=== PATIENT | male | born 1935 | race African-American/Black ===

== ENCOUNTER → 2017-02-08 | Outpatient (CLI) | payer MEDICARE, OTHER ==
[2017-02-08 16:21] LABS: HEMATOCRIT 43.5 % (37.9-51.0); HEMOGLOBIN 14.2 g/dL (13.5-17.0); HGB HCT DIFFERENCE -0.9; MEAN CORPUSCULAR HEMOGLOBIN 30.1 pg (27.0-33.4); MEAN CORPUSCULAR HGB CONC 32.6 g/dL (32.0-36.0); MEAN CORPUSCULAR VOLUME 92 fl (80-97); RED BLOOD COUNT 4.71 10^6/uL (4.35-5.55); RED CELL DISTRIBUTION WIDTH 15.7 % (11.5-14.0)
[2017-02-08 16:43] LABS: ANION GAP 8 (5-19); BLOOD UREA NITROGEN 24 mg/dL (7-20); CALCIUM 9.8 mg/dL (8.4-10.2); CARBON DIOXIDE 31 mmol/L (22-30); CHLORIDE 105 mmol/L (98-107); CREATININE RESULT 1.41 mg/dL (0.52-1.25); GLUCOSE 123 mg/dL (75-110); MAGNESIUM 1.6 mg/dL (1.6-2.3); POTASSIUM 4.4 mmol/L (3.6-5.0); SODIUM 143.8 mmol/L (137-145)
[2017-02-09 08:21] LABS: BASOPHILS % (MANUAL) 0 % (0-2); EOSINOPHILS % (MANUAL) 3 % (0-6); LYMPHOCYTES % (MANUAL) 41 % (13-45); TOTAL CELLS COUNTED 100
[2017-02-09 08:32] LABS: ANISOCYTOSIS SLIGHT; OVALOCYTES SLIGHT; POIKILOCYTOSIS 1+; TARGET CELLS SLIGHT
[2017-02-09 08:33] LABS: PLATELET CLUMPS PRESENT
== END ==
LOC: OD 15:53
PROVIDERS: ATTEND Internal Medicine Cardiovascular Disease
DX: I25.10 Atherosclerotic heart disease of native coronary artery without angina pectoris (principal); I50.22 Chronic systolic (congestive) heart failure
CPT/HCPCS: 36415; 80048; 83735; 85025; 85027; 85610

== ENCOUNTER → 2017-09-22 | Outpatient (CLI) | payer MEDICARE, OTHER ==
--- NOTE | 2017-09-22 17:25 | ST Modified Barium Swallow ---
Recommendation - Recommendations Recommendations: Recommend alternating solids and liquids, and hard swallows to reduce residue. Medical Diagnoses - Medical Diagnoses Medical Diagnosis Description & ICD-10 Code(s): dysphagia R13.10 Other Medical Diagnoses/Co-Morbidities: Patient reports reflux, COPD, heart problems. ST Modified Barium Swallow - General Date: 09/22/17 Referring Physician: Dr. Shady Reece Reason for Referral: globus sensation, coughing with PO intake - History History obtained from: Patient -: Medical - Patient reports difficulty with swallowing, predominately solids, for approximately 2 months. Medications: Patient unable to list medications, does state that he is on a reflux medication. Allergies: none reported. - Functional Status Prior Functional Status: INDEPENDENT: feeding - independent - Subjective Patient/caregiver goal(s): safe swallow Cognitive-Linguistic Function: WNL Speech Intelligibility: WNL Current Nutritional Means: PO Current PO diet: Regular Current symptoms: Coughing, c/o Globus sensation Pain: Patient reports, 0/5 - Objective Assessment: Upright, Left Lateral - Food Trials Used Food trials used: Thin liquids, Pureed, Regular The patient: Was Able to Self Feed - Oral-Motor Skills Dentition: Dentures-Upper, Dentures-Lower Laryngeal Function: Volitional Cough - WFL, Volitional Swallow - WFL - Assessment Oral prep: Normal Labial closure: Adequate Leakage: None Mastication: Adequate Lingual Movement: Normal Oral stage: Normal for this Procedure - Pharyngeal Stage Initiation of Pharyngeal Stage Reflex: Normal Decreased laryngeal elevation: No Reduced Velopharyngeal Closure: no Reduced pressure generation: No reduced tongue-based retraction: No Pre-swallow pooling in valleculae: None Pre-Swallow pooling in pyriforms: None Reduced Thyro-Hyoid approximation: No Reduced epiglottic excursion: No Multiple Swallows with: Cleared w/ Liquid Assist Post-swallow residulas vallecular: Moderate Post-Swallow residuals in pyriforms: Mild Post-Swallow Residuals: throughout pharynx - mild Pharyngeal Stage Comments: Increased calcification of structures in pharyngeal and tracheal area. Functional swallow seen, some residue present after the swallow, mostly clears with liquid wash. - Esophageal Stage Esophageal Stage: Some signs of esophageal issues, may benefit from further gastrointestinal consult for reflux. - Fall Risk Assessment Medications/Conditions that increase fall risks include: Antidepressants, sedatives, anti-arrhythmic, diuretic, benzodiazipenes, neuroleptics. BP regulation problems, cardiac problems, balance or gait deficits, neurological problems. Is patient considered at risk for falls: no Fall Risk Actions Taken: No action needed - Behavioral Observations During evaluation process patient: was pleasant, was cooperative, able to answer questions - Treatment / Educational Needs: Treatment/Education Needs: Treatment consisted of patient education on the role of the Speech Pathologist. Patient's plan of care and golas were communicated as well as scheduling and attendance policies. Recommendations for initial home program were shared. Patient demonstrated understanding and verbalized agreement. - Impression/Summary Laryngeal Penetration: No Tracheal Aspiration: no Effective compensatory strategies: hard swallow Compesatory strategies: liquid wash Risk of Aspiration: Mild Risk of nutritional compromise: None Evaluation and Findings: Functional pharyngeal phase swallow, some residue present post swallow, liquid wash facilitated clearance. - Recommendations Solid diet recommendations: Regular - avoiding specific foods (nuts, seeds, etc. ) Pt/Family education and followup with MD: Yes Dysphagia therapy with STAFF CONSULTANT: no Reflux Precautions: Taught to Patient Recommended techniques: Fully Upright During Meal, Small Bites and Sips, Alternate Bites/Sips Information, Precautions and Recommendations: Patient (Written), Patient (Verbal ) - Time Total Time: 20 - Plan of Care Patient to follow-up with referring physician: Yes Strategies to optimize patient understanding include:: ongoing assessment of educational needs, implementation of educational strategies, and re-education. - - -: Thank you for the opportunity to work with this patient and his/her family. Should you have any questions about this patient's plan or progress, I can be reached at [phone]. Charge G Code? - - -: Yes ST F.L. Impairment Category - Rationale Based On Rationale Based On: Func. Asses. Tool Results - Swallowing Current G8996: CI 1-19% Impaired Goal G8997: CI 1-19% Impaired Discharge G8998: CI 1-19% Impaired
--- NOTE | 2017-09-22 18:02 | RADIOLOGY REPORT (SQ) ---
EXAM DESCRIPTION: YASMINE SWALLOW COMPLETED DATE/TIME: 09/22/2017 9:00 am REASON FOR STUDY: DYSPHAGIA R13.10 DYSPHAGIA, UNSPECIFIED COMPARISON: None. TECHNIQUE: Videofluoroscopic swallowing examination was performed in conjunction with speech patholo gy. Videofluoroscopic imaging was obtained and reviewed and these are the findings: RADIATION DOSE: Fluoro time 2.3 minutes 1 images saved to PACS. LIMITATIONS: None FINDINGS: The patient was brought into the fluoro room and placed upright on a modified barium swall ow chair. The patient was then given multiple consistencies mixed with barium to swallow under live fluoroscopic video guidance. According to the Speech Pathologist there was no penetration or aspirat ion. 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 IMPRESSION: NO EVIDENCE OF PENETRATION OR ASPIRATION.PLEASE SEE SPEECH PATHOLOGIST REPORT FOR OTHER FINDINGS AND RECOMMENDATIONS. COMMENT: None Quality ID [id number]: Final reports for procedures using fluoroscopy that document radiation exposure nathan zenon, or exposure time and number of fluorographic images (if radiation exposure indices are not avail able) TECHNICAL DOCUMENTATION: JOB ID: [id number] [employer]- All Rights Reserved
== END ==
LOC: RAD 08:21
PROVIDERS: ATTEND Otolaryngology
DX: R13.10 Dysphagia, unspecified (principal)
CPT/HCPCS: 74230; 92611; G8996; G8997; G8998

== ENCOUNTER 2017-10-01 16:38 | Inpatient (IN) | payer MEDICARE, OTHER ==
[2017-10-01 17:17] LABS: ABSOLUTE EOSINOPHILS # (AUTO) 0.1 10^3/uL (0.0-0.6); ABSOLUTE MONOCYTES (AUTO) 0.7 10^3/uL (0.1-1.4); BASOPHILS % (AUTO) 0.6 % (0-2); EOSINOPHILS % (AUTO) 1.7 % (0-6); HEMATOCRIT 43.8 % (37.9-51.0); HEMOGLOBIN 14.3 g/dL (13.5-17.0); LYMPHOCYTES % (AUTO) 38.3 % (13-45); MEAN CORPUSCULAR HEMOGLOBIN 30.2 pg (27.0-33.4); MEAN CORPUSCULAR HGB CONC 32.7 g/dL (32.0-36.0); MEAN CORPUSCULAR VOLUME 92 fl (80-97); MONOCYTES % (AUTO) 9.3 % (3-13); PLATELET COUNT 173 10^3/uL (150-450); RED BLOOD COUNT 4.74 10^6/uL (4.35-5.55); RED CELL DISTRIBUTION WIDTH 16.7 % (11.5-14.0); SEGMENTED NEUTROPHILS % (AUTO) 50.1 % (42-78); TOTAL CELLS COUNTED % (AUTO) 100 %; WHITE BLOOD COUNT 7.9 10^3/uL (4.0-10.5)
--- NOTE | 2017-10-01 17:58 | RADIOLOGY REPORT (SQ) ---
EXAM DESCRIPTION: CHEST SINGLE VIEW COMPLETED DATE/TIME: 10/01/2017 5:28 pm REASON FOR STUDY: sob COMPARISON: 02/08/2015 EXAM PARAMETERS: NUMBER OF VIEWS: One view. TECHNIQUE: Single frontal radiographic view of the chest acquired. RADIATION DOSE: NA LIMITATIONS: None. FINDINGS: LUNGS AND PLEURA: Bibasilar patchy mixed interstitial and airspace opacities. Small bilat eral pleural effusions. No focal consolidation. MEDIASTINUM AND HILAR STRUCTURES: No masses. Contour normal. HEART AND VASCULAR STRUCTURES: Cardiomegaly. Mild central vascular congestion. BONES: No acute findings. HARDWARE: None in the chest. OTHER: No other significant finding. IMPRESSION: Constellation of findings consistent with CHF exacerbation. Superimposed infectious pro cess is not excluded. TECHNICAL DOCUMENTATION: JOB ID: [id number] [employer]- All Rights Reserved
--- NOTE | 2017-10-01 18:10 | ER Document Report ---
ED General - General Stated Complaint: SHORTNESS OF BREATH Time Seen by Provider: 10/01/17 17:52 Notes: 81-year-old male to the emergency department for evaluation of shortness of breath. Cannot lay flat. Dyspnea on exertion. Worsening swelling to lower extremities. History of CHF. History of COPD. No have history of blood clots[facility] No open heart surgery. No stents. By Dr. Rouse with cardiology TRAVEL OUTSIDE OF THE [place] IN LAST 30 DAYS: No - HPI Onset: Last week Onset/Duration: Gradual, Worse Severity: Moderate - Related Data Allergies/Adverse Reactions: No Known Allergies Allergy (Verified 12/22/13 22:49) Past Medical History - General Information source: Patient - Social History Smoking Status: Never Smoker Cigarette use (# per day): No Frequency of alcohol use: None Drug Abuse: None Lives with: Spouse/Significant other Family History: Reviewed & Not Pertinent - Past Medical History Cardiac Medical History: Reports: Hx Hypercholesterolemia, Hx Hypertension Denies: Hx Heart Attack Pulmonary Medical History: Reports: Hx COPD Endocrine Medical History: Reports: Hx Diabetes Mellitus Type 2, Hx Hyperthyroidism Past Surgical History: Reports: Hx Appendectomy, Hx Genitourinary Surgery - prostate ca surgery - Immunizations Hx Diphtheria, Pertussis, Tetanus Vaccination: Yes Review of Systems - Review of Systems Constitutional: No symptoms reported EENT: No symptoms reported Cardiovascular: Orthopnea, Dyspnea, Edema, Paroxysmal Nocturnal Dysp. denies: Syncope, Dizziness, Lightheaded Respiratory: Short of breath Gastrointestinal: No symptoms reported Genitourinary: No symptoms reported Male Genitourinary: No symptoms reported Musculoskeletal: No symptoms reported Skin: No symptoms reported Hematologic/Lymphatic: No symptoms reported Neurological/Psychological: No symptoms reported Physical Exam - Vital signs Vitals: Temp Pulse Resp BP Pulse Ox 98.2 F 44 L 13 146/70 H 98 10/01/17 16:40 10/01/17 16:40 10/01/17 16:40 10/01/17 16:40 10/01/17 16:40 Interpretation: Normal - General General appearance: Appears well, Alert - HEENT Head: Normocephalic, Atraumatic Eyes: Normal Pupils: PERRL - Respiratory Respiratory status: No respiratory distress Chest status: Nontender Breath sounds: Wheezing - Faint expiratory wheeze Chest palpation: Normal - Cardiovascular Rhythm: Regular Murmur: No Gallop: S3 gallop - Abdominal Inspection: Normal Distension: No distension Bowel sounds: Normal Tenderness: Nontender Organomegaly: No organomegaly - Back Back: Normal, Nontender - Extremities General upper extremity: Normal inspection, Nontender, Normal color, Normal ROM , Normal temperature General lower extremity: Normal inspection, Nontender, Edema, Normal color, Normal ROM, Normal temperature, Normal weight bearing, Other - 3+ pitting edema bilateral lower extremities.. No: Ralph's sign - Neurological Neuro grossly intact: Yes Cognition: Normal Orientation: AAOx4 [place] Coma Scale Eye Opening: Spontaneous [place] Coma Scale Verbal: Oriented [place] Coma Scale Motor: Obeys Commands [place] Coma Scale Total: 15 Speech: Normal Motor strength normal: LUE, RUE, LLE, RLE Sensory: Normal - Psychological Associated symptoms: Normal affect, Normal mood - Skin Skin Temperature: Warm Skin Moisture: Dry Skin Color: Normal Course - Re-evaluation Re-evalutation: 10/01/17 19:48 This is a very pleasant 81-year-old -[place] male in no acute distress with complaint of shortness of breath. Patient showing manifestations of congestive heart failure. Large amount of lower extremity edema with chest x- ray consistent with CHF exacerbation. Will start on aspirin and Lasix. Consult with hospitalist for admission at this time. - Vital Signs Vital signs: Temp Pulse Resp BP Pulse Ox 98.2 F 44 L 22 H 131/70 H 99 10/01/17 16:40 10/01/17 16:40 10/01/17 19:01 10/01/17 19:01 10/01/17 19:00 - Laboratory Result Diagrams: 10/01/17 17:00 10/01/17 18:19 Laboratory results interpreted by me: 10/01/17 10/01/17 10/01/17 17:00 18:19 18:19 RDW 16.7 H BUN 28 H Creatinine 1.62 H Est GFR ( Amer) 49 L Est GFR (Non-Af Amer) 41 L NT-Pro-B Natriuret Pep 8870 H Total Protein 6.1 L Urine Glucose (UA) Ur Leukocyte Esterase 10/01/17 18:23 RDW BUN Creatinine Est GFR ( Amer) Est GFR (Non-Af Amer) NT-Pro-B Natriuret Pep Total Protein Urine Glucose (UA) 50 H Ur Leukocyte Esterase TRACE H - EKG Interpretation by Me EKG shows normal: Sinus rhythm, [place], Intervals, QRS Complexes, ST-T Waves Rhythm: PVC's [place]/QRS: RBBB Discharge - Discharge Clinical Impression: Congestive heart failure (CHF) Qualifiers: Congestive heart failure type: unspecified Congestive heart failure chronicity : acute on chronic Qualified Code(s): I50.9 - Heart failure, unspecified Admitting Provider: Hospitalist Unit Admitted: Telemetry - Francois Referrals: SHARATH ALVAREZ MD [Primary Care Provider] - Follow up as needed
[2017-10-01 18:46] LABS: ALANINE AMINOTRANSFERASE 69 U/L (21-72); ALBUMIN 3.5 g/dL (3.5-5.0); ALKALINE PHOSPHATASE 81 U/L (38-126); ANION GAP 8 (5-19); ASPARTATE AMINO TRANSFERASE 41 U/L (17-59); BILIRUBIN,DIRECT 0.3 mg/dL (0.0-0.4); BILIRUBIN,TOTAL 0.5 mg/dL (0.2-1.3); BLOOD UREA NITROGEN 28 mg/dL (7-20); CALCIUM 9.9 mg/dL (8.4-10.2); CARBON DIOXIDE 28 mmol/L (22-30); CHLORIDE 106 mmol/L (98-107); CREATINE KINASE 105 U/L (55-170); GLUCOSE 105 mg/dL (75-110); POTASSIUM 4.4 mmol/L (3.6-5.0); SODIUM 142.4 mmol/L (137-145); TOTAL PROTEIN 6.1 g/dL (6.3-8.2)
[2017-10-01 18:48] LABS: APPEARANCE,URINE CLEAR; BILIRUBIN,URINE NEGATIVE (NEGATIVE); COLOR,URINE YELLOW; GLUCOSE, URINE 50 mg/dL (NEGATIVE); KETONES,URINE NEGATIVE (NEGATIVE); LEUKOCYTE ESTERASE,URINE TRACE (NEGATIVE); NITRITE,URINE NEGATIVE (NEGATIVE); PROTEIN,URINE NEGATIVE (NEGATIVE); URINE SPECIFIC GRAVITY 1.013; UROBILINOGEN,URINE NEGATIVE mg/dL (<2.0)
[2017-10-01 19:14] LABS: CREATINE KINASE MB 2.68 ng/mL (<4.55)
[2017-10-01 19:19] LABS: TROPONIN I 0.06 ng/mL
[2017-10-01] MEDS ORDERED: ASPIRIN 81 MG TABLET, CHEWABLE PO ONE (19:40)
[2017-10-01] MEDS ORDERED: FUROSEMIDE INJ/PF 40 MG/4 ML SDV IV ONE (19:40)
[2017-10-01] MEDS ORDERED: CHLORPHENIRAMINE MALEATE 4 MG TABLET PO ONE (19:47)
[2017-10-01] MEDS ORDERED: ENALAPRILAT DIHYDRATE INJ/PF 1.25 MG/1 ML SDV IV PRN (19:47)
[2017-10-01] MEDS ORDERED: HYDRALAZINE HCL INJ/PF 20 MG/1 ML SDV IV PRN (19:47)
[2017-10-01] MEDS ORDERED: MAG HYDROX/AL HYDROX/SIMETH SUSP 30 ML UDCUP PO PRN (19:47)
[2017-10-01] MEDS ORDERED: ACETAMINOPHEN 325 MG TABLET PO PRN (19:47)
[2017-10-01] MEDS ORDERED: LEVALBUTEROL HCL NEB 1.25 MG/3 ML AMPUL NEB ONE (19:47)
[2017-10-01] MEDS ORDERED: IPRATROPIUM BROMIDE 0.02% NEB 0.5 MG/2.5 ML AMPUL NEB ONE (19:47)
[2017-10-01] MEDS ORDERED: FLUTICASONE NASAL SPRAY 50 MCG/SPRY 120 SPRAY/16 GM NASL ONE (20:30)
[2017-10-01] MEDS ORDERED: NITROGLYCERIN 5 MG (0.2 MG/HR) PATCH.TD24 TD ONE (20:30)
[2017-10-01] MEDS ORDERED: RAMIPRIL 5 MG CAPSULE PO ONE (21:00)
[2017-10-01] MEDS ORDERED: CHLORPHENIRAMINE MALEATE 4 MG TABLET ONE (21:22)
[2017-10-01] MEDS ORDERED: FLUTICASONE NASAL SPRAY 50 MCG/SPRY 120 SPRAY/16 GM ONE (21:23)
[2017-10-01] MEDS ORDERED: RAMIPRIL 5 MG CAPSULE ONE (21:23)
[2017-10-01] MEDS: HEPARIN SOD (PORCINE) 5,000 UNIT/ML 1 ML SYRINGE SUBCUT SCH (21:42)
[2017-10-01] MEDS: CARVEDILOL 3.125 MG TABLET PO SCH (21:42)
[2017-10-01] MEDS ORDERED: GLUCAGON,HUMAN RECOMB 1 MG INJ IM PRN (21:59)
[2017-10-01] MEDS ORDERED: DEXTROSE 40% GEL 15 GM TUBE PO PRN ×2 (21:59)
[2017-10-01] MEDS ORDERED: INSULIN LISPRO 100 UNIT/ML 3 ML VIAL SUBCUT PRN (21:59)
[2017-10-01] MEDS ORDERED: DEXTROSE 50%-WATER 25 GM/50 ML DISP.SYRIN IV PRN ×2 (21:59)
--- NOTE | 2017-10-01 22:19 | EKG REPORT ---
SEVERITY:- ABNORMAL ECG - SINUS RHYTHM RBBB AND LPFB : Confirmed by: Maria L Esqueda 01-Oct-2017 22:17:36
[2017-10-01] MEDS ORDERED: HUM INSULIN NPH/REG INSULIN HM 100 UNIT/1 ML 3 ML SUBCUT ONE (22:46)
[2017-10-02 01:22] LABS: CREATINE KINASE MB 2.39 ng/mL (<4.55); TROPONIN I 0.056 ng/mL
[2017-10-02] MEDS: HEPARIN SOD (PORCINE) 5,000 UNIT/ML 1 ML SYRINGE SUBCUT SCH ×2 (05:35→13:33)
--- NOTE | 2017-10-02 05:46 | PDOC H&P ---
History of Present Illness Admission Date/PCP: 10/01/17 20:04 SHARATH ALVAREZ MD Patient complains of: Shortness of breath and leg swelling History of Present Illness: ABIGAIL BOUDREAUX is a 81 year old male with a past medical history of congestive heart failure, COPD, Coronary artery disease, diabetes and hypothyroidism. Patient presents with 3 days of exertional shortness of breath, orthopnea and leg swelling. In the emergency room he is found to have a tachypnea, BNP of 9000, and 2+ leg edema bilaterally, TSH in normal range. He admits dietary indiscretion, he denies changes in medication, heat intolerance, chest pain nausea vomiting diaphoresis or palpitations. He receives IV Lasix and referred to the hospitalist for admission. Past Medical History Cardiac Medical History: Reports: Congestive Heart Failure, Hyperlipidema, Hypertension Denies: Myocardial Infarction Pulmonary Medical History: Reports: Chronic Obstructive Pulmonary Disease (COPD) Endocrine Medical History: Reports: Diabetes Mellitus Type 2, Hyperthyroidism Renal/ Medical History: Reports: Chronic Kidney Disease Psychiatric Medical History: Denies: Alcohol Dependency, Attention Deficit Hyperactivity Disorder, Bipolar Disorder, Dementia, Depression, General Anxiety Disorder, Substance Abuse, Tobacco Dependency Hematology: Denies: Anemia, Sickle Cell Disease Past Surgical History Past Surgical History: Reports: Appendectomy Social History Information Source: Patient Lives with: Spouse/Significant other Smoking Status: Never Smoker Hx Recreational Drug Use: No Drugs: None - Advance Directive Resuscitation Status: Full Code Family History Family History: Hypertension Parental Family History Reviewed: Yes Children Family History Reviewed: Yes Sibling(s) Family History Reviewed.: Yes Medication/Allergy Home Medications: Insulin Lispro Protamin/Lispro [Humalog Mix 75-25 100 unit/mL] 0 unit SUBCUT ASDIR PRN 10/25/12 Metformin HCl [Glucophage XR 500 mg Tablet] 500 mg PO BID 10/25/12 Methimazole [Northyx] 5 mg PO DAILY 10/25/12 Multivitamin [Multiple Vitamins] 1 each PO DAILY 10/25/12 Ramipril [Altace 5 Mg Capsule] 5 mg PO DAILY 10/25/12 Amox Tr/Potassium Clavulanate [Augmentin 875-125 mg Tablet] 1 tab PO BID #20 tablet 02/08/15 Allergies/Adverse Reactions: No Known Allergies Allergy (Verified 12/22/13 22:49) Review of Systems Constitutional: ABSENT: chills, fever(s), headache(s), weight gain, weight loss Eyes: ABSENT: visual disturbances Ears: ABSENT: hearing changes Cardiovascular: PRESENT: dyspnea on exertion, edema, orthropnea. ABSENT: chest pain, palpitations Respiratory: PRESENT: cough, sputum. ABSENT: hemoptysis Gastrointestinal: ABSENT: abdominal pain, constipation, diarrhea, hematemesis, hematochezia, nausea, vomiting Genitourinary: ABSENT: dysuria, hematuria Musculoskeletal: PRESENT: muscle weakness. ABSENT: joint swelling Integumentary: ABSENT: rash, wounds Neurological: ABSENT: abnormal gait, abnormal speech, confusion, dizziness, focal weakness, syncope Psychiatric: ABSENT: anxiety, depression, homidical ideation, suicidal ideation Endocrine: ABSENT: cold intolerance, heat intolerance, polydipsia, polyuria Hematologic/Lymphatic: ABSENT: easy bleeding, easy bruising Physical Exam Vital Signs: Temp Pulse Resp BP Pulse Ox 98.0 F 44 L 18 119/84 98 10/02/17 03:00 10/01/17 16:40 10/02/17 05:01 10/02/17 05:01 10/02/17 05:00 Intake & Output 09/30/17 10/01/17 10/02/17 11:59 11:59 11:59 Output Total 1300 Balance -1300 General appearance: PRESENT: cooperative, mild distress Head exam: PRESENT: atraumatic, normocephalic Eye exam: PRESENT: conjunctiva pink, EOMI, PERRLA. ABSENT: scleral icterus Ear exam: PRESENT: normal external ear exam Mouth exam: PRESENT: moist, tongue midline Neck exam: ABSENT: carotid bruit, JVD, lymphadenopathy, thyromegaly Respiratory exam: PRESENT: accessory muscle use, crackles, prolonged expiratory phas, tachypnea. ABSENT: chest wall tenderness Cardiovascular exam: PRESENT: RRR, rubs, +S2 Pulses: PRESENT: normal dorsalis pedis pul Vascular exam: PRESENT: normal capillary refill GI/Abdominal exam: PRESENT: normal bowel sounds, soft. ABSENT: distended, guarding, mass, organolmegaly, rebound, tenderness Rectal exam: PRESENT: deferred Extremities exam: PRESENT: full ROM, +2 edema. ABSENT: calf tenderness, clubbing, pedal edema Neurological exam: PRESENT: alert, awake, oriented to person, oriented to place , oriented to time, oriented to situation, CN II-XII grossly intact. ABSENT: motor sensory deficit Psychiatric exam: PRESENT: appropriate affect, normal mood. ABSENT: homicidal ideation, suicidal ideation Skin exam: PRESENT: dry, intact, warm. ABSENT: cyanosis, rash Results Laboratory Results: 10/02/17 10/02/17 00:38 00:38 Creatine Kinase 96 CK-MB (CK-2) 2.39 Troponin I 0.056 Impressions: Chest X-Ray 10/01/17 16:50 IMPRESSION: Constellation of findings consistent with CHF exacerbation. Superimposed infectious process is not excluded. Assessment & Plan - Diagnosis (1) Congestive heart failure (CHF) Qualifiers: Congestive heart failure type: unspecified Congestive heart failure chronicity: acute on chronic Qualified Code(s): I50.9 - Heart failure, unspecified Is this a current diagnosis for this admission?: Yes Plan: Blood pressure and rate control, likely secondary to dietary indiscretion, gentle diuresis and education ordered follow-up TSH and cardiac enzymes. (2) COPD exacerbation Is this a current diagnosis for this admission?: Yes Plan: Secondary to #1, avoid beta-2 agonist, Xopenex and Atrovent with flutter valve. (3) Diabetes Is this a current diagnosis for this admission?: Yes Plan: Home regiment with sliding scale and diabetic education (4) Chronic kidney disease (CKD) Is this a current diagnosis for this admission?: Yes Plan: Limit loop diuretic, nephrotoxic meds and doses follow-up chemistry. - Time Time Spent: 50 to 70 Minutes
[2017-10-02 06:50] LABS: ABSOLUTE BASOPHILS # (AUTO) 0.1 10^3/uL (0.0-0.2); ABSOLUTE EOSINOPHILS # (AUTO) 0.1 10^3/uL (0.0-0.6); ABSOLUTE LYMPHOCYTES (AUTO) 2.3 10^3/uL (0.5-4.7); ABSOLUTE MONOCYTES (AUTO) 0.7 10^3/uL (0.1-1.4); ABSOLUTE NEUT (AUTO) 3.1 10^3/uL (1.7-8.2); BASOPHILS % (AUTO) 0.9 % (0-2); EOSINOPHILS % (AUTO) 2.3 % (0-6); HEMATOCRIT 41.8 % (37.9-51.0); HEMOGLOBIN 13.7 g/dL (13.5-17.0); LYMPHOCYTES % (AUTO) 36.6 % (13-45); MEAN CORPUSCULAR HGB CONC 32.8 g/dL (32.0-36.0); MEAN CORPUSCULAR VOLUME 92 fl (80-97); PLATELET COUNT 147 10^3/uL (150-450); RED BLOOD COUNT 4.56 10^6/uL (4.35-5.55); RED CELL DISTRIBUTION WIDTH 16.5 % (11.5-14.0); SEGMENTED NEUTROPHILS % (AUTO) 49.2 % (42-78); TOTAL CELLS COUNTED % (AUTO) 100 %; WHITE BLOOD COUNT 6.4 10^3/uL (4.0-10.5)
[2017-10-02 07:07] LABS: ANION GAP 8 (5-19); BLOOD UREA NITROGEN 30 mg/dL (7-20); CARBON DIOXIDE 29 mmol/L (22-30); CHLORIDE 105 mmol/L (98-107); CHOLESTEROL 139.03 mg/dL (0-200); CREATINE KINASE 96 U/L (55-170); GLUCOSE 111 mg/dL (75-110); POTASSIUM 4.3 mmol/L (3.6-5.0); SODIUM 141.6 mmol/L (137-145); TRIGLYCERIDES 40 mg/dL (<150)
[2017-10-02 07:18] LABS: CREATINE KINASE MB 2.51 ng/mL (<4.55); DIRECT LDL 65 mg/dL (<100); TROPONIN I 0.067 ng/mL
[2017-10-02] MEDS ORDERED: DOCUSATE SODIUM 100 MG CAPSULE PO SCH (10:00)
[2017-10-02] MEDS ORDERED: FUROSEMIDE INJ/PF 40 MG/4 ML SDV IV SCH (10:00)
[2017-10-02] MEDS ORDERED: RAMIPRIL 5 MG CAPSULE PO SCH (10:00)
[2017-10-02] MEDS ORDERED: FLUTICASONE NASAL SPRAY 50 MCG/SPRY 120 SPRAY/16 GM NASL SCH (10:00)
[2017-10-02] MEDS ORDERED: POTASSIUM CHLORIDE 10 MEQ TABLET.SA PO SCH (10:00)
[2017-10-02] MEDS ORDERED: ASPIRIN 81 MG TABLET, ENT COATED PO SCH (10:00)
[2017-10-02] MEDS: CARVEDILOL 3.125 MG TABLET PO SCH (11:33)
[2017-10-02 13:52] LABS: CREATINE KINASE MB 2.3 ng/mL (<4.55); TROPONIN I 0.055 ng/mL
[2017-10-02 15:15] VITALS: BP 113/96
--- NOTE | 2017-10-02 16:42 | PDOC DISCHARGE SUMMARY ---
General - Admit/Disc Date/PCP Admission Date/Primary Care Provider: 10/01/17 20:04 SHARATH ALVAREZ MD Discharge Date: 10/02/17 - Discharge Diagnosis (1) COPD exacerbation Is this a current diagnosis for this admission?: Yes (2) Chronic kidney disease (CKD) Is this a current diagnosis for this admission?: Yes (3) Congestive heart failure (CHF) Is this a current diagnosis for this admission?: Yes (4) Diabetes Is this a current diagnosis for this admission?: Yes - Additional Information Resuscitation Status: Full Code Discharge Diet: Cardiac Discharge Activity: Activity As Tolerated, Balance Activity w/Rest, Slowly Increase Activity Prescriptions: Aspirin [Ecotrin 81 mg EC Tablet] 81 mg PO DAILY #90 tabec Carvedilol [Coreg 3.125 mg Tablet] 3.125 mg PO Q12 #60 tablet Home Medications: Aspirin [Ecotrin 81 mg EC Tablet] 81 mg PO DAILY #90 tabec 10/02/17 Carvedilol [Coreg 3.125 mg Tablet] 3.125 mg PO Q12 #60 tablet 10/02/17 Furosemide [Lasix 20 mg Tablet] 20 mg PO DAILY 10/02/17 Hydrochlorothiazide [Hydrodiuril 25 mg Tablet] 25 mg PO DAILY 10/02/17 Insulin Aspart Protam & Aspart [Novolog Mix 70-30 Vial] 26 unit SQ Q12 10/02/17 Methimazole [Tapazole 5 mg Tablet] 2.5 mg PO DAILY 10/02/17 Omeprazole 40 mg PO DAILY 10/02/17 Pravastatin Sodium [Pravachol] 20 mg PO DAILY 10/02/17 Primidone [Mysoline 50 mg Tablet] 75 mg PO QHS 10/02/17 Ranitidine HCl [Zantac 150 mg Tablet] 150 mg PO QHS 10/02/17 History of Present Illness History of Present Illness: Per H&P by Dr. Parrish: ABIGAIL BOUDREAUX is a 81 year old male with a past medical history og congestive heart failure, COPD, coronary artery disease, diabetes and hypothyroidism. Patient presents with 3 days of exertional shortness of breath, orthopnea, and leg swelling. In the emergency room he is found to have a tachypnea, BNP of 9000, and 2+ leg edema bilaterally, TSH in normal range. He admits to dietary indiscretion, he denies changes in medication, heat intolerance, chest pain nausea vomiting diaphoresis or palpitations. He receives IV Lasix and referred to the hospitalist for admission. Hospital Course Hospital Course: The patient was admitted for CHF exacerbation. He was provided gentle diuresis with IV lasix. Follow up TSH was normal. Serial troponins were indeterminately elevated secondary to chronic kidney disease and flat. The patients orthopnea and dyspnea on exertion improved; he maintained oxygen saturations >94% while ambulatory on room air. His lower leg edema decreased slightly. The patient was anxious to be discharged to home and declined to stay for echocardiogram. He was encouraged to eat a low sodium diet, take all medications as prescribed, and follow up with his primary care provider within 1 -2 weeks. Recommend that he have an outpatient echocardiogram completed. At time of discharge, the patient was in stable condition and maintaining oxygen saturations on room air. Physical Exam Vital Signs: Temp Pulse Resp BP Pulse Ox 97.5 F 44 L 11 L 113/96 H 98 10/02/17 14:42 10/01/17 16:40 10/02/17 15:00 10/02/17 15:01 10/02/17 15:00 Intake & Output 10/01/17 10/02/17 10/03/17 06:59 06:59 06:59 Output Total 1600 Balance -1600 General appearance: PRESENT: no acute distress, cooperative, well-developed, well-nourished Head exam: PRESENT: atraumatic, normocephalic Eye exam: PRESENT: conjunctiva pink, EOMI, PERRLA. ABSENT: scleral icterus Ear exam: PRESENT: normal external ear exam Mouth exam: PRESENT: moist, tongue midline Neck exam: ABSENT: carotid bruit, JVD, lymphadenopathy, thyromegaly Respiratory exam: PRESENT: clear to auscultation christin, prolonged expiratory phas , symmetrical, unlabored. ABSENT: rales, rhonchi, wheezes Cardiovascular exam: PRESENT: RRR, +S1, +S2. ABSENT: diastolic murmur, rubs, systolic murmur Pulses: PRESENT: normal dorsalis pedis pul Vascular exam: PRESENT: normal capillary refill GI/Abdominal exam: PRESENT: normal bowel sounds, soft. ABSENT: distended, guarding, mass, organolmegaly, rebound, tenderness Rectal exam: PRESENT: deferred Extremities exam: PRESENT: full ROM. ABSENT: calf tenderness, clubbing, pedal edema Neurological exam: PRESENT: alert, awake, oriented to person, oriented to place , oriented to time, oriented to situation, CN II-XII grossly intact. ABSENT: motor sensory deficit Psychiatric exam: PRESENT: appropriate affect, normal mood. ABSENT: homicidal ideation, suicidal ideation Skin exam: PRESENT: dry, intact, warm. ABSENT: cyanosis, rash Results Laboratory Results: 10/02/17 06:30 10/02/17 06:30 10/02/17 10/02/17 06:30 06:30 WBC 6.4 RBC 4.56 Hgb 13.7 Hct 41.8 MCV 92 MCH 30.0 MCHC 32.8 RDW 16.5 H Plt Count 147 L Seg Neutrophils % 49.2 Lymphocytes % 36.6 Monocytes % 11.0 Eosinophils % 2.3 Basophils % 0.9 Absolute Neutrophils 3.1 Absolute Lymphocytes 2.3 Absolute Monocytes 0.7 Absolute Eosinophils 0.1 Absolute Basophils 0.1 Sodium 141.6 Potassium 4.3 Chloride 105 Carbon Dioxide 29 Anion Gap 8 BUN 30 H Creatinine 1.52 H Est GFR ( Amer) 53 L Est GFR (Non-Af Amer) 44 L Glucose 111 H Calcium 10.0 Triglycerides 40 Cholesterol 139.03 LDL Cholesterol Direct 65 VLDL Cholesterol 8.0 L HDL Cholesterol 65 10/02/17 10/02/17 10/02/17 00:38 00:38 06:30 Creatine Kinase 96 95 CK-MB (CK-2) 2.39 Troponin I 0.056 10/02/17 10/02/17 10/02/17 06:30 06:30 13:18 Creatine Kinase 96 CK-MB (CK-2) 2.51 2.30 Troponin I 0.067 0.055 Impressions: Chest X-Ray 10/01/17 16:50 IMPRESSION: Constellation of findings consistent with CHF exacerbation. Superimposed infectious process is not excluded. Qualifiers PATEINT BEING DISCHARGED WITH ANY OF THE FOLLOWING DIAGNOSIS?: Heart Failure HF Pt being discharged on ACEI for LVEF less than 40%?: No Reason(s) for not prescribing ACEI:: Medical Contraindication - CKD HF Pt being discharged on ARBS for LVEF less than 40%?: No Reason(s) for not prescribing ARBS:: Medical Contraindication - CKD
[2017-10-02] MEDS ORDERED: NITROGLYCERIN 5 MG (0.2 MG/HR) PATCH.TD24 TD SCH (18:00)
[2017-10-02] MEDS ORDERED: HUM INSULIN NPH/REG INSULIN HM 100 UNIT/1 ML 3 ML SUBCUT ONE (22:00)
== END 2017-10-02 15:20 | disposition home or self-care (01) | DRG 293 ==
LOC: ER 16:38 → EH 20:04
PROVIDERS: ADMIT Internal Medicine; ATTEND Internal Medicine
DX: I13.0 Hypertensive heart and chronic kidney disease with heart failure and stage 1 through stage 4 chronic kidney disease, or unspecified chronic kidney disease (principal); I50.9 Heart failure, unspecified; E78.00 Pure hypercholesterolemia, unspecified; Z90.49 Acquired absence of other specified parts of digestive tract; I25.10 Atherosclerotic heart disease of native coronary artery without angina pectoris; E11.9 Type 2 diabetes mellitus without complications; E03.9 Hypothyroidism, unspecified; N18.9 Chronic kidney disease, unspecified; E11.22 Type 2 diabetes mellitus with diabetic chronic kidney disease; E87.70 Fluid overload, unspecified; J44.9 Chronic obstructive pulmonary disease, unspecified; Z79.82 Long term (current) use of aspirin; Z79.4 Long term (current) use of insulin
CPT/HCPCS: 36415; 71045; 80048; 80053; 80061; 81001; 82550; 82553; 82962; 83036; 83735; 83880; 84443; 84484; 85025; 93005; 93010; 94667; 99285; J1644; J1815; J1940; J3490

== ENCOUNTER → 2017-10-03 | Outpatient (CLI) | payer MEDICARE, OTHER ==
--- NOTE | 2017-10-03 12:37 | RADIOLOGY REPORT (SQ) ---
EXAM DESCRIPTION: BARIUM SWALLOW PHARYNX ONLY COMPLETED DATE/TIME: 10/03/2017 9:50 am REASON FOR STUDY: DYSPHAGIA (R13.10) R13.10 DYSPHAGIA, UNSPECIFIED COMPARISON: Speech pathology video assisted swallowing study 09/22/2017 TECHNIQUE: Under fluoroscopic guidance, patient ingested effervescent granules followed by thick and thin barium. Fluoroscopic spot images and routine radiographic images acquired and stored on PACS. 12 MM BARIUM TABLET GIVEN: Yes The 12 mm barium tablet paused above the GE junction for 3 to 5 minutes before dropping into the stom ach. This reproduced the patient's symptoms. LIMITATIONS: None. FLUOROSCOPY TIME: FLUORO TIME: 55 seconds 13 digital images saved to PACS. FINDINGS: NEUROMUSCULAR COORDINATION OF SWALLOW: Trace subglottic aspiration of thick barium on swal lowing ESOPHAGEAL MOTILITY: Tertiary contractions ESOPHAGEAL MUCOSA: Diffuse esophageal mucosal irregularity, question thrush or diffuse esophagitis GASTRO-ESOPHAGEAL JUNCTION: No hiatal hernia. Mild intermittent gastroesophageal reflux to the mid 3 rd of the esophagus NON-GI TRACT STRUCTURES: No significant finding. OTHER: No other significant finding. IMPRESSION: Gastroesophageal reflux Mild diffuse mucosal irregularity, question diffuse esophagitis with thrush Tertiary contractions of the esophagus with slow passage of the 12 mm barium tablet Trace subglottic aspiration of thick barium COMMENT: Quality ID [id number]: Final reports for procedures using fluoroscopy that document radiation exp osure indices, or exposure time and number of fluorographic images (if radiation exposure indices are not available) TECHNICAL DOCUMENTATION: JOB ID: [id number] [employer] All Rights Reserved
== END ==
LOC: RAD 09:00
PROVIDERS: ATTEND Otolaryngology
DX: R13.10 Dysphagia, unspecified (principal)
CPT/HCPCS: 74210

== ENCOUNTER 2018-06-09 06:09 | Inpatient (IN) | payer MEDICARE, OTHER ==
[2018-06-09] MEDS ORDERED: IPRATROPIUM/ALBUTEROL 0.5-2.5 MG/3 ML AMPUL NEB ONE (06:44)
[2018-06-09] MEDS ORDERED: METHYLPREDNISOLONE INJ 125 MG/2 ML SDV IV ONE (06:45)
[2018-06-09] MEDS ORDERED: ALBUTEROL SULFATE 0.083% NEB 2.5 MG/3 ML AMPUL NEB ONE (06:45)
[2018-06-09 06:49] LABS: ABSOLUTE BASOPHILS # (AUTO) 0.1 10^3/uL (0.0-0.2); ABSOLUTE EOSINOPHILS # (AUTO) 0.2 10^3/uL (0.0-0.6); ABSOLUTE LYMPHOCYTES (AUTO) 2.4 10^3/uL (0.5-4.7); ABSOLUTE MONOCYTES (AUTO) 0.7 10^3/uL (0.1-1.4); ABSOLUTE NEUT (AUTO) 2.8 10^3/uL (1.7-8.2); BASOPHILS % (AUTO) 0.9 % (0-2); HEMATOCRIT 42.9 % (37.9-51.0); HEMOGLOBIN 14.2 g/dL (13.5-17.0); LYMPHOCYTES % (AUTO) 39.4 % (13-45); MEAN CORPUSCULAR HGB CONC 33.1 g/dL (32.0-36.0); MEAN CORPUSCULAR VOLUME 94 fl (80-97); MONOCYTES % (AUTO) 10.8 % (3-13); PLATELET COUNT 136 10^3/uL (150-450); RED BLOOD COUNT 4.58 10^6/uL (4.35-5.55); RED CELL DISTRIBUTION WIDTH 15.5 % (11.5-14.0); SEGMENTED NEUTROPHILS % (AUTO) 45.9 % (42-78); TOTAL CELLS COUNTED % (AUTO) 100 %
--- NOTE | 2018-06-09 07:06 | ER Document Report ---
ED General - General Chief Complaint: Shortness Of Breath Stated Complaint: SHORTNESS OF BREATH Time Seen by Provider: 06/09/18 06:35 TRAVEL OUTSIDE OF THE [place] IN LAST 30 DAYS: No - HPI Notes: Patient is a 82-year-old male that presents to the emergency department for chief complaint of shortness of breath. Patient presents from home complaining of shortness of breath that started yesterday. He states it feels like he cannot take a deep breath in. He has COPD and congestive heart failure. He did take his Lasix yesterday but had missed the prior few days. He states his ankles seem only slightly more swollen than usual. He also has albuterol nebulizer at home that he has been using occasionally but not routinely. He denies any chest pain or tightness, diaphoresis, nausea/vomiting, cough and fevers Past Medical History: Congestive heart failure, COPD, hypertension Past Surgical History: Pacer defibrillator Social History: Daily tobacco, denies drugs and alcohol Family History: Reviewed and noncontributory for presenting illness Allergies: Reviewed, see documented allergy list. REVIEW OF SYSTEMS: CONSTITUTIONAL : No fever No chills No diaphoresis No recent illness EENT: No vision changes No congestion No sore throat CARDIOVASCULAR: No chest pain No palpitations RESPIRATORY: shortness of breath No cough No difficulty breathing GASTROINTESTINAL: No abdominal pain No nausea No vomiting No diarrhea GENITOURINARY: No dysuria No hematuria No difficulty urinating MUSCULOSKELETAL: No back pain No leg pain No arm pain SKIN: No rashes No lesions LYMPHATIC: No swollen, enlarged glands. NEUROLOGICAL: No lightheadedness No headache No weakness No paresthesias PSYCHIATRIC: No anxiety No depression PHYSICAL EXAMINATION: Vital signs reviewed, nursing noted reviewed. GENERAL: Well-appearing, well-nourished and in no acute distress. HEAD: Atraumatic, normocephalic. EYES: Eyes appear normal, extraocular movements intact, sclera anicteric, conjunctiva are normal. ENT: nares patent, oropharynx clear without exudates. Moist mucous membranes. NECK: Normal range of motion, supple without lymphadenopathy LUNGS: Breath sounds diminished and wheezing bilaterally HEART: Regular rate and rhythm without murmurs ABDOMEN: Soft, nontender, normoactive bowel sounds. No rebound, guarding, or rigidity. No masses appreciated. EXTREMITIES: Nontender, good range of motion +2 pitting edema bilateral lower extremities, symmetric. NEUROLOGICAL: No focal neurological deficits. Moves all extremities spontaneously Motor and sensory grossly intact on exam. PSYCH: Normal mood, normal affect. SKIN: Warm, Dry, normal turgor, no rashes or lesions noted on exposed skin - Related Data Allergies/Adverse Reactions: No Known Allergies Allergy (Verified 10/02/17 06:53) Past Medical History - Social History Smoking Status: Current Every Day Smoker Frequency of alcohol use: None Family History: Hypertension Patient has suicidal ideation: No Patient has homicidal ideation: No - Past Medical History Cardiac Medical History: Reports: Hx Congestive Heart Failure, Hx Hypercholesterolemia, Hx Hypertension Denies: Hx Heart Attack Pulmonary Medical History: Reports: Hx COPD Endocrine Medical History: Reports: Hx Diabetes Mellitus Type 2, Hx Hyperthyroidism Renal/ Medical History: Denies: Hx Peritoneal Dialysis Psychiatric Medical History: Denies: Hx Attention Deficit Hyperactivity Disorder, Hx Bipolar Disorder, Hx Dementia, Hx Depression Past Surgical History: Reports: Hx Appendectomy, Hx Genitourinary Surgery - prostate ca surgery - Immunizations Hx Diphtheria, Pertussis, Tetanus Vaccination: Yes Review of Systems - Review of Systems Notes: Dictated Physical Exam - Vital signs Vitals: Temp Pulse Resp BP Pulse Ox 97.8 F 43 L 18 135/76 H 98 06/09/18 06:09 06/09/18 06:09 06/09/18 06:09 06/09/18 06:09 06/09/18 06:09 - Notes Notes: Dictated Course - Re-evaluation Re-evalutation: 06/09/18 07:05 Vitals reviewed. Patient oxygenating well on room air. He was given albuterol , DuoNeb, and Solu-Medrol for COPD exacerbation. Lab work shows slight increase in creatinine and indeterminate troponin of 0.065. Patient was given aspirin for elevated troponin and possible ACS. He will be admitted to the hospital for further monitoring. On reevaluation after aerosols patient did have symptomatic improvement. He is still stable on room air. Case discussed with admitting physician Dr. Carver who accepted admission. 06/09/18 09:08 Laboratory 06/09/18 06/09/18 06/09/18 06:36 06:36 07:20 WBC 6.0 RBC 4.58 Hgb 14.2 Hct 42.9 MCV 94 MCH 31.0 MCHC 33.1 RDW 15.5 H Plt Count 136 L Seg Neutrophils % 45.9 Lymphocytes % 39.4 Monocytes % 10.8 Eosinophils % 3.0 Basophils % 0.9 Absolute Neutrophils 2.8 Absolute Lymphocytes 2.4 Absolute Monocytes 0.7 Absolute Eosinophils 0.2 Absolute Basophils 0.1 Sodium 143.0 Potassium 4.1 Chloride 109 H Carbon Dioxide 30 Anion Gap 4 L BUN 27 H Creatinine 1.34 H Est GFR ( Amer) > 60 Est GFR (Non-Af Amer) 51 L Glucose 81 Calcium 9.6 Troponin I 0.065 Chest X-Ray 06/09/18 06:36 IMPRESSION: No significant change. - Vital Signs Vital signs: Temp Pulse Resp BP Pulse Ox 97.8 F 43 L 19 117/102 H 98 06/09/18 06:09 06/09/18 06:09 06/09/18 06:46 06/09/18 06:46 06/09/18 06:46 - Laboratory Result Diagrams: 06/09/18 06:36 06/09/18 07:20 Laboratory results interpreted by me: 06/09/18 06/09/18 06:36 07:20 RDW 15.5 H Plt Count 136 L Chloride 109 H Anion Gap 4 L BUN 27 H Creatinine 1.34 H Est GFR (Non-Af Amer) 51 L - EKG Interpretation by Me Additional EKG results interpreted by me: 06/09/18 07:05 0619: Atrial sensed ventricularly paced rhythm, frequent ectopy, rate 68 Discharge - Discharge Clinical Impression: Elevated troponin, Shortness of breath, COPD exacerbation Condition: Stable Disposition: ADMITTED OBSERVATION Admitting Provider: Hospitalist Unit Admitted: Telemetry Referrals: SHARATH ALVAREZ MD [Primary Care Provider] - Follow up as needed
--- NOTE | 2018-06-09 07:07 | RADIOLOGY REPORT (SQ) ---
EXAM DESCRIPTION: XR CHEST 1 VIEW COMPLETED DATE/TME: 06/09/2018 06:36 CLINICAL HISTORY: 82 years Male, SOB COMPARISON: 1.20.18 NUMBER OF VIEWS/TECHNIQUE: 1/AP FINDINGS: Increased lung volume, moderately enlarged cardiac silhouette, atherosclerosis, left cardiac stimulator with leads. No pneumothorax. Stable bony thorax. IMPRESSION: No significant change.
[2018-06-09] MEDS ORDERED: ASPIRIN 81 MG TABLET, CHEWABLE PO ONE (08:08)
[2018-06-09 08:10] LABS: BLOOD UREA NITROGEN 27 mg/dL (7-20); CALCIUM 9.6 mg/dL (8.4-10.2); CARBON DIOXIDE 30 mmol/L (22-30); CHLORIDE 109 mmol/L (98-107); GLUCOSE 81 mg/dL (75-110); POTASSIUM 4.1 mmol/L (3.6-5.0)
[2018-06-09 08:18] LABS: ANION GAP 4 (5-19)
[2018-06-09] MEDS ORDERED: ACETAMINOPHEN 325 MG TABLET PO PRN (10:40)
--- NOTE | 2018-06-09 11:07 | PDOC H&P ---
History of Present Illness Admission Date/PCP: 06/09/18 09:30 SHARATH ALVAREZ MD Patient complains of: Shortness of breath History of Present Illness: ABIGAIL BOUDREAUX is a 82 year old male with a known cardiomyopathy and ejection fraction of approximately 25-30%. Patient had an pacemaker defibrillator placed in January of this year. Over the past week he had decreased his Lasix as he felt he was getting too dry and then he stopped it for 3-day. Became increasingly short of breath and took his Lasix this morning. He presents to the emergency room his chest x-ray does not show overt CHF he was short of breath but not hypoxemic. He had increasing edema in the lower extremity. 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 A request for admission to trend his troponins and treat his congestive heart failure was requested. Past Medical History Cardiac Medical History: Reports: Congestive Heart Failure, Hyperlipidema, Hypertension Denies: Myocardial Infarction Pulmonary Medical History: Reports: Chronic Obstructive Pulmonary Disease (COPD) Endocrine Medical History: Reports: Diabetes Mellitus Type 2, Hyperthyroidism Psychiatric Medical History: Denies: Attention Deficit Hyperactivity Disorder, Bipolar Disorder, Dementia , Depression Hematology: Denies: Anemia, Sickle Cell Disease Past Surgical History Past Surgical History: Reports: Appendectomy, Orthopedic Surgery - Cervical spine fusion, Pacemaker - Pacemaker defibrillator January 2018 Social History Smoking Status: Current Every Day Smoker Cigarettes Packs Per Day: 0.2 - 2-3 cigarettes a day Hx Recreational Drug Use: No Drugs: None Family History Family History: Reviewed & Not Pertinent, Hypertension Parental Family History Reviewed: Yes Children Family History Reviewed: Yes Sibling(s) Family History Reviewed.: Yes Medication/Allergy Allergies/Adverse Reactions: No Known Allergies Allergy (Verified 10/02/17 06:53) Review of Systems Constitutional: ABSENT: chills, fever(s), headache(s), weight gain, weight loss Eyes: ABSENT: visual disturbances Cardiovascular: PRESENT: dyspnea on exertion, edema. ABSENT: as per HPI Respiratory: PRESENT: dyspnea Gastrointestinal: ABSENT: abdominal pain, constipation, diarrhea, hematemesis, hematochezia, nausea, vomiting Musculoskeletal: ABSENT: joint swelling Neurological: ABSENT: abnormal gait, abnormal speech, confusion, dizziness, focal weakness, syncope Psychiatric: ABSENT: anxiety, depression, homidical ideation, suicidal ideation Endocrine: ABSENT: cold intolerance, heat intolerance, polydipsia, polyuria Hematologic/Lymphatic: ABSENT: easy bleeding, easy bruising Physical Exam Vital Signs: Temp Pulse Resp BP Pulse Ox 97.8 F 43 L 19 117/102 H 98 06/09/18 06:09 06/09/18 06:09 06/09/18 06:46 06/09/18 06:46 06/09/18 06:46 General appearance: PRESENT: no acute distress, well-developed, well-nourished Eye exam: PRESENT: conjunctiva pink, EOMI, PERRLA. ABSENT: scleral icterus Neck exam: PRESENT: JVD. ABSENT: carotid bruit, lymphadenopathy, thyromegaly Respiratory exam: PRESENT: clear to auscultation christin, rales - Exterior inferior. ABSENT: rhonchi, wheezes Cardiovascular exam: PRESENT: RRR. ABSENT: diastolic murmur, rubs, systolic murmur GI/Abdominal exam: PRESENT: normal bowel sounds, soft. ABSENT: distended, guarding, mass, organolmegaly, rebound, tenderness Extremities exam: PRESENT: full ROM. ABSENT: calf tenderness, clubbing, pedal edema Neurological exam: PRESENT: alert, awake, oriented to person, oriented to place , oriented to time, oriented to situation, CN II-XII grossly intact. ABSENT: motor sensory deficit Psychiatric exam: PRESENT: appropriate affect, normal mood. ABSENT: homicidal ideation, suicidal ideation Skin exam: PRESENT: dry, intact, warm. ABSENT: cyanosis, rash Results Impressions: Chest X-Ray 06/09/18 06:36 IMPRESSION: No significant change. Assessment & Plan - Diagnosis (1) Acute on chronic systolic (congestive) heart failure Is this a current diagnosis for this admission?: Yes Plan: Patient with known cardiomyopathy. No echocardiogram in our system. He normally is treated at [facility]. Dr. Rouse is his drawing press operator locally. Will obtain echocardiogram. Counseled patient on compliance with his medical regimen. Will give Lasix IV 40 mg every 12 hours check BMP which was not done in the emergency room. Patient's presentation is that of exacerbation of his chronic congestive heart failure due to stopping his diuretic. 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 (4) COPD exacerbation Is this a current diagnosis for this admission?: Yes Plan: Nebulizing treatments no audible wheezing at this time he is not hypoxemic. (5) Elevated troponin Is this a current diagnosis for this admission?: Yes Plan: Troponin of 0.6 historically in September of this year patient had sequential 0.6 troponins and I suspect he has a chronic troponin anemia and this is not anginal or an STEMI. Will trend troponins (6) Diabetes Qualifiers: Diabetes mellitus type: type 2 Diabetes mellitus superintendent terminal insulin use: with superintendent terminal use Is this a current diagnosis for this admission?: Yes Plan: Continue patient's 7030 NovoLog patient uses 20-26 units will dose at 20 with sliding scale coverage as well. Hemoglobin A1c. - Time Time Spent: 50 to 70 Minutes Anticipated discharge: Home Within: within 48 hours - Inpatient Certification Based on my medical assessment, after consideration of the patient's comorbidities, presenting symptoms, or acuity I expect that the services needed warrant INPATIENT care.: Yes I certify that my determination is in accordance with my understanding of Medicare's requirements for reasonable and necessary INPATIENT services [42 CFR 412.3e].: Yes Medical Necessity: Need Close Monitoring Due to Risk of Patient Decompensation, Need For Continuous Telemetry Monitoring
[2018-06-09] MEDS ORDERED: DEXTROSE 50%-WATER 25 GM/50 ML DISP.SYRIN IV PRN ×2 (11:08)
[2018-06-09] MEDS ORDERED: GLUCAGON,HUMAN RECOMB 1 MG INJ IM PRN (11:08)
[2018-06-09] MEDS ORDERED: DEXTROSE 40% GEL 15 GM TUBE PO PRN ×2 (11:08)
[2018-06-09 11:22] LABS: PHOSPHORUS 4.1 mg/dL (2.5-4.5)
[2018-06-09] MEDS: IPRATROPIUM/ALBUTEROL 0.5-2.5 MG/3 ML AMPUL NEB PRN (11:23)
[2018-06-09] MEDS: FUROSEMIDE INJ/PF 40 MG/4 ML SDV IV SCH ×2 (13:04→21:26)
[2018-06-09] MEDS: INSULIN REG, HUMAN 100 UNIT/ML 3 ML VIAL (PYX) SUBCUT PRN ×2 (16:33→21:26)
[2018-06-09] MEDS: LANSOPRAZOLE 30 MG TAB.RAP.DR PO SCH (16:33)
[2018-06-09] MEDS: ENOXAPARIN SODIUM INJ 40 MG/0.4 ML DISP.SYRIN SUBCUT SCH (16:36)
--- NOTE | 2018-06-09 21:02 | EKG REPORT ---
SEVERITY:- ABNORMAL ECG - ATRIAL-SENSED VENTRICULAR-PACED COMPLEXES : Confirmed by: Kathy Sullivan MD 09-Jun-2018 21:02:14
[2018-06-09] MEDS: CARVEDILOL 3.125 MG TABLET PO SCH (21:27)
[2018-06-09] MEDS ORDERED: FUROSEMIDE INJ/PF 100 MG/10 ML SDV IV SCH (22:00)
[2018-06-09] MEDS ORDERED: (PENDING PHARMACY ID) (Insulin Aspart Protam & Aspart [Novolog Mix 70-30 Vial] 20 UNIT) SQ SCH (22:00)
[2018-06-10 06:09] LABS: ANION GAP 7 (5-19); BLOOD UREA NITROGEN 42 mg/dL (7-20); CALCIUM 9.1 mg/dL (8.4-10.2); CARBON DIOXIDE 29 mmol/L (22-30); CHLORIDE 102 mmol/L (98-107); GLUCOSE 342 mg/dL (75-110); POTASSIUM 4.3 mmol/L (3.6-5.0); SODIUM 137.9 mmol/L (137-145)
[2018-06-10] MEDS: LANSOPRAZOLE 30 MG TAB.RAP.DR PO SCH (06:24)
[2018-06-10 08:11] VITALS: BP 138/78
[2018-06-10] MEDS: IPRATROPIUM/ALBUTEROL 0.5-2.5 MG/3 ML AMPUL NEB PRN (08:45)
[2018-06-10] MEDS: CARVEDILOL 3.125 MG TABLET PO SCH (09:42)
[2018-06-10] MEDS: FUROSEMIDE INJ/PF 40 MG/4 ML SDV IV SCH ×2 (09:42→12:26)
[2018-06-10] MEDS: ENOXAPARIN SODIUM INJ 40 MG/0.4 ML DISP.SYRIN SUBCUT SCH ×2 (09:43→12:26)
[2018-06-10] MEDS: INSULIN REG, HUMAN 100 UNIT/ML 3 ML VIAL (PYX) SUBCUT PRN (09:47)
[2018-06-10] MEDS ORDERED: ASPIRIN 81 MG TABLET, ENT COATED PO SCH (10:00)
[2018-06-10] MEDS ORDERED: POTASSIUM CHLORIDE 10 MEQ CAPSULE.ER PO SCH (10:00)
[2018-06-10] MEDS ORDERED: METHIMAZOLE 5 MG TABLET PO SCH (10:00)
--- NOTE | 2018-06-10 10:33 | PDOC DISCHARGE SUMMARY ---
General - Admit/Disc Date/PCP Admission Date/Primary Care Provider: 06/09/18 09:30 SHARATH ALVAREZ MD Discharge Date: 06/10/18 - Discharge Diagnosis (1) Acute on chronic systolic (congestive) heart failure Is this a current diagnosis for this admission?: Yes (2) Hyperthyroidism Is this a current diagnosis for this admission?: Yes (3) Coronary artery disease Is this a current diagnosis for this admission?: Yes (4) COPD exacerbation Is this a current diagnosis for this admission?: Yes (5) Elevated troponin Is this a current diagnosis for this admission?: Yes (6) Diabetes Is this a current diagnosis for this admission?: Yes - Additional Information Discharge Diet: Cardiac, Diabetic Discharge Activity: Activity As Tolerated Prescriptions: Furosemide [Lasix 40 mg Tablet] 40 mg PO QAM #30 tablet Lisinopril 5 mg PO DAILY #30 tablet Home Medications: Carvedilol [Coreg 3.125 mg Tablet] 3.125 mg PO Q12 06/09/18 Fluticasone Propionate [Flonase Nasal Emerson 50 Mcg/Emerson 16 gm] 1 spray NASL BID 06/09/18 Insulin Aspart Protam & Aspart [Novolog Mix 70-30 Vial] 26 units SQ BID Methimazole [Tapazole 5 mg Tablet] 2.5 mg PO DAILY 06/09/18 Omeprazole 40 mg PO ACBRKFST 06/09/18 Oxycodone HCl/Acetaminophen [Endocet 7.5-325 mg Tablet] 1 tab PO Q6HP PRN Polyethylene Glycol 3350 [Miralax Powder 17 gm/Packet] 17 gm PO DAILY 06/09/18 Pravastatin Sodium [Pravachol] 20 mg PO DAILY 06/09/18 Ranitidine HCl [Zantac 150 mg Tablet] 150 mg PO QHS 06/09/18 Aspirin [Ecotrin 81 mg EC Tablet] 81 mg PO DAILY tabec 06/10/18 Furosemide [Lasix 40 mg Tablet] 40 mg PO QAM #30 tablet 06/10/18 Lisinopril 5 mg PO DAILY #30 tablet 06/10/18 History of Present Illness History of Present Illness: ABIGAIL BOUDREAUX is a 82 year old male with a known cardiomyopathy and ejection fraction of approximately 25-30%. Patient had an pacemaker defibrillator placed in January of this year. Over the past week he had decreased his Lasix as he felt he was getting too dry and then he stopped it for 3-day. Became increasingly short of breath and took his Lasix this morning. He presents to the emergency room his chest x-ray does not show overt CHF he was short of breath but not hypoxemic. He had increasing edema in the lower extremity. 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 A request for admission to trend his troponins and treat his congestive heart failure was requested. Hospital Course Hospital Course: Patient had stopped his Lasix causing him to develop mild congestive heart failure. He is admitted to the floor and placed on IV Lasix 40 mg every 12 hours. The following morning his troponins had decreased to 0.3-0.4 range. His BUN increased to 42 his edema improved and he was back to his baseline and requesting discharge. As he did not require oxygen it was felt that he improved rapidly with the diuretics and he was subsequently discharged. Reviewing his home medications he did not list and BALTAZAR inhibitor as there was no concentrate indication lisinopril 5 mg was added to his carvedilol. He was placed on furosemide which also was not on his med rec but he said that he takes at home on a daily basis and the hydrochlorothiazide listed on the med rec was discontinued and he is to continue with the furosemide. He is to follow -up with his primary care physician in 7-10 days he was counseled on daily weights and instructed to call his primary care physician should he gain more than 3-5 pounds. Physical Exam Vital Signs: Temp Pulse Resp BP Pulse Ox 97.4 F 71 14 138/78 H 97 06/10/18 07:52 06/10/18 08:53 06/10/18 08:53 06/10/18 08:11 06/10/18 08:53 Intake & Output 06/09/18 06/10/18 06/11/18 06:59 06:59 06:59 Intake Total 300 Balance 300 Weight 79.1 kg General appearance: PRESENT: no acute distress, well-developed, well-nourished Neck exam: ABSENT: carotid bruit, JVD, lymphadenopathy, thyromegaly Respiratory exam: PRESENT: clear to auscultation christin. ABSENT: rales, rhonchi, wheezes Cardiovascular exam: PRESENT: RRR. ABSENT: diastolic murmur, rubs, systolic murmur GI/Abdominal exam: PRESENT: normal bowel sounds, soft. ABSENT: distended, guarding, mass, organolmegaly, rebound, tenderness Extremities exam: PRESENT: full ROM, +1 edema. ABSENT: calf tenderness, clubbing, pedal edema Results Laboratory Results: 06/10/18 05:37 06/10/18 05:37 Sodium 137.9 Potassium 4.3 Chloride 102 Carbon Dioxide 29 Anion Gap 7 BUN 42 H Creatinine 1.50 H Est GFR ( Amer) 54 L Est GFR (Non-Af Amer) 45 L Glucose 342 H Calcium 9.1 06/09/18 06/09/18 06/10/18 12:52 18:15 00:33 Troponin I 0.046 0.037 0.045 Impressions: Chest X-Ray 06/09/18 06:36 IMPRESSION: No significant change. Qualifiers - * PATIENT BEING DISCHARGED WITH ANY OF THE FOLLOWING DIAGNOSIS: Heart Failure HF Pt being discharged on ACEI for LVEF less than 40%?: Yes HF Pt being discharged on ARBS for LVEF less than 40%?: No Reason(s) for not prescribing ARBS:: Medical Contraindication - On BALTAZAR inhibitor HF Pt with Afib discharged with Warfarin?: No Reason(s) for not prescribing Warfarin:: Medical Contraindication HF Pt discharged on evidence-based Beta Jennifer:: Yes Plan Time Spent: Greater than 30 Minutes
--- NOTE | 2018-06-10 14:43 | XCELERA REPORT ---
[address] [address] Transthoracic Echocardiogram Report Name: ABIGAIL BOUDREAUX Age: 82 yrs Gender: Male : 1935 Patient Status: Inpatient [address] Study Date: 06/09/2018 03:07 PM Height: 71 in Weight: 180 lb BSA: 2.0 m2 Procedure: A two-dimensional transthoracic echocardiogram with color flow and Doppler was performed. Study Quality: Fair. Reason For Study: Cardiomyopathy/CHF History: CHF. Ordering Physician: YAMILEX VILLELA Performed By: Dennise Wagoner Interpretation Summary The left ventricle is moderately to severly dilated. There is normal left ventricular wall thickness. LV EF is < than 25% Left ventricular systolic function is severely reduced. Doppler measurements suggest impaired left ventricular relaxation, which is associated with grade I/IV or mild diastolic dysfunction There is severe global hypokinesis of the left ventricle. There is no thrombus. The right ventricle is normal in size and function. Defib / PPM leads in RA and RV. The left atrial size is normal. There is no evidence of mitral valve prolapse. There is no vegetation seen on the mitral valve. There is no mitral valve stenosis. There is a moderate amount of mitral regurgitation There is no aortic valve stenosis There is no LVOT obstruction. There is aortic sclerosis without aortic stenosis. There is a trace amount of aortic regurgitation There is no tricuspid stenosis. There is a mild amount of tricuspid regurgitation RVSP is 53 mm of Hg , with RA mean of 10. There is moderate pulmonary hypertension by echo There is no pulmonic valvular stenosis. There is no pulmonic valvular regurgitation. Minimal pericardial effusion. There are no echocardiographic or Doppler indications for cardiac tamponade MMode/2D Measurements & Calculations RVDd: 2.3 cm LVIDd: 7.6 cm FS: 14.9 % Ao root diam: 3.0 cm IVSd: 1.1 cm LVIDs: 6.4 cm EDV(Teich): 304.6 ml Ao root area: 6.9 cm2 LVPWd: 1.1 cm ESV(Teich): 211.9 ml LA dimension: 4.0 cm EF(Teich): 30.4 % Doppler Measurements & Calculations MV E max jo: MV P1/2t max jo: Ao V2 max: LV V1 max P.0 cm/sec 78.0 cm/sec 146.6 cm/sec 5.0 mmHg MV A max jo: MV P1/2t: 53.3 msec Ao max P.6 mmHgLV V1 max: 123.4 cm/sec MVA(P1/2t): 4.1 cm2 111.6 cm/sec MV E/A: 0.63 MV dec slope: 428.8 cm/sec2 MV dec time: 0.20 sec PA V2 max: TR max jo: MV P1/2t-pr_phl: 87.4 cm/sec 327.1 cm/sec 53.3 msec PA max P.1 mmHgTR max P.8 mmHg Left Ventricle The left ventricle is moderately to severly dilated. There is normal left ventricular wall thickness. LV EF is < than 25%. Left ventricular systolic function is severely reduced. Doppler measurements suggest impaired left ventricular relaxation, which is associated with grade I/IV or mild diastolic dysfunction. There is severe global hypokinesis of the left ventricle. There is no thrombus. There is no ventricular septal defect visualized. Right Ventricle The right ventricle is normal in size and function. Defib / PPM leads in RA and RV. Atria The right atrium is normal. The left atrial size is normal. The interatrial septum is intact with no evidence for an atrial septal defect. Mitral Valve There is mild mitral annular calcification. There is no evidence of mitral valve prolapse. There is no vegetation seen on the mitral valve. There is no mitral valve stenosis. There is a moderate amount of mitral regurgitation. Aortic Valve There is no aortic valvular vegetation. There is no aortic valve stenosis. There is no LVOT obstruction. There is aortic sclerosis without aortic stenosis. There is a trace amount of aortic regurgitation. Tricuspid Valve There is no tricuspid stenosis. There is a mild amount of tricuspid regurgitation. RVSP is 53 mm of Hg , with RA mean of 10. There is moderate pulmonary hypertension by echo. Pulmonic Valve There is no pulmonic valvular stenosis. There is no pulmonic valvular regurgitation. Great Vessels The aortic root is normal size. Effusions Minimal pericardial effusion. There are no echocardiographic or Doppler indications for cardiac tamponade. : YAMILEX VILLELA > Kathy Sullivan
== END 2018-06-10 11:50 | disposition home or self-care (01) | DRG 292 ==
LOC: ER 06:09 → EH 09:30 → OBSVTOIN 09:30 → 5 19:55
PROVIDERS: ADMIT Family Medicine; ATTEND Family Medicine
PROC: 3E0F73Z Introduction of Anti-inflammatory into Respiratory Tract, Via Natural or Artificial Opening (ICD-10-PCS; principal; 2018-06-09)
DX: I11.0 Hypertensive heart disease with heart failure (principal); J44.1 Chronic obstructive pulmonary disease with (acute) exacerbation; I50.23 Acute on chronic systolic (congestive) heart failure; E11.9 Type 2 diabetes mellitus without complications; E05.90 Thyrotoxicosis, unspecified without thyrotoxic crisis or storm; I25.10 Atherosclerotic heart disease of native coronary artery without angina pectoris; R74.8 Abnormal levels of other serum enzymes; I42.9 Cardiomyopathy, unspecified; E78.00 Pure hypercholesterolemia, unspecified; F17.210 Nicotine dependence, cigarettes, uncomplicated; Z79.899 Other long term (current) drug therapy; Z95.0 Presence of cardiac pacemaker; Z82.49 Family history of ischemic heart disease and other diseases of the circulatory system; Z85.46 Personal history of malignant neoplasm of prostate
CPT/HCPCS: 36415; 71045; 80048; 82962; 83036; 83735; 83880; 84100; 84443; 84484; 85025; 93005; 93010; 93306; 94640; 96372; 96374; 96375; 99285; J1650; J1815; J1940; J2930; J7620

== ENCOUNTER → 2018-10-10 | Outpatient (CLI) | payer MEDICARE, OTHER ==
--- NOTE | 2018-10-10 09:06 | RADIOLOGY REPORT (SQ) ---
EXAM DESCRIPTION: YASMINE SWALLOW COMPLETED DATE/TIME: 10/10/2018 8:33 am REASON FOR STUDY: ASPIRATION T17.908A UNSP FB IN RESP TRACT, PART UNSP CAUSING OTH INJURY COMPARISON: None. TECHNIQUE: Videofluoroscopic swallowing examination was performed in conjunction with speech patholo gy. Videofluoroscopic imaging was obtained and reviewed and these are the findings: RADIATION DOSE: Fluoro time 2.12 minutes 1 images saved to PACS. LIMITATIONS: None FINDINGS: The patient was brought into the fluoro room and placed upright on a modified barium swall ow chair. The patient was then given multiple consistencies mixed with barium to swallow under live fluoroscopic video guidance. According to the Speech Pathologist there was no penetration or aspirat ion. A small amount of hang up is seen in the upper esophagus in what appears to be a tiny Zenker's diverticulum. Please refer to the speech pathology report for further details. IMPRESSION: NO EVIDENCE OF PENETRATION OR ASPIRATION. 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 COMMENT: NONE Quality ID [id number]: Final reports for procedures using fluoroscopy that document radiation exposure nathan zenon, or exposure time and number of fluorographic images (if radiation exposure indices are not avail able) TECHNICAL DOCUMENTATION: JOB ID: [id number] [employer]- All Rights Reserved Reading location - IP/workstation name: [email or web address]
--- NOTE | 2018-10-10 09:41 | ST Modified Barium Swallow ---
Recommendation - Recommendations Recommendations: Recommend no diet changes, alternating solids and liquids and chin tuck to reduce residue. Recommend short course of dysphagia therapy to train patient in exercises and strategies. Medical Diagnoses - Medical Diagnoses Medical Diagnosis Description & ICD-10 Code(s): aspiration T17.908, dysphagia R13.10 Other Medical Diagnoses/Co-Morbidities: Patient reports reflux, COPD, heart problems. - ICD-10 Tx Diagnosis Coding (1) Aspiration into airway ICD-10 Code(s): T17.908A - UNSP FB IN RESP TRACT, PART UNSP CAUSING OTH INJURY, INIT (2) Dysphagia ICD-10 Code(s): R13.10 - DYSPHAGIA, UNSPECIFIED ST Modified Barium Swallow - General Date: 10/10/18 Referring Physician: Dr. Shady Reece Risks/Precautions: Falls, Aspiration Date of Onset: 07/13/17 - approximate onset date Reason for Referral: difficulty swallowing - History History obtained from: Patient -: Medical - Patient reports difficulty with swallowing, predominately solids, for "several months". No pneumonias reported. Patient also had an MBSS on 09/22/17, at that study he stated he had been having trouble for 2 months. His prior MBSS revealed moderate valleculae residue and mild pyriform residue, which cleared with liquid wash. Calcification of structures also seen. Medications: per patient provided list: novolog, ranitidine, furosomide, acetaminophen, carveailol, pravastatin, methimazole, omeprazole, primidone. Allergies: none reported. - Functional Status Prior Functional Status: INDEPENDENT: feeding - independent Current Functional Limitations: feeding - globus - Subjective Patient/caregiver goal(s): better swallow Cognitive-Linguistic Function: WNL Speech Intelligibility: WNL Current Nutritional Means: PO Current PO diet: Regular Current symptoms: Coughing, c/o Globus sensation Pain: Patient reports, 0/5 - Objective Assessment: Upright, Left Lateral - Food Trials Used Food trials used: Thin liquids, Pureed, Regular The patient: Was Able to Self Feed - Oral-Motor Skills Dentition: Dentures-Upper Velo-pharyngeal function: Unremarkable Laryngeal Function: clear voicing - Assessment Oral prep: Normal Labial closure: Adequate Leakage: None Mastication: Adequate Lingual Movement: Normal Oral stage: Normal for this Procedure - Pharyngeal Stage Initiation of Pharyngeal Stage Reflex: Normal Decreased laryngeal elevation: Yes - mild Reduced Velopharyngeal Closure: no Reduced pressure generation: Yes reduced tongue-based retraction: No Pre-swallow pooling in valleculae: None Pre-Swallow pooling in pyriforms: None Reduced Thyro-Hyoid approximation: Yes - mild Reduced epiglottic excursion: Yes - mild Reduced pharyngeal peristalsis/contraction: No Multiple Swallows with: Cleared w/ Liquid Assist Post-swallow residulas vallecular: Moderate Post-Swallow residuals in pyriforms: Mild - Esophageal Stage Cervical Osteophytes noted: Yes - approximately C4-6 Esophageal Stage: Possible early Zenker's divirticulum noted in upper esophagus, approximately at the level of C7-8, resulting in retention of some food trials. Cleared with liquid wash. - Fall Risk Assessment Medications/Conditions that increase fall risks include: Antidepressants, sedatives, anti-arrhythmic, diuretic, benzodiazipenes, neuroleptics. BP regulation problems, cardiac problems, balance or gait deficits, neurological problems. Is patient considered at risk for falls: no Fall Risk Actions Taken: No action needed - patient independent with assistive device - Behavioral Observations During evaluation process patient: was pleasant, was cooperative, able to answer questions - Treatment / Educational Needs: Treatment/Education Needs: Treatment consisted of patient education on the role of the Speech Pathologist. Patient's plan of care and golas were communicated as well as scheduling and attendance policies. Recommendations for initial home program were shared. Patient demonstrated understanding and verbalized agreement. Initial home program recommendations: Recommended alternating bites and sips to reduce residue. Also recommended chin tuck with solids to reduce residue in valleculae. - Impression/Summary Laryngeal Penetration: No Tracheal Aspiration: no Effective compensatory strategies: chin down Patient presents with: Pharyngeal stage dysph., Mild-Moderate Risk of Aspiration: Minimal Risk of nutritional compromise: None Evaluation and Findings: Moderate pharyngeal phase dysphagia seen without aspiration or penetration. Calcification of stylohyoid ligament seen, as well as calcification of hyoid bone and larynx. Mildly reduced epiglottic inversion and hyolaryngeal excursion seen, resulting in residue of solids in valleculae and pyriform sinus. Chin tuck and liquid wash helped resolve residue. Swallowing deficits appear to be slightly worse than in the patient's previous swallow study. Recommend short course of dysphagia treatment to train patient in exercises and strategies. - Recommendations NPO: no Solid diet recommendations: Regular Liquid Diet Modification: Thin Strict aspiration precautions: Yes Pt/Family education and followup with MD: Yes Dysphagia therapy with ROUSTABOUT HAND: yes - patient reports he has an appointment scheduled. Recommended techniques: Fully Upright During Meal, Alternate Bites/Sips, Chin Tuck to Swallow Information, Precautions and Recommendations: Patient (Written), Patient (Verbal) - Time Total Time: 25 - Plan of Care Patient to follow-up with referring physician: Yes Rehab potential for established goals: Good - goals to be established in clinical setting. POC Procedures/Codes: pharyngeal exercises, pt/family education, MBSS (68811) Strategies to optimize patient understanding include:: ongoing assessment of educational needs, implementation of educational strategies, and re-education. - - -: Thank you for the opportunity to work with this patient and his/her family. Should you have any questions about this patient's plan or progress, I can be reached at [phone]. [facility] Impairment Category - Swallowing Current G8996: CI 1-19% Impaired Goal G8997: CI 1-19% Impaired Discharge G8998: CI 1-19% Impaired
== END ==
LOC: RAD 07:46
PROVIDERS: ATTEND Otolaryngology
DX: T17.908A Unspecified foreign body in respiratory tract, part unspecified causing other injury, initial encounter (principal); R13.10 Dysphagia, unspecified; X58.XXXA Exposure to other specified factors, initial encounter
CPT/HCPCS: 74230

== ENCOUNTER 2018-11-12 19:37 | Emergency (ER) | payer MEDICARE, OTHER ==
[2018-11-12] MEDS ORDERED: ONDANSETRON HCL INJ/PF 4 MG/2 ML SDV IV ONE (20:49)
[2018-11-12] MEDS ORDERED: NORMAL SALINE 1000 ML 1,000 ML IV ONE (20:49)
--- NOTE | 2018-11-12 20:51 | ER Document Report ---
ED General - General Chief Complaint: Nausea/Vomiting Stated Complaint: VOMITING Time Seen by Provider: 11/12/18 19:55 Primary Care Provider: ISAÍAS NAVA MD [NO LOCAL MD] - Follow up in 3-5 days Notes: Patient is an 82-year-old male with a past medical history of hypertension prostate cancer, diabetes, hyperlipidemia, presents complaining of 2 days of nausea, burping and vomiting. Patient states that he continues to feel queasy today. He has not actually vomited today but states that he came to the emerge ncy department because "I was tired of feeling so queasy all the time". States that his symptoms started gradually over the last several days and have been ongoing since that time. Nothing seems to improve or worsen his symptoms. He has tried Tums with no significant relief. Patient is uncertain of whether or not he has had similar symptoms in the past. He has not seen his primary care physician regarding today's concerns. He denies any diarrhea, chest pain, shortness of breath, fever or constitutional symptoms. TRAVEL OUTSIDE OF THE [place] IN LAST 30 DAYS: No - Related Data Allergies/Adverse Reactions: No Known Allergies Allergy (Verified 10/02/17 06:53) Past Medical History - General Information source: Patient - Social History Smoking Status: Current Some Day Smoker Frequency of alcohol use: None Drug Abuse: None Lives with: Spouse/Significant other Family History: Reviewed & Not Pertinent, Hypertension Patient has suicidal ideation: No Patient has homicidal ideation: No - Past Medical History Cardiac Medical History: Reports: Hx Congestive Heart Failure, Hx Hypercholesterolemia, Hx Hypertension Denies: Hx Heart Attack Pulmonary Medical History: Reports: Hx COPD Endocrine Medical History: Reports: Hx Diabetes Mellitus Type 2, Hx Hyperthyroidism Renal/ Medical History: Denies: Hx Peritoneal Dialysis Psychiatric Medical History: Denies: Hx Attention Deficit Hyperactivity Disorder, Hx Bipolar Disorder, Hx Dementia, Hx Depression Past Surgical History: Reports: Hx Appendectomy, Hx Genitourinary Surgery - prostate ca surgery, Hx Orthopedic Surgery - Cervical spine fusion, Hx Pacemaker - Pacemaker defibrillator January 2018 - Immunizations Hx Diphtheria, Pertussis, Tetanus Vaccination: Yes Review of Systems - Review of Systems Notes: Constitutional: Negative for fever. HENT: Negative for sore throat. Eyes: Negative for visual changes. Cardiovascular: Negative for chest pain. Respiratory: Negative for shortness of breath. Gastrointestinal: Negative for abdominal pain, positive for nausea and vomiting Genitourinary: Negative for dysuria. Musculoskeletal: Negative for back pain. Skin: Negative for rash. Neurological: Negative for headaches, weakness or numbness. 10 point ROS negative except as marked above and in HPI. Physical Exam - Vital signs Vitals: Temp Pulse Resp BP Pulse Ox 97.9 F 63 20 112/71 99 11/12/18 19:43 11/12/18 19:43 11/12/18 19:43 11/12/18 19:43 11/12/18 19:43 Interpretation: Normal Notes: PHYSICAL EXAMINATION: GENERAL: Well-appearing, well-nourished and in no acute distress. HEAD: Atraumatic, normocephalic. EYES: Pupils equal round and reactive to light, extraocular movements intact, sclera anicteric, conjunctiva are normal. ENT: nares patent, oropharynx clear without exudates. Moist mucous membranes. NECK: Normal range of motion, supple without lymphadenopathy LUNGS: Breath sounds clear to auscultation bilaterally and equal. No wheezes rales or rhonchi. HEART: Regular rate and rhythm without murmurs ABDOMEN: Soft, nontender, normoactive bowel sounds. No guarding, no rebound. No masses appreciated. EXTREMITIES: Normal range of motion, no pitting or edema. No cyanosis. NEUROLOGICAL: No focal neurological deficits. Moves all extremities spontaneously and on command. PSYCH: Normal mood, normal affect. SKIN: Warm, Dry, normal turgor, no rashes or lesions noted. Course - Re-evaluation Re-evalutation: 11/12/18 20:50 Patient presents with 2 days of isolated vomiting, nonbilious in nature, having normal bowel movements. Patient denies any abdominal pain but does states that he feels queasy or nauseous. does note that the patient has had significant weight loss in the past several weeks almost 10 pounds. On exam patient has no focal abdominal tenderness, rebound or guarding. Otherwise looks quite well. Vitals within acceptable limits. Will proceed with labs, CT abdomen pelvis reassess. 11/12/18 23:23 Patient's abdominal exam remains benign. No further vomiting. CT the abdomen pelvis reveals only inflammation of the stomach consistent with a gastritis type picture which would fit with patient's complaints of nausea and vomiting. Patient be started on famotidine, Carafate. At this time will discharge with return precautions and follow-up recommendations. Verbal discharge instructions given a the bedside and opportunity for questions given. Medication warnings reviewed. Patient is in agreement with this plan and has verbalized understanding of return precautions and the need for primary care follow-up in the next 24-72 hours. - Vital Signs Vital signs: Temp Pulse Resp BP Pulse Ox 97.9 F 63 13 128/68 H 92 11/12/18 19:43 11/12/18 19:43 11/12/18 23:03 11/12/18 23:03 11/12/18 23:03 - Laboratory Result Diagrams: 11/12/18 20:45 11/12/18 20:45 Laboratory results interpreted by me: 11/12/18 11/12/18 11/12/18 20:31 20:45 20:45 Hgb 13.4 L RDW 15.9 H Carbon Dioxide 31 H BUN 34 H Creatinine 1.53 H Est GFR ( Amer) 53 L Est GFR (Non-Af Amer) 44 L Glucose 74 L Urine Protein 30 H Urine Ascorbic Acid 40 H - Diagnostic Test Radiology reviewed: Reports reviewed Discharge - Discharge Clinical Impression: Nausea and vomiting Qualifiers: Vomiting type: unspecified Vomiting Intractability: non-intractable Qualified Code(s): R11.2 - Nausea with vomiting, unspecified Gastritis Qualifiers: Gastritis type: unspecified gastritis Chronicity: acute Gastritis bleeding: presence of bleeding unspecified Qualified Code(s): K29.00 - Acute gastritis without bleeding Condition: Good Disposition: HOME, SELF-CARE Additional Instructions: Your symptoms appear to be most consistent with stomach or upper intestinal irritation. Please begin taking famotidine 40 mg in the morning and 40 mg at night. Take Carafate prior to meals. You may also take medicine such as Pepto- Bismol or Tums to assist with your pain. Please return to emergency department immediately if you have worsening of your pain, shortness of breath, vomiting, become unable to exert yourself due to pain or difficulty breathing, you pass out, or have any pain that radiates into your arms, jaw, or back. Please also return if you have any additional symptoms that are concerning to you. As we have discussed, the most important thing is lifestyle changes. You need to avoid smoking, sodas, tea, coffee, alcohol, spicy foods, and acidic foods such as citrus fruits, tomato based products, berries, and most fruit juices. Prescriptions: Famotidine 40 mg PO BID #60 tablet Sucralfate [Carafate 1 gm Tablet] 1 gm PO ACHS #120 tablet Referrals: ISAÍAS NAVA MD [NO LOCAL MD] - Follow up in 3-5 days
[2018-11-12 20:54] LABS: APPEARANCE,URINE CLEAR; BILIRUBIN,URINE NEGATIVE (NEGATIVE); COLOR,URINE YELLOW; GLUCOSE, URINE NEGATIVE (NEGATIVE); KETONES,URINE NEGATIVE (NEGATIVE); LEUKOCYTE ESTERASE,URINE NEGATIVE (NEGATIVE); NITRITE,URINE NEGATIVE (NEGATIVE); PROTEIN,URINE 30 mg/dL (NEGATIVE); URINE SPECIFIC GRAVITY 1.011; UROBILINOGEN,URINE NEGATIVE mg/dL (<2.0)
[2018-11-12 20:59] LABS: ABSOLUTE EOSINOPHILS # (AUTO) 0.2 10^3/uL (0.0-0.6); ABSOLUTE LYMPHOCYTES (AUTO) 1.8 10^3/uL (0.5-4.7); ABSOLUTE MONOCYTES (AUTO) 0.7 10^3/uL (0.1-1.4); ABSOLUTE NEUT (AUTO) 3.1 10^3/uL (1.7-8.2); BASOPHILS % (AUTO) 0.7 % (0-2); EOSINOPHILS % (AUTO) 3.1 % (0-6); HEMATOCRIT 39.9 % (37.9-51.0); HEMOGLOBIN 13.4 g/dL (13.5-17.0); LYMPHOCYTES % (AUTO) 31.6 % (13-45); MEAN CORPUSCULAR HEMOGLOBIN 29.3 pg (27.0-33.4); MEAN CORPUSCULAR HGB CONC 33.7 g/dL (32.0-36.0); MEAN CORPUSCULAR VOLUME 87 fl (80-97); MONOCYTES % (AUTO) 11.3 % (3-13); PLATELET COUNT 151 10^3/uL (150-450); RED BLOOD COUNT 4.59 10^6/uL (4.35-5.55); RED CELL DISTRIBUTION WIDTH 15.9 % (11.5-14.0); SEGMENTED NEUTROPHILS % (AUTO) 53.3 % (42-78); TOTAL CELLS COUNTED % (AUTO) 100 %; WHITE BLOOD COUNT 5.8 10^3/uL (4.0-10.5)
[2018-11-12 21:16] LABS: ALANINE AMINOTRANSFERASE 30 U/L (21-72); ALBUMIN 3.6 g/dL (3.5-5.0); ALKALINE PHOSPHATASE 73 U/L (38-126); ANION GAP 7 (5-19); ASPARTATE AMINO TRANSFERASE 29 U/L (17-59); BILIRUBIN,DIRECT 0.1 mg/dL (0.0-0.4); BILIRUBIN,TOTAL 0.5 mg/dL (0.2-1.3); BLOOD UREA NITROGEN 34 mg/dL (7-20); CALCIUM 9.6 mg/dL (8.4-10.2); CARBON DIOXIDE 31 mmol/L (22-30); CHLORIDE 105 mmol/L (98-107); GLUCOSE 74 mg/dL (75-110); LIPASE 28.6 U/L (23-300); POTASSIUM 4.1 mmol/L (3.6-5.0); SODIUM 142.8 mmol/L (137-145); TOTAL PROTEIN 6.4 g/dL (6.3-8.2)
--- NOTE | 2018-11-12 22:53 | RADIOLOGY REPORT (SQ) ---
EXAM DESCRIPTION: CT ABDOMEN PELVIS WITH IV CONTRAST COMPLETED DATE/TME: 11/12/2018 20:49 CLINICAL HISTORY: 82 years, Male, weight loss, n/v COMPARISON: None. TECHNIQUE: Axial images of the abdomen and pelvis were performed utilizing intravenous contrast, with sagittal and coronal reformatted images. Images stored on PACS. All CT scanners at this facility use dose modulation, iterative reconstruction, and/or weight based dosing when appropriate to reduce radiation dose to as low as reasonably achievable (ALARA). [facility]: Dose Right [facility]: CareDose [facility]: Dose Right [facility]: Teradose 4D [facility]: MarkaVIP LIMITATIONS: None. FINDINGS: Somewhat limited examination due to artifact from the patient's arms. There is cardiomegaly, with particular enlargement of the left ventricle. There is questionable gastric antral wall thickening. There are atherosclerotic changes involving the abdominal aorta, but there is no aneurysm. No evidence of bowel obstruction. There is no significant radiographic abnormality of the liver, spleen, pancreas, adrenal glands or kidneys. There are multiple bilateral renal cysts. No mass or adenopathy. No free air or free fluid. IMPRESSION: Cardiomegaly. Questionable gastric antral wall thickening. Please correlate clinically. TECHNICAL DOCUMENTATION: Quality ID # [id number]: Final reports with documentation of one or more dose reduction techniques (e.g., Automated exposure control, adjustment of the mA and/or kV according to patient size, use of iterative reconstruction technique) copyright 2011 [employer]- All Rights Reserved
[2018-11-12] MEDS ORDERED: METOCLOPRAMIDE HCL ORAL SOLN 10 MG/10 ML UDCUP PO ONE (23:22)
[2018-11-12] MEDS ORDERED: FAMOTIDINE 20 MG TABLET PO ONE (23:22)
[2018-11-12] MEDS ORDERED: LIDOCAINE 2% VISCOUS SOLN 20 ML UDCUP PO ONE (23:22)
[2018-11-12] MEDS ORDERED: SUCRALFATE 1 GM TABLET PO ONE (23:22)
[2018-11-12] MEDS ORDERED: MAG HYDROX/AL HYDROX/SIMETH SUSP 30 ML UDCUP PO ONE (23:22)
[2018-11-12 23:35] VITALS: BP 128/68
== END 2018-11-12 23:55 | disposition home or self-care (01) ==
LOC: ER 19:37
DX: R11.2 Nausea with vomiting, unspecified (principal); K29.00 Acute gastritis without bleeding; R14.2 Eructation; R63.4 Abnormal weight loss; I10 Essential (primary) hypertension; E11.9 Type 2 diabetes mellitus without complications; F17.200 Nicotine dependence, unspecified, uncomplicated; J44.9 Chronic obstructive pulmonary disease, unspecified; Z90.49 Acquired absence of other specified parts of digestive tract; Z85.46 Personal history of malignant neoplasm of prostate
CPT/HCPCS: 99284; 96374; 36415; 82962; 83605; 83690; 85025; 80053; 81001; 84484; 74177; A9270 ×3; J3490; J2405

== ENCOUNTER 2018-12-21 11:45 | Day surgery (SDC) | payer MEDICARE, OTHER ==
[~2018-12-21 11:45] MED LIST: DIPHENHYDRAMINE HCL 50 MG/ML VIAL ONE; EPINEPHRINE INJ 1 MG/10 ML DISP.SYRIN ONE; FENTANYL CITRATE INJ/PF 100 MCG/2 ML AMPUL ONE; FLUMAZENIL INJ 0.5 MG/5 ML VIAL ONE; GLUCAGON,HUMAN RECOMB 1 MG INJ ONE; MIDAZOLAM 2 MG/2 ML INJ ONE; NALOXONE HCL INJ/PF 0.4 MG/1 ML SDV ONE; ONDANSETRON HCL INJ/PF 4 MG/2 ML SDV ONE
--- NOTE | 2018-12-21 12:23 | Operative Report ---
Operative Report DATE OF SURGERY: 12/21/18 Operative Report: The risks benefits and alternatives of the procedure explained to the patient in detail and informed consent is obtained.A GIF Olympus video scope was inserted into the patient's mouth and hypopharynx, the esophagus is identified intubated and insufflated, the scope was then advanced through the esophagus stomach and duodenum, retroflexion maneuver is done, the esophagus stomach and first and second portions of the duodenum examined. PREOPERATIVE DIAGNOSIS: Dysphagia POSTOPERATIVE DIAGNOSIS: Nonspecific esophageal spasm noted. No intraluminal obstruction. No external impingement on the esophagus. Possible Schatzki's ring with breakage. Sliding hiatal hernia. Gastritis status post biopsy. We will obtain manometry study rule out early achalasia OPERATION: EGD with biopsy SURGEON: VANDANA COOL ANESTHESIA: Moderate Sedation - 2 mg of Versed TISSUE REMOVED OR ALTERED: As noted above COMPLICATIONS: None. ESTIMATED BLOOD LOSS: None. INTRAOPERATIVE FINDINGS: As noted above. PROCEDURE: Patient tolerated the procedure well. No immediate postprocedure comp occasions are noted. Patient discharged in good condition. Discharge date 12/21/2018. Discharge diet: Regular. Discharge activity: Regular. 2-3-week follow-up to discuss findings. Patient is instructed to call the office or proceed to the emergency room should there be any further proximal questions. I will wait on the pathology.
[2018-12-21 13:14] VITALS: BP 151/64
== END 2018-12-21 13:30 | disposition home or self-care (01) ==
LOC: END 11:45
PROVIDERS: ATTEND Internal Medicine Gastroenterology
DX: K29.50 Unspecified chronic gastritis without bleeding (principal); K44.9 Diaphragmatic hernia without obstruction or gangrene; K20.9 Esophagitis, unspecified; Z79.4 Long term (current) use of insulin; E78.5 Hyperlipidemia, unspecified; F17.210 Nicotine dependence, cigarettes, uncomplicated; E05.90 Thyrotoxicosis, unspecified without thyrotoxic crisis or storm; E04.2 Nontoxic multinodular goiter; I27.20 Pulmonary hypertension, unspecified; E11.42 Type 2 diabetes mellitus with diabetic polyneuropathy; I25.10 Atherosclerotic heart disease of native coronary artery without angina pectoris; E11.22 Type 2 diabetes mellitus with diabetic chronic kidney disease; I13.0 Hypertensive heart and chronic kidney disease with heart failure and stage 1 through stage 4 chronic kidney disease, or unspecified chronic kidney disease; N18.3 Chronic kidney disease, stage 3 (moderate); I50.22 Chronic systolic (congestive) heart failure; I42.0 Dilated cardiomyopathy; Z85.46 Personal history of malignant neoplasm of prostate; Z79.82 Long term (current) use of aspirin; Z79.899 Other long term (current) drug therapy; Z79.51 Long term (current) use of inhaled steroids
CPT/HCPCS: 43239; 82962; 88342 ×2; 88305 ×2; J2250; J0171; J1200; J1610; J2310; J2405; J3010; J3490

== ENCOUNTER 2018-12-27 15:25 | Emergency (ER) | payer MEDICARE, OTHER ==
--- NOTE | 2018-12-27 16:12 | ER Document Report ---
HPI - HPI Time Seen by Provider: 12/27/18 15:59 Pain Level: 2 Notes: Patient is an 83-year-old male with a history of COPD, AICD placement, hypertension who presents to the emergency department complaining of nasal congestion/discharge, postnasal drip, sinus pressure that is been ongoing for the past 2-3 days. Patient states that he is also had a semi-productive cough with clear sputum on occasion over the past 1-2 days. Patient states that he believes he has a sinus infection which is what he is here for. Patient states that he otherwise has no dyspnea on exertion, shortness of breath, chest pain, palpitations, dizziness, diaphoresis. He is eating and drinking without difficulty. Denies any headache, fever, neck pain, sore throat, syncope, wheeze, abdominal pain, nausea/vomiting/diarrhea, urinary retention, dysuria, hematuria, or rash. - ROS Systems Reviewed and Negative: Yes All other systems reviewed and negative Past Medical History - Social History Smoking Status: Current Every Day Smoker Family History: Reviewed & Not Pertinent, Hypertension Patient has suicidal ideation: No Patient has homicidal ideation: No - Past Medical History Cardiac Medical History: Reports: Hx Congestive Heart Failure, Hx Heart Attack, Hx Hypercholesterolemia, Hx Hypertension Denies: Hx Coronary Artery Disease Pulmonary Medical History: Reports: Hx COPD Denies: Hx Asthma, Hx Bronchitis, Hx Pneumonia Neurological Medical History: Denies: Hx Cerebrovascular Accident, Hx Seizures Endocrine Medical History: Reports: Hx Diabetes Mellitus Type 2, Hx Hyperthyroidism Renal/ Medical History: Denies: Hx Peritoneal Dialysis Musculoskeletal Medical History: Reports Hx Arthritis Psychiatric Medical History: Denies: Hx Attention Deficit Hyperactivity Disorder, Hx Bipolar Disorder, Hx Dementia, Hx Depression Past Surgical History: Reports: Hx Appendectomy, Hx Genitourinary Surgery - prostate ca surgery, Hx Orthopedic Surgery - Cervical spine fusion, Hx Pacemaker - Pacemaker defibrillator January 2018 - Immunizations Hx Diphtheria, Pertussis, Tetanus Vaccination: Yes Vertical Provider Document - CONSTITUTIONAL Agree With Documented VS: Yes Notes: PHYSICAL EXAMINATION: GENERAL: Well-appearing, well-nourished and in no acute distress. A&Ox4. Answers questions appropriately. Moves comfortably w/o notable distress HEAD: Atraumatic, normocephalic. EYES: Pupils equal round and reactive to light, extraocular movements intact, sclera anicteric, conjunctiva are normal. ENT: EAC clear b/l. TM's intact b/l without erythema, fluid, or perforation. Nares patent and with clear discharge. oropharynx no erythema without exudates. No tonsilar hypertrophy without erythema or exudate. No palatine shift. Uvula midline. No tongue protrusion. No drooling, hoarseness, or airway compromise. Moist mucous membranes. No sinus tenderness. NECK: Normal range of motion, supple without lymphadenopathy. No rigidity/meningismus. LUNGS: Breath sounds clear to auscultation bilaterally and equal. No wheezes rales or rhonchi. No retractions HEART: Regular rate and rhythm without murmurs, rubs, gallops. ABDOMEN: Soft, nontender, nondistended abdomen. No guarding, no rebound. Normal bowel sounds present. No CVA tenderness bilaterally. NEUROLOGICAL: Normal speech, normal gait. PSYCH: Normal mood, normal affect. SKIN: Warm, Dry, normal turgor, no rashes or lesions noted. - INFECTION CONTROL TRAVEL OUTSIDE OF THE [place] IN LAST 30 DAYS: No Course - Re-evaluation Re-evalutation: 12/27/18 17:40 Patient is an afebrile, well-hydrated, 83-year-old male who presents emergency department with acute sinusitis. Vitals are acceptable without significant tachycardia, tachypnea, or hypoxia. PE is otherwise unremarkable. Influenza and chest x-ray unremarkable. Patient is nontoxic-appearing and is tolerating p.o. without difficulty. He does not have any associated chest pain, dyspnea on exertion out of the ordinary, or any shortness of breath. He has been trying conservative measures with minimal relief. No further labs or imaging warranted at this time. Low suspicion for any ACS, PE, pneumothorax, pericarditis, dissection, respiratory compromise, severe dehydration, sepsis, meningitis, or other systemic emergent condition at this time. Patient is aware that this condition can change from initial presentation and he needs to monitor symptoms closely and seek medical attention for any acute changes. I will send him home with a pocket prescription for doxycycline. Recommend conservative measures for symptoms. Recheck with your PCM in 2-3 days. Return to the ED with any worsening/concerning symptoms otherwise as reviewed in discharge. Patient is in agreement. - Vital Signs Vital signs: Temp Pulse Resp BP Pulse Ox 98.5 F 75 20 111/54 L 97 12/27/18 15:47 12/27/18 15:47 12/27/18 15:47 12/27/18 15:47 12/27/18 15:47 Discharge - Discharge Clinical Impression: Cough, Nasal congestion with rhinorrhea Condition: Stable Disposition: HOME, SELF-CARE Additional Instructions: Maintain adequate fluid intake Take meds as directed tylenol/ibuprofen as needed over the counter cold medication as needed for symptoms Humidified air may help Wash your hands regularly Wear a mask when coughing F/u: with your PCM in 3-5 days for a recheck Return to the ED with any fever, worsening pain, chest pain, palpitations, syncope, worsening [place], neck pain/stiffness, shortness of breath, wheezing, drooling, trouble swallowing/breathing, abdominal pain, n/v/d, rash, or worsening/concerning symptoms otherwise. Prescriptions: Doxycycline Hyclate 100 mg PO BID #20 capsule Referrals: SHARATH ALVAREZ MD [Primary Care Provider] - 12/29/18
--- NOTE | 2018-12-27 16:36 | RADIOLOGY REPORT (SQ) ---
EXAM DESCRIPTION: CHEST 2 VIEWS COMPLETED DATE/TIME: 12/27/2018 4:26 pm REASON FOR STUDY: cough COMPARISON: 02/08/2015, 11/12/2018 EXAM PARAMETERS: NUMBER OF VIEWS: two views TECHNIQUE: Digital Frontal and Lateral radiographic views of the chest acquired. RADIATION DOSE: NA LIMITATIONS: none FINDINGS: LUNGS AND PLEURA: Stable emphysematous change and chronic interstitial opacities. No new airspace disease, pleural effusion or pneumothorax. MEDIASTINUM AND HILAR STRUCTURES: Stable enlarged cardiac silhouette. Aortic atherosclerosis. HEART AND VASCULAR STRUCTURES: Mildly enlarged cardiac silhouette. BONES: No acute findings. Degenerative changes at the shoulders, unchanged. HARDWARE: Left-sided cardiac pacer with leads overlying right atrium and right ventricle. OTHER: No other significant finding. IMPRESSION: Cardiomegaly without additional evidence of acute cardiopulmonary process. TECHNICAL DOCUMENTATION: JOB ID: [id number] [employer]- All Rights Reserved Reading location - IP/workstation name: [email or web address]
[2018-12-27 17:15] LABS: A TYPE INFLUENZA AG NEGATIVE (NEGATIVE); B INFLUENZA AG NEGATIVE (NEGATIVE)
[2018-12-27 17:59] VITALS: BP 122/76
== END 2018-12-27 17:59 | disposition home or self-care (01) ==
LOC: ER 15:25
DX: R05 Cough (principal); R09.81 Nasal congestion; F17.200 Nicotine dependence, unspecified, uncomplicated; I50.9 Heart failure, unspecified; E78.00 Pure hypercholesterolemia, unspecified; I11.0 Hypertensive heart disease with heart failure; Z95.0 Presence of cardiac pacemaker; Z98.1 Arthrodesis status; I25.2 Old myocardial infarction
CPT/HCPCS: 71046; 87804; 99283

== ENCOUNTER 2019-01-12 10:10 | Inpatient (IN) | payer MEDICARE, OTHER ==
[2019-01-12] MEDS ORDERED: NORMAL SALINE 1000 ML 1,000 ML IV ONE (10:44)
[2019-01-12 10:56] LABS: ABSOLUTE BASOPHILS # (AUTO) 0.1 10^3/uL (0.0-0.2); ABSOLUTE EOSINOPHILS # (AUTO) 0.1 10^3/uL (0.0-0.6); ABSOLUTE LYMPHOCYTES (AUTO) 1.8 10^3/uL (0.5-4.7); ABSOLUTE MONOCYTES (AUTO) 0.5 10^3/uL (0.1-1.4); ABSOLUTE NEUT (AUTO) 2.2 10^3/uL (1.7-8.2); BASOPHILS % (AUTO) 1.6 % (0-2); EOSINOPHILS % (AUTO) 3.1 % (0-6); HEMATOCRIT 40.5 % (37.9-51.0); HEMOGLOBIN 13.3 g/dL (13.5-17.0); LYMPHOCYTES % (AUTO) 38.4 % (13-45); MEAN CORPUSCULAR HEMOGLOBIN 29.3 pg (27.0-33.4); MEAN CORPUSCULAR HGB CONC 32.8 g/dL (32.0-36.0); MEAN CORPUSCULAR VOLUME 89 fl (80-97); MONOCYTES % (AUTO) 9.7 % (3-13); PLATELET COUNT 139 10^3/uL (150-450); RED BLOOD COUNT 4.54 10^6/uL (4.35-5.55); RED CELL DISTRIBUTION WIDTH 17.6 % (11.5-14.0); SEGMENTED NEUTROPHILS % (AUTO) 47.2 % (42-78); TOTAL CELLS COUNTED % (AUTO) 100 %; WHITE BLOOD COUNT 4.7 10^3/uL (4.0-10.5)
[2019-01-12 11:04] LABS: ALANINE AMINOTRANSFERASE 40 U/L (21-72); ALBUMIN 3.7 g/dL (3.5-5.0); ALKALINE PHOSPHATASE 78 U/L (38-126); ANION GAP 6 (5-19); ASPARTATE AMINO TRANSFERASE 36 U/L (17-59); BILIRUBIN,DIRECT 0.4 mg/dL (0.0-0.4); BILIRUBIN,TOTAL 0.9 mg/dL (0.2-1.3); BLOOD UREA NITROGEN 32 mg/dL (7-20); CALCIUM 10.3 mg/dL (8.4-10.2); CARBON DIOXIDE 34 mmol/L (22-30); CHLORIDE 101 mmol/L (98-107); GLUCOSE 132 mg/dL (75-110); POTASSIUM 4.5 mmol/L (3.6-5.0); SODIUM 141.4 mmol/L (137-145); TOTAL PROTEIN 6.7 g/dL (6.3-8.2)
--- NOTE | 2019-01-12 11:04 | RADIOLOGY REPORT (SQ) ---
EXAM DESCRIPTION: CT HEAD WITHOUT COMPLETED DATE/TIME: 01/12/2019 10:55 am REASON FOR STUDY: Dizzy, weak, spinning COMPARISON: None. TECHNIQUE: Axial images acquired through the brain without intravenous contrast. Images reviewed wi th bone, brain and subdural windows. Additional sagittal and coronal reconstructions were generated. Images stored on PACS. All CT scanners at this facility use dose modulation, iterative reconstruction, and/or weight based d osing when appropriate to reduce radiation dose to as low as reasonably achievable (ALARA). [facility]: Dose Right [facility]: CareDose [facility]: Dose Right [facility]: Teradose 4D [facility]: Smart NMRKT RADIATION DOSE: CT Rad equipment meets quality standard of care and radiation dose reduction techniq ues were employed. CTDIvol: 53.2 mGy. DLP: 1070 mGy-cm. mGy. LIMITATIONS: None. FINDINGS: VENTRICLES: Normal size and contour. CEREBRUM: No masses. No hemorrhage. No midline shift. No evidence for acute infarction. Normal gra y/white matter differentiation. No areas of low density in the white matter. CEREBELLUM: No masses. No hemorrhage. No alteration of density. No evidence for acute infarction. EXTRAAXIAL SPACES: No fluid collections. No masses. ORBITS AND GLOBE: No intra- or extraconal masses. Normal contour of globe without masses. CALVARIUM: No fracture. PARANASAL SINUSES: No fluid or mucosal thickening. SOFT TISSUES: No mass or hematoma. OTHER: No other significant finding. IMPRESSION: No acute intracranial pathology. EVIDENCE OF ACUTE STROKE: NO. COMMENT: Quality ID # [id number]: Final reports with documentation of one or more dose reduction techniques (e.g., Automated exposure control, adjustment of the mA and/or kV according to patient size, use of iterative reconstruction technique) TECHNICAL DOCUMENTATION: JOB ID: [id number] [employer]- All Rights Reserved Reading location - IP/workstation name: [email or web address]
--- NOTE | 2019-01-12 11:07 | ER Document Report ---
ED General - General Chief Complaint: Dizziness Stated Complaint: DIZZINESS Time Seen by Provider: 01/12/19 10:32 Primary Care Provider: SHARATH ALVAREZ MD [Primary Care Provider] - Follow up as needed Notes: Patient says he awakened this morning and felt the room was spinning and that he was dizzy and weak all over. Had difficulty standing and walking because he was so weak. He says he felt a little weak last night before he went to bed. Slept well. Has not eaten or had anything to drink this morning. Was nauseated but not vomiting. No change in bowels. No chest pains. Denies shortness of breath or difficulty breathing, but does have a history of COPD. Is not had any recent illness or fevers. Patient does use a walker to ambulate. At this time, patient says his symptoms have subsided and he does not feel dizzy or spinning. Significant past medical history is that patient has a pacemaker defibrillator,, and he has insulin-dependent diabetes, history of CHF, hypertension. TRAVEL OUTSIDE OF THE [place] IN LAST 30 DAYS: No - Related Data Allergies/Adverse Reactions: No Known Allergies Allergy (Verified 01/12/19 10:25) Past Medical History - Social History Smoking Status: Current Every Day Smoker - Just 2 to 3 cigarettes a day Frequency of alcohol use: None Drug Abuse: None Family History: Reviewed & Not Pertinent, Hypertension Patient has suicidal ideation: No Patient has homicidal ideation: No - Past Medical History Cardiac Medical History: Reports: Hx Congestive Heart Failure, Hx Heart Attack, Hx Hypercholesterolemia, Hx Hypertension, Other - Has a pacemaker defibrillator Pulmonary Medical History: Reports: Hx COPD Neurological Medical History: Denies: Hx Cerebrovascular Accident, Hx Seizures Endocrine Medical History: Reports: Hx Diabetes Mellitus Type 1, Hx Diabetes Mellitus Type 2, Hx Hyperthyroidism Musculoskeletal Medical History: Reports Hx Arthritis Past Surgical History: Reports: Hx Appendectomy, Hx Genitourinary Surgery - prostate ca surgery, Hx Orthopedic Surgery - Cervical spine fusion, Hx Pacemaker - Pacemaker defibrillator January 2018 - Immunizations Hx Diphtheria, Pertussis, Tetanus Vaccination: Yes Review of Systems - Review of Systems Notes: REVIEW OF SYSTEMS: CONSTITUTIONAL : Denies fever. EENT: Denies eye, ear, nose or mouth or throat pain or other symptoms. CARDIOVASCULAR: Denies chest pain. RESPIRATORY: Denies cough, chest congestion, or shortness of breath. GASTROINTESTINAL: Denies abdominal pain, or vomiting, or diarrhea. Did feel some nausea this morning but never vomited. GENITOURINARY: Denies difficulty or painful urinating, urinary frequency, blood in urine. History of a kidney stone. MUSCULOSKELETAL: Denies back or neck pain. Denies joint pain or swelling. SKIN: Denies rash or skin lesions. NEUROLOGICAL: Denies LOC or altered mental status. Denies headache. Denies sensory loss or motor deficits. Generalized weakness, but no weakness on one side. ALL OTHER SYSTEMS REVIEWED AND NEGATIVE. Physical Exam - Vital signs Vitals: Temp 97.6 F 01/12/19 10:19 Interpretation: Normal Notes: PHYSICAL EXAMINATION: GENERAL: Well-appearing, in no acute distress. Oriented x3. HEAD: Atraumatic, normocephalic. EYES: Pupils equal round and reactive to light, extraocular movements intact. No nystagmus. ENT: oropharynx clear without exudates. Moist mucous membranes. NECK: Normal range of motion, supple. No carotid bruits heard. LUNGS: Breath sounds clear and equal bilaterally. HEART: Regular rate and rhythm without murmurs. ABDOMEN: Soft, nontender. No guarding or rebound. No masses. BACK: No tenderness throughout entire back. EXTREMITIES: Normal range of motion without pain. +2 pitting edema of the lower legs bilaterally. Says that is been that way for a year or more. NEUROLOGICAL: Normal speech, unable to stand or walk at the bedside. No lateralizing neurologic deficits found.. Awake, alert, and oriented x3. PSYCH: Normal mood, normal affect. SKIN: Warm, dry, no rashes. Course - Re-evaluation Re-evalutation: 01/12/19 12:55 Vomited when attempt to get him out of bed. He was not able to stand or ambulate. 01/12/19 13:08 Al all of patient's work-up essentially normal. Have spoken with the hospitalist about admitting the patient for further evaluation and care as an inpatient. - Vital Signs Vital signs: Temp Pulse Resp BP Pulse Ox 97.6 F 10 L 141/67 H 97 01/12/19 10:19 01/12/19 12:41 01/12/19 12:41 01/12/19 12:41 - Laboratory Result Diagrams: 01/12/19 10:15 01/12/19 10:15 Laboratory results interpreted by me: 01/12/19 01/12/19 01/12/19 10:15 10:15 11:23 Hgb 13.3 L RDW 17.6 H Plt Count 139 L Carbon Dioxide 34 H BUN 32 H Creatinine 1.64 H Est GFR ( Amer) 49 L Est GFR (Non-Af Amer) 40 L Glucose 132 H Calcium 10.3 H Urine Protein 100 H - EKG Interpretation by Me Additional EKG results interpreted by me: 01/12/19 11:11 EKG shows a atrial sensed ventricular paced rhythm at the rate of 62/min. No other interpretation. Discharge - Discharge Clinical Impression: Dizziness, Vertigo, Nausea and vomiting Condition: Stable Disposition: ADMITTED INPATIENT Unit Admitted: Telemetry Referrals: SHARATH ALVAREZ MD [Primary Care Provider] - Follow up as needed
[2019-01-12] MEDS ORDERED: ONDANSETRON HCL INJ/PF 4 MG/2 ML SDV IV ONE (11:26)
[2019-01-12 11:50] LABS: APPEARANCE,URINE CLEAR; BILIRUBIN,URINE NEGATIVE (NEGATIVE); COLOR,URINE YELLOW; GLUCOSE, URINE NEGATIVE (NEGATIVE); KETONES,URINE NEGATIVE (NEGATIVE); LEUKOCYTE ESTERASE,URINE NEGATIVE (NEGATIVE); NITRITE,URINE NEGATIVE (NEGATIVE); PROTEIN,URINE 100 mg/dL (NEGATIVE); URINE SPECIFIC GRAVITY 1.014; UROBILINOGEN,URINE NEGATIVE mg/dL (<2.0)
[2019-01-12] MEDS ORDERED: MECLIZINE HCL 25 MG TABLET PO ONE (13:06)
[2019-01-12] MEDS ORDERED: ONDANSETRON 4 MG TAB.RAPDIS PO PRN (13:55)
[2019-01-12] MEDS ORDERED: ACETAMINOPHEN 325 MG TABLET PO PRN (13:55)
[2019-01-12] MEDS ORDERED: MECLIZINE HCL 25 MG TABLET PO PRN (14:01)
[2019-01-12] MEDS ORDERED: GLUCAGON,HUMAN RECOMB 1 MG INJ IM PRN (14:59)
[2019-01-12] MEDS ORDERED: DEXTROSE 50%-WATER 25 GM/50 ML DISP.SYRIN IV PRN ×2 (14:59)
[2019-01-12] MEDS ORDERED: DEXTROSE 40% GEL 15 GM TUBE PO PRN ×2 (14:59)
--- NOTE | 2019-01-12 16:08 | RADIOLOGY REPORT (SQ) ---
EXAM DESCRIPTION: CHEST SINGLE VIEW COMPLETED DATE/TIME: 01/12/2019 3:59 pm REASON FOR STUDY: LETHARGY. EVAL FOR PNA COMPARISON: 12/27/2018 NUMBER OF VIEWS: One view. TECHNIQUE: Single frontal radiographic view of the chest acquired. LIMITATIONS: None. FINDINGS: LUNGS AND PLEURA: No opacities, masses or pneumothorax. No pleural effusion. MEDIASTINUM AND HILAR STRUCTURES: No masses. Contour normal. HEART AND VASCULAR STRUCTURES: Heart remains enlarged. No failure. BONES: No acute findings. HARDWARE: Unchanged. OTHER: No other significant finding. IMPRESSION: Stable cardiomegaly. No acute findings in the chest. TECHNICAL DOCUMENTATION: JOB ID: [id number] [employer]- All Rights Reserved Reading location - IP/workstation name: [email or web address]
--- NOTE | 2019-01-12 17:09 | PDOC H&P ---
History of Present Illness Admission Date/PCP: SHARATH ALVAREZ MD Patient complains of: DIZZINESS History of Present Illness: ABIGAIL BOUDREAUX is a 83 year old male with a PMH of CHF (LVEF 25%, pacemaker), GA x 2, HTN, HLD, COPD (74-bryt-vujw smoking history), arthritis. He presented to [facility] ED today for dizziness. states the patient woke up with significant dizziness, was unable to get out of bed. She attempted to help him get out of bed and ambulate, but he was unable to do so. She put him back in bed and called EMS. Upon arrival the ED, the patient's laboratory studies were relatively benign, only indicative of acute on chronic kidney disease (baseline creatinine 1.3, today is 1.6). EKG shows ventricular paced rhythm. Head CT is benign. ED staff attempted to ambulate the patient and he became so dizzy that he vomited x1. Upon assessment, the patient is resting comfortably in bed with family at the bedside. He endorses dizziness. PERRLA. No nystagmus present. No evidence of or unilateral facial droop. Lungs are clear to auscultation. Pulses are palpable in the upper extremities, thready in the lower extremities +3 pitting edema in the lower extremities (patient states this is chronic). Unfortunately, we are unable to perform an MRI because of the patient's pacemaker. Plan for admission to the hospitalist service for symptomatic management of vertigo and associated nausea and vomiting. Of note, the patient has a 3-4 month history of nausea and vomiting that is currently being worked up by Dr. Gaming. Extensive workup already completed (CT Abdomen/Pelvis, Barium swallow, EGD with gastric antrum and esophageal biopsy). CT Abdomen/Pelvis shows inflammation of the antrum, no other significant findings. Recent EGD was relatively benign, only showing sliding hiatal hernia, possible esophageal ring. Biopsies were negative. Barium swallow negative for aspiration. Past Medical History Cardiac Medical History: Reports: Congestive Heart Failure, Myocardial Infarction, Hyperlipidema, Hypertension, Other - Has a pacemaker defibrillator Denies: Coronary Artery Disease Pulmonary Medical History: Reports: Chronic Obstructive Pulmonary Disease (COPD) Denies: Asthma, Bronchitis, Pneumonia Neurological Medical History: Denies: Seizures Endocrine Medical History: Reports: Diabetes Mellitus Type 2, Hyperthyroidism Malignancy Medical History: Reports: Other - PROSTATE CANCER Musculoskeltal Medical History: Reports: Arthritis Psychiatric Medical History: Denies: Attention Deficit Hyperactivity Disorder, Bipolar Disorder, Dementia, Depression Hematology: Denies: Anemia, Sickle Cell Disease Past Surgical History Past Surgical History: Reports: Appendectomy, Orthopedic Surgery - Cervical spine fusion, Pacemaker - Pacemaker defibrillator January 2018 Social History Information Source: Patient Lives with: Family Smoking Status: Current Every Day Smoker - Just 2 to 3 cigarettes a day Number of Years Smokin Frequency of Alcohol Use: None Hx Recreational Drug Use: No Drugs: None Hx Prescription Drug Abuse: No - Advance Directive Resuscitation Status: Full Code Family History Family History: Hypertension, Malignancy Parental Family History Reviewed: Yes Children Family History Reviewed: Yes Sibling(s) Family History Reviewed.: Yes Medication/Allergy Home Medications: Albuterol Sulfate [Ventolin 0.083% Neb 2.5 mg/3 mL Ampul] 1 vial NEB BID 01/12/19 Carvedilol [Coreg 3.125 mg Tablet] 3.125 mg PO Q12 01/12/19 Cetirizine HCl [Zyrtec 10 mg Tablet] 10 mg PO DAILY 01/12/19 Furosemide [Lasix 40 mg Tablet] 40 mg PO DAILY 01/12/19 Insulin Degludec [Tresiba Flextouch U-100] 26 unit SQ DAILY 01/12/19 Omeprazole 40 mg PO ACBRKFST 01/12/19 Pravastatin Sodium [Pravachol] 20 mg PO QHS 01/12/19 Ranitidine HCl [Zantac 150 mg Tablet] 150 mg PO QHS 01/12/19 Sucralfate [Carafate 1 gm Tablet] 1 gm PO ACHS 01/12/19 Allergies/Adverse Reactions: No Known Allergies Allergy (Verified 01/12/19 10:25) Review of Systems Constitutional: PRESENT: fatigue. ABSENT: fever(s) Ears: ABSENT: hearing changes Nose, Mouth, and Throat: ABSENT: headache(s) Cardiovascular: PRESENT: edema - LOWER EXTREMITIES Respiratory: ABSENT: dyspnea Gastrointestinal: PRESENT: nausea, vomiting. ABSENT: abdominal pain, diarrhea Genitourinary: ABSENT: dysuria Musculoskeletal: PRESENT: muscle weakness. ABSENT: deformity Integumentary: ABSENT: diaphoresis, wounds Neurological: PRESENT: vertigo, weakness Psychiatric: ABSENT: anxiety, depression Endocrine: ABSENT: cold intolerance, heat intolerance Physical Exam Vital Signs: Temp Pulse Resp BP Pulse Ox 97.6 F 13 123/71 95 01/12/19 10:19 01/12/19 13:41 01/12/19 13:41 01/12/19 13:41 Intake & Output 01/11/19 01/12/19 01/13/19 06:59 06:59 06:59 Weight 79.379 kg General appearance: PRESENT: well-developed, well-nourished Head exam: PRESENT: atraumatic Eye exam: PRESENT: conjunctiva pink, PERRLA Mouth exam: PRESENT: moist, tongue midline Neck exam: PRESENT: full ROM Respiratory exam: PRESENT: clear to auscultation christin, symmetrical, unlabored Cardiovascular exam: PRESENT: other - PACED Pulses: PRESENT: normal radial pulses, +1 pedal pulses bilateral Vascular exam: PRESENT: normal capillary refill GI/Abdominal exam: PRESENT: soft. ABSENT: distended, tenderness Rectal exam: PRESENT: deferred Extremities exam: PRESENT: full ROM, pedal edema - +3 PITTING EDEMA IN B/L LOWER EXTREMITIES Musculoskeletal exam: ABSENT: ambulatory - WEAKNESS AND DIZZINESS TODAY - UNABLE TO AMBULATE Neurological exam: PRESENT: awake, oriented to person, oriented to place, oriented to time, oriented to situation. ABSENT: alert - DROWSY Psychiatric exam: PRESENT: appropriate affect Skin exam: PRESENT: dry, intact, normal color Results Laboratory Results: 01/12/19 10:15 01/12/19 10:15 01/12/19 01/12/19 01/12/19 10:15 10:15 11:23 WBC 4.7 RBC 4.54 Hgb 13.3 L Hct 40.5 MCV 89 MCH 29.3 MCHC 32.8 RDW 17.6 H Plt Count 139 L Seg Neutrophils % 47.2 Lymphocytes % 38.4 Monocytes % 9.7 Eosinophils % 3.1 Basophils % 1.6 Absolute Neutrophils 2.2 Absolute Lymphocytes 1.8 Absolute Monocytes 0.5 Absolute Eosinophils 0.1 Absolute Basophils 0.1 Sodium 141.4 Potassium 4.5 Chloride 101 Carbon Dioxide 34 H Anion Gap 6 BUN 32 H Creatinine 1.64 H Est GFR ( Amer) 49 L Est GFR (Non-Af Amer) 40 L Glucose 132 H Calcium 10.3 H Total Bilirubin 0.9 AST 36 ALT 40 Alkaline Phosphatase 78 Total Protein 6.7 Albumin 3.7 Urine Color YELLOW Urine Appearance CLEAR Urine pH 5.0 Ur Specific [place] 1.014 Urine Protein 100 H Urine Glucose (UA) NEGATIVE Urine Ketones NEGATIVE Urine Blood NEGATIVE Urine Nitrite NEGATIVE Ur Leukocyte Esterase NEGATIVE Urine WBC (Auto) 0 Urine RBC (Auto) 7 01/12/19 10:15 Troponin I 0.057 Impressions: Head CT 01/12/19 10:43 IMPRESSION: No acute intracranial pathology. EVIDENCE OF ACUTE STROKE: NO. Status: Imported from PACS Assessment and Plan - Diagnosis (1) Vertigo Is this a current diagnosis for this admission?: Yes Plan: Unclear etiology Head CT negative Unfortunately, unable to obtain MRI due to patient's pacemaker Hydrating with 1 L IVF, no additional IVF due to LVEF 25% Clear liquid diet PRN antivert (2) Nausea and vomiting Is this a current diagnosis for this admission?: Yes Plan: Secondary to vertigo Abdominal exam benign PRN zofran (3) Chronic kidney disease (CKD) Qualifiers: Chronic kidney disease stage: stage 3 (moderate) Qualified Code(s): N18.3 - Chronic kidney disease, stage 3 (moderate) Is this a current diagnosis for this admission?: Yes Plan: Creatinine 1.6 GFR 49 --> Stage III CKD Patient does not see nuisance animal 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 control agent No dialysis at this time Avoid nephrotoxic medications (4) Congestive heart failure (CHF) Is this a current diagnosis for this admission?: Yes Plan: PMH CHF LVEF 25% from ECHO 05/2018 Systolic heart failure with grade I diastolic dysfunction, moderate pulmonary HTN Cardiac/clear liquid diet (5) Diabetes Qualifiers: Diabetes mellitus type: type 2 Diabetes mellitus care home insulin use: with terminal manager use Diabetes mellitus complication status: without complication Qualified Code(s): E11.9 - Type 2 diabetes mellitus without complications; Z79.4 - snf (current) use of insulin Is this a current diagnosis for this admission?: Yes Plan: PMH DM type 2 Hgb A1c in AM with labs Accuchecks ACHS Humalog SSI - Time Time Spent with patient: 15-24 minutes Medications reviewed and adjusted accordingly: Yes Anticipated discharge: SNF Within: Other - when stabilized - Inpatient Certification Based on my medical assessment, after consideration of the patient's comorbidities, presenting symptoms, or acuity I expect that the services needed warrant INPATIENT care.: Yes I certify that my determination is in accordance with my understanding of Medicare's requirements for reasonable and necessary INPATIENT services [42 CFR 412.3e].: Yes Medical Necessity: Need For Continuous Telemetry Monitoring, Risk of Complication if Not Cared For in Hospital
[2019-01-12] MEDS ORDERED: NORMAL SALINE 1000 ML 1,000 ML IV PRN (17:13)
[2019-01-12] MEDS: INSULIN LISPRO 100 UNIT/ML 3 ML VIAL SUBCUT SCH ×2 (17:48→22:05)
[2019-01-12] MEDS: SUCRALFATE 1 GM TABLET PO SCH ×2 (17:48→21:07)
--- NOTE | 2019-01-12 18:50 | EKG REPORT ---
SEVERITY:- ABNORMAL ECG - ATRIAL-SENSED VENTRICULAR-PACED COMPLEXES : Confirmed by: Maria L Esqueda 12-Jan-2019 18:49:38
[2019-01-12] MEDS: CARVEDILOL 3.125 MG TABLET PO SCH (21:06)
[2019-01-12] MEDS ORDERED: FAMOTIDINE 20 MG TABLET PO SCH ×2 (22:00)
[2019-01-12] MEDS ORDERED: (PENDING PHARMACY ID) (Ranitidine Hcl [Zantac 150 Mg Tablet] 150 MG) PO SCH (22:00)
[2019-01-13 04:18] LABS: HEMATOCRIT 38.1 % (37.9-51.0); HEMOGLOBIN 12.7 g/dL (13.5-17.0); MEAN CORPUSCULAR HEMOGLOBIN 29.4 pg (27.0-33.4); MEAN CORPUSCULAR HGB CONC 33.4 g/dL (32.0-36.0); MEAN CORPUSCULAR VOLUME 88 fl (80-97); PLATELET COUNT 131 10^3/uL (150-450); RED BLOOD COUNT 4.32 10^6/uL (4.35-5.55); RED CELL DISTRIBUTION WIDTH 17.5 % (11.5-14.0); WHITE BLOOD COUNT 4.9 10^3/uL (4.0-10.5)
[2019-01-13 04:37] LABS: ALANINE AMINOTRANSFERASE 27 U/L (21-72); ALBUMIN 3.2 g/dL (3.5-5.0); ALKALINE PHOSPHATASE 73 U/L (38-126); ANION GAP 9 (5-19); ASPARTATE AMINO TRANSFERASE 28 U/L (17-59); BILIRUBIN,DIRECT 0.2 mg/dL (0.0-0.4); BILIRUBIN,TOTAL 0.9 mg/dL (0.2-1.3); BLOOD UREA NITROGEN 27 mg/dL (7-20); CALCIUM 9.6 mg/dL (8.4-10.2); CARBON DIOXIDE 28 mmol/L (22-30); CHLORIDE 102 mmol/L (98-107); CHOLESTEROL 148.08 mg/dL (0-200); GLUCOSE 187 mg/dL (75-110); PHOSPHORUS 2.9 mg/dL (2.5-4.5); SODIUM 138.7 mmol/L (137-145); TOTAL PROTEIN 5.9 g/dL (6.3-8.2); TRIGLYCERIDES 84 mg/dL (<150)
[2019-01-13 04:48] LABS: DIRECT LDL 69 mg/dL (<100); TROPONIN I 0.06 ng/mL
[2019-01-13] MEDS ORDERED: PANTOPRAZOLE SODIUM 40 MG TABLET.DR PO SCH (08:00)
[2019-01-13] MEDS: SUCRALFATE 1 GM TABLET PO SCH ×2 (09:23→13:07)
[2019-01-13] MEDS: CARVEDILOL 3.125 MG TABLET PO SCH (09:23)
[2019-01-13] MEDS: INSULIN LISPRO 100 UNIT/ML 3 ML VIAL SUBCUT SCH ×2 (09:25→13:07)
[2019-01-13] MEDS ORDERED: CETIRIZINE 10 MG TABLET PO SCH (10:00)
[2019-01-13] MEDS ORDERED: FUROSEMIDE 40 MG TABLET PO SCH (10:00)
[2019-01-13] MEDS ORDERED: ENOXAPARIN SODIUM INJ 30 MG/0.3 ML DISP.SYRIN SUBCUT SCH (10:00)
--- NOTE | 2019-01-13 11:15 | EKG REPORT ---
SEVERITY:- ABNORMAL ECG - ATRIAL-SENSED VENTRICULAR-PACED RHYTHM : Confirmed by: Maria L Esqueda 13-Jan-2019 11:13:31
[2019-01-13 14:18] VITALS: BP 140/63
--- NOTE | 2019-01-13 20:27 | PDOC DISCHARGE SUMMARY ---
General - Admit/Disc Date/PCP Admission Date/Primary Care Provider: 01/12/19 14:01 SHARATH ALVAREZ MD Discharge Date: 01/13/19 - Discharge Diagnosis (1) Chronic kidney disease (CKD) Is this a current diagnosis for this admission?: Yes Summary: Stable; somewhat improved after gentle IVF Creatinine 1.6-> 1.26; Stage III CKD Patient does not see tool crib attendant; recommend considering establishing with outpatient tool crib attendant. (2) Congestive heart failure (CHF) Is this a current diagnosis for this admission?: Yes Summary: H CHF LVEF 25% from ECHO 05/2018 Systolic heart failure with grade I diastolic dysfunction, moderate pulmonary HTN Advised patient to continue cardiac diet, weight daily and report any weight gain >2 lbs to PCP. Follow up with established station mechanic as scheduled. (3) Diabetes Is this a current diagnosis for this admission?: Yes Summary: [facility] DM type 2 Hgb A1c 6.8%; for patient of his age, may considering allowing for A1C <8.5% Advised patent to decrease Tresiba to 24 units daily. Monitor blood sugar to prevent hypoglycemia. (4) Nausea and vomiting Is this a current diagnosis for this admission?: Yes Summary: Resolved. Secondary to vertigo. (5) Vertigo Is this a current diagnosis for this admission?: Yes Summary: Resolved. Head CT negative Unable to obtain MRI due to patient's pacemaker Patient was admitted to the medical floor on continuous cardiac telemetry (remains in Paced rhythm). He was provided 1 L IVF and as needed meclizine. Orthostatic vital signs are negative. Patient is now ambulatory and asymptomatic; requesting to be discharged to home. Patient is educated on fluid restriction, low sodium diet, and daily weights. He is instructed to inform his PCP of any weight gain >2 lbs. He is educated on importance of avoiding hypoglycemia; advised slight reduction of Tresiba. Discussed importance of slow position changes. Patient is discharged home in stable condition. He is provided a prescription for front wheel walker; patient reports he is alr margy receiving outpatient physical therapy. He is advised to follow up with his primary care provider within 1 week. Follow up with established station mechanic as scheduled. Return to the emergency department as needed for concerning symptoms. - Additional Information Resuscitation Status: Full Code Discharge Diet: Diabetic Discharge Activity: Activity As Tolerated, Balance Activity w/Rest, Slowly Increase Activity, Supervised Activity Prescriptions: Meclizine HCl [Antivert 25 mg Tablet] 25 mg PO Q6HP PRN #20 tablet PRN Reason: Ondansetron [Zofran Odt 4 mg Tablet] 4 mg PO Q8HP PRN #20 tab.rapdis PRN Reason: Home Medications: Albuterol Sulfate [Ventolin 0.083% Neb 2.5 mg/3 mL Ampul] 1 vial NEB BID 01/12/19 Carvedilol [Coreg 3.125 mg Tablet] 3.125 mg PO Q12 01/12/19 Cetirizine HCl [Zyrtec 10 mg Tablet] 10 mg PO DAILY 01/12/19 Furosemide [Lasix 40 mg Tablet] 40 mg PO DAILY 01/12/19 Omeprazole 40 mg PO ACBRKFST 01/12/19 Pravastatin Sodium [Pravachol] 20 mg PO QHS 01/12/19 Ranitidine HCl [Zantac 150 mg Tablet] 150 mg PO QHS 01/12/19 Sucralfate [Carafate 1 gm Tablet] 1 gm PO ACHS 01/12/19 Acetaminophen [Tylenol 325 mg Tablet] 650 mg PO Q6HP PRN #0 tablet 01/13/19 Insulin Degludec [Tresiba Flextouch U-100] 24 unit SQ DAILY #0 01/13/19 Meclizine HCl [Antivert 25 mg Tablet] 25 mg PO Q6HP PRN #20 tablet 01/13/19 Ondansetron [Zofran Odt 4 mg Tablet] 4 mg PO Q8HP PRN #20 tab.rapdis 01/13/19 History of Present Illness History of Present Illness: Per H&P by GEOVANI MatthewsC: ABIGAIL BOUDREAUX is a 83 year old male with a PMH of CHF (LVEF 25%, pacemaker), [place] x 2, HTN, HLD, COPD ([id number]-wmen smoking history), arthritis. [facility] today for dizziness. states the patient woke up with significant dizziness, was unable to get out of bed. She attempted to help him get out of bed and ambulate, but he was unable to do so. She put him back in bed and called EMS. Upon arrival the ED, the patient's laboratory studies were relatively benign, only indicative of acute on chronic kidney disease (baseline creatinine 1.3, today is 1.6). EKG shows ventricular paced rhythm. Head CT is benign. ED staff attempted to ambulate the patient and he became so dizzy that he vomited x1. Upon assessment, the patient is resting comfortably in bed with family at the bedside. He endorses dizziness. PERRLA. No nystagmus present. No evidence of or unilateral facial droop. Lungs are clear to auscultation. Pulses are palpable in the upper extremities, thready in the lower extremities +3 pitting edema in the lower extremities (patient states this is chronic). Unfortunately, we are unable to perform an MRI because of the patient's pacemaker. Plan for admission to the hospitalist service for symptomatic management of vertigo and associated nausea and vomiting. Of note, the patient has a 3-4 month history of nausea and vomiting that is currently being worked up by Dr. Gaming. Extensive workup already completed (CT Abdomen/Pelvis, Barium swallow, EGD with gastric antrum and esophageal biopsy). CT Abdomen/Pelvis shows inflammation of the antrum, no other significant finding s. Recent EGD was relatively benign, only showing sliding hiatal hernia, possible esophageal ring. Biopsies were negative. Barium swallow negative for aspiration. Physical Exam Vital Signs: Temp Pulse Resp BP Pulse Ox 97.3 F 86 18 140/63 H 97 01/13/19 14:16 01/13/19 14:16 01/13/19 14:16 01/13/19 14:16 01/13/19 14:16 Intake & Output 01/12/19 01/13/19 01/14/19 06:59 06:59 06:59 Intake Total 1665 118 Output Total 850 350 Balance 815 -232 Weight 76 kg General appearance: PRESENT: no acute distress, cooperative, hard of hearing, thin, well-developed Head exam: PRESENT: atraumatic, normocephalic Eye exam: PRESENT: conjunctiva pink, EOMI, PERRLA. ABSENT: scleral icterus Ear exam: PRESENT: normal external ear exam Mouth exam: PRESENT: moist, tongue midline Neck exam: ABSENT: carotid bruit, JVD, lymphadenopathy, thyromegaly Respiratory exam: PRESENT: clear to auscultation christin, symmetrical, unlabored. ABSENT: rales, rhonchi, wheezes Cardiovascular exam: PRESENT: RRR, +S1, +S2, other - paced rhythm. ABSENT: diastolic murmur, rubs, systolic murmur Pulses: PRESENT: normal dorsalis pedis pul Vascular exam: PRESENT: normal capillary refill GI/Abdominal exam: PRESENT: normal bowel sounds, soft. ABSENT: distended, guarding, mass, organolmegaly, rebound, tenderness Rectal exam: PRESENT: deferred Extremities exam: PRESENT: full ROM, +2 edema - BLE. ABSENT: calf tenderness, clubbing, pedal edema Musculoskeletal exam: PRESENT: ambulatory Neurological exam: PRESENT: alert, awake, oriented to person, oriented to place, oriented to time, oriented to situation, CN II-XII grossly intact. ABSENT: motor sensory deficit Psychiatric exam: PRESENT: appropriate affect, normal mood. ABSENT: homicidal ideation, suicidal ideation Skin exam: PRESENT: dry, intact, warm. ABSENT: cyanosis, rash Results Laboratory Results: 01/13/19 04:03 01/13/19 04:03 01/13/19 01/13/19 04:03 04:03 WBC 4.9 RBC 4.32 L Hgb 12.7 L Hct 38.1 MCV 88 MCH 29.4 MCHC 33.4 RDW 17.5 H Plt Count 131 L Sodium 138.7 Potassium 4.0 Chloride 102 Carbon Dioxide 28 Anion Gap 9 BUN 27 H Creatinine 1.26 H Est GFR ( Amer) > 60 Est GFR (Non-Af Amer) 54 L Glucose 187 H Calcium 9.6 Phosphorus 2.9 Magnesium 1.4 L Total Bilirubin 0.9 AST 28 ALT 27 Alkaline Phosphatase 73 Total Protein 5.9 L Albumin 3.2 L Triglycerides 84 Cholesterol 148.08 LDL Cholesterol Direct 69 VLDL Cholesterol 17.0 HDL Cholesterol 67 01/12/19 01/12/19 01/12/19 10:15 10:15 15:39 Troponin I 0.057 0.057 NT-Pro-B Natriuret Pep 5520 H 01/12/19 01/13/19 22:17 04:03 Troponin I 0.059 0.060 NT-Pro-B Natriuret Pep 8540 H Impressions: Chest X-Ray 01/12/19 00:00 IMPRESSION: Stable cardiomegaly. No acute findings in the chest. Head CT 01/12/19 10:43 IMPRESSION: No acute intracranial pathology. EVIDENCE OF ACUTE STROKE: NO. Qualifiers - * PATIENT BEING DISCHARGED WITH ANY OF THE FOLLOWING DIAGNOSIS: No Acute Heart Failure Is this a Heart Failure Patient?: No Plan Discharge Plan: Follow-up with primary care provider within 1 week. Weigh daily and report any weight gain of greater than 2 pounds overnight to primary care provider. Change positions slowly; sit up for 20 to 30 seconds prior to standing. Return to the emergency department as needed for any concerning symptoms. Time Spent: Less than 30 Minutes
== END 2019-01-13 14:50 | disposition home or self-care (01) | DRG 683 ==
LOC: ER 10:10 → EH 14:01 → 3S 18:45
PROVIDERS: ADMIT Internal Medicine; ATTEND Internal Medicine
DX: N17.9 Acute kidney failure, unspecified (principal); I13.0 Hypertensive heart and chronic kidney disease with heart failure and stage 1 through stage 4 chronic kidney disease, or unspecified chronic kidney disease; E11.22 Type 2 diabetes mellitus with diabetic chronic kidney disease; I50.9 Heart failure, unspecified; N18.3 Chronic kidney disease, stage 3 (moderate); I27.20 Pulmonary hypertension, unspecified; E78.00 Pure hypercholesterolemia, unspecified; J44.9 Chronic obstructive pulmonary disease, unspecified; R42 Dizziness and giddiness; F17.210 Nicotine dependence, cigarettes, uncomplicated; I25.2 Old myocardial infarction; Z95.0 Presence of cardiac pacemaker
CPT/HCPCS: 36415; 70450; 71045; 80053; 80061; 81001; 82962; 83036; 83735; 83880; 84100; 84443; 84484; 85025; 85027; 87040; 87086; 93005; 93010; 96361; 96374; 99285; J1815; J2405; J3490; J7030

== ENCOUNTER 2019-04-18 21:17 | Inpatient (IN) | payer MEDICARE, OTHER ==
--- NOTE | 2019-04-18 21:41 | ER Document Report ---
ED General - General Chief Complaint: Palpitations Stated Complaint: HEART PROBLEM Time Seen by Provider: 04/18/19 21:41 Primary Care Provider: SHARATH ALVAREZ MD [Primary Care Provider] - Follow up as needed TRAVEL OUTSIDE OF THE [place] IN LAST 30 DAYS: No - HPI Patient complains to provider of: palpatations Notes: 83-year-old male presents with approximately 1 day history of sensation that his heart is beating very fast out of his chest. He also had increasing shortness of breath and decreased exercise tolerance during this morning. Denies overt chest pain, nausea, vomiting, fever, chills, productive cough, rash. Patient has a lengthy history of cardiac disease. Had recent hospitalization for congestive heart failure exacerbation. But he states his bilateral lower extremity edema is markedly improved. Patient does have a defibrillator in his left chest. Denies any discharge from the defibrillator - Related Data Allergies/Adverse Reactions: No Known Allergies Allergy (Verified 01/12/19 10:25) Past Medical History - Social History Smoking Status: Unknown if Ever Smoked Family History: Reviewed & Not Pertinent, Hypertension - Past Medical History Cardiac Medical History: Reports: Hx Congestive Heart Failure, Hx Heart Attack, Hx Hypercholesterolemia, Hx Hypertension Denies: Hx Coronary Artery Disease Pulmonary Medical History: Reports: Hx COPD Denies: Hx Asthma, Hx Bronchitis, Hx Pneumonia Neurological Medical History: Denies: Hx Cerebrovascular Accident, Hx Seizures Endocrine Medical History: Reports: Hx Diabetes Mellitus Type 1, Hx Diabetes Mellitus Type 2, Hx Hyperthyroidism Renal/ Medical History: Denies: Hx Peritoneal Dialysis Musculoskeletal Medical History: Reports Hx Arthritis Psychiatric Medical History: Denies: Hx Attention Deficit Hyperactivity Disorder, Hx Bipolar Disorder, Hx Dementia, Hx Depression Past Surgical History: Reports: Hx Appendectomy, Hx Genitourinary Surgery - prostate ca surgery, Hx Orthopedic Surgery - Cervical spine fusion, Hx Pacemaker - Pacemaker defibrillator January 2018 - Immunizations Hx Diphtheria, Pertussis, Tetanus Vaccination: Yes Review of Systems - Review of Systems Notes: REVIEW OF SYSTEMS: CONSTITUTIONAL: -fevers, -chills EENT: -eye pain, -difficulty swallowing, -nasal congestion CARDIOVASCULAR: -chest pain, -syncope, positive for palpitation RESPIRATORY: -cough, positive SOB GASTROINTESTINAL: -abdominal pain, -nausea, -vomiting, -diarrhea GENITOURINARY: -dysuria, -hematuria MUSCULOSKELETAL: -back pain, -neck pain SKIN: -rash or skin lesions. HEMATOLOGIC: -easy bruising or bleeding. LYMPHATIC: -swollen, enlarged glands. NEUROLOGICAL: -altered mental status or loss of consciousness, -headache, -laura rologic symptoms PSYCHIATRIC: -anxiety, -depression. ALL OTHER SYSTEMS REVIEWED AND NEGATIVE. Physical Exam - Vital signs Vitals: Resp Pulse Ox 24 H 97 04/18/19 21:34 04/18/19 21:34 - Notes Notes: PHYSICAL EXAMINATION: GENERAL: Well-appearing, well-nourished and in no acute distress. HEAD: Atraumatic, normocephalic. EYES: Pupils equal round and reactive to light, extraocular movements intact, sclera anicteric, conjunctiva are normal. ENT: nares patent, oropharynx clear without exudates. Moist mucous membranes. NECK: Normal range of motion, supple without lymphadenopathy LUNGS: Breath sounds clear to auscultation bilaterally and equal. No wheezes rales or rhonchi. HEART: Tachycardia ABDOMEN: Soft, nontender, normoactive bowel sounds. No guarding, no rebound. No masses appreciated. EXTREMITIES: Normal range of motion, no pitting or edema. No cyanosis. NEUROLOGICAL: Cranial nerves grossly intact. Normal speech, normal gait. Normal sensory and motor exams. PSYCH: Normal mood, normal affect. SKIN: Warm, Dry, normal turgor, no rashes or lesions noted. Course - Re-evaluation Re-evalutation: 04/19/19 00:45 83-year-old male presents with increasing weakness fatigue difficulty breathing shortness of breath. Patient now requiring supplemental oxygen but does have lengthy history of congestive heart failure. Patient had a proBNP profound elevation in the department. Patient's troponin m ild elevation most likely secondary to the CHF. EKG is no ischemic changes. Patient does have CAT scan to rule out pulmonary embolus no PE found. Patient given initial dose of IV Lasix in the emergency department. To be admitted for more close monitoring and diuresis. - Vital Signs Vital signs: Temp Pulse Resp BP Pulse Ox 18 115/96 H 99 04/18/19 23:01 04/18/19 23:01 04/18/19 23:01 - Laboratory Result Diagrams: 04/18/19 21:35 04/18/19 21:35 Laboratory results interpreted by me: 04/18/19 04/18/19 04/18/19 21:35 21:35 21:35 RBC 4.32 L Hgb 12.5 L Hct 37.6 L RDW 16.8 H D-Dimer 1.62 H BUN 53 H Creatinine 1.80 H Est GFR ( Amer) 44 L Est GFR (Non-Af Amer) 36 L Glucose 248 H NT-Pro-B Natriuret Pep 04/18/19 21:35 RBC Hgb Hct RDW D-Dimer BUN Creatinine Est GFR ( Amer) Est GFR (Non-Af Amer) Glucose NT-Pro-B Natriuret Pep 02882 H Discharge - Discharge Clinical Impression: Congestive heart failure (CHF) Qualifiers: Heart failure type: unspecified Heart failure chronicity: acute on chronic Qualified Code(s): I50.9 - Heart failure, unspecified Condition: Stable Disposition: ADMITTED INPATIENT Admitting Provider: Amando (Hospitalist) Unit Admitted: IMCU Referrals: SHARATH ALVAREZ MD [Primary Care Provider] - Follow up as needed
[2019-04-18 21:52] LABS: ABSOLUTE BASOPHILS # (AUTO) 0.1 10^3/uL (0.0-0.2); ABSOLUTE EOSINOPHILS # (AUTO) 0.1 10^3/uL (0.0-0.6); ABSOLUTE LYMPHOCYTES (AUTO) 1.7 10^3/uL (0.5-4.7); ABSOLUTE MONOCYTES (AUTO) 0.5 10^3/uL (0.1-1.4); BASOPHILS % (AUTO) 0.8 % (0-2); EOSINOPHILS % (AUTO) 1.1 % (0-6); HEMATOCRIT 37.6 % (37.9-51.0); HEMOGLOBIN 12.5 g/dL (13.5-17.0); LYMPHOCYTES % (AUTO) 22.6 % (13-45); MEAN CORPUSCULAR HGB CONC 33.2 g/dL (32.0-36.0); MEAN CORPUSCULAR VOLUME 87 fl (80-97); MONOCYTES % (AUTO) 7.4 % (3-13); PLATELET COUNT 204 10^3/uL (150-450); RED BLOOD COUNT 4.32 10^6/uL (4.35-5.55); RED CELL DISTRIBUTION WIDTH 16.8 % (11.5-14.0); SEGMENTED NEUTROPHILS % (AUTO) 68.1 % (42-78); TOTAL CELLS COUNTED % (AUTO) 100 %; WHITE BLOOD COUNT 7.4 10^3/uL (4.0-10.5)
[2019-04-18 22:08] LABS: ALBUMIN 3.9 g/dL (3.5-5.0); ALKALINE PHOSPHATASE 108 U/L (38-126); ANION GAP 8 (5-19); ASPARTATE AMINO TRANSFERASE 47 U/L (17-59); BILIRUBIN,DIRECT 0.3 mg/dL (0.0-0.4); BILIRUBIN,TOTAL 0.6 mg/dL (0.2-1.3); BLOOD UREA NITROGEN 53 mg/dL (7-20); CALCIUM 9.4 mg/dL (8.4-10.2); CARBON DIOXIDE 27 mmol/L (22-30); CHLORIDE 103 mmol/L (98-107); GLUCOSE 248 mg/dL (75-110); POTASSIUM 4.8 mmol/L (3.6-5.0); TOTAL PROTEIN 6.7 g/dL (6.3-8.2)
[2019-04-18 22:23] LABS: TROPONIN I 0.044 ng/mL
--- NOTE | 2019-04-18 22:28 | RADIOLOGY REPORT (SQ) ---
EXAM DESCRIPTION: Portable chest x-ray CLINICAL HISTORY: 83 years Male, sob COMPARISON: 01/12/2019. FINDINGS: Defibrillator leads in good position. Moderate cardiomegaly. Mildly ectatic aorta without suspicious acute mediastinal widening. No suspicious acute lung or pleural abnormalities. IMPRESSION: Cardiomegaly without acute findings.
[2019-04-18] MEDS ORDERED: FUROSEMIDE INJ/PF 40 MG/4 ML SDV IV ONE (22:52)
--- NOTE | 2019-04-19 00:41 | RADIOLOGY REPORT (SQ) ---
CLINICAL HISTORY: elevated d-dimer(1.62) COMPARISON: None. TECHNIQUE: CT CHEST ANGIOGRAPHY WITHOUT THEN WITH IV CONTRAST on 04/18/2019 10:53 PM CDT. MIPS reconstructions were generated. This exam was performed according to our departmental dose-optimization program, which includes automated exposure control, adjustment of the mA and/or kV according to patient size and/or use of iterative reconstruction technique. MIP images were generated. FINDINGS: Thoracic aorta is normal in course and caliber without aneurysm or dissection. Pulmonary arteries are adequately opacified without acute or chronic filling defects. The heart is moderately enlarged. Left biventricular AICD is present. There is no pericardial effusion. Intrathoracic lymph nodes are not enlarged. There is no pleural effusion, pleural thickening or pneumothorax. Central airways are patent. There is upper lung centrilobular emphysema. There are no acute abnormalities within the limited images of the upper abdomen. There are no acute osseous findings. No suspicious bony lesions. IMPRESSION: Cardiomegaly with no aortic dissection or aneurysm. No pulmonary embolus. Emphysema without pneumonia.
[2019-04-19] MEDS ORDERED: ONDANSETRON HCL INJ/PF 4 MG/2 ML SDV IV PRN (01:45)
[2019-04-19] MEDS ORDERED: LEVALBUTEROL HCL NEB 0.63 MG/3 ML AMPUL NEB PRN (01:45)
[2019-04-19] MEDS ORDERED: MAG HYDROX/AL HYDROX/SIMETH SUSP 30 ML UDCUP PO PRN (01:45)
[2019-04-19] MEDS ORDERED: HEPARIN SODIUM,PORCINE/D5W 250 ML IV PRN (01:53)
[2019-04-19] MEDS ORDERED: HEPARIN SOD (PORCINE) 1,000 UNIT/ML 10 ML VIAL IV ONE (01:53)
[2019-04-19] MEDS ORDERED: DEXTROSE 40% GEL 15 GM TUBE PO PRN ×2 (01:55)
[2019-04-19] MEDS ORDERED: DEXTROSE 50%-WATER 25 GM/50 ML DISP.SYRIN IV PRN ×2 (01:55)
[2019-04-19] MEDS ORDERED: GLUCAGON,HUMAN RECOMB 1 MG INJ IM PRN (01:55)
[2019-04-19] MEDS ORDERED: ACETAMINOPHEN 325 MG TABLET PO PRN (01:56)
[2019-04-19] MEDS ORDERED: MORPHINE SULFATE 10 MG/ML INJ IV PRN (01:56)
[2019-04-19] MEDS ORDERED: LORAZEPAM INJ 2 MG/1 ML VIAL IV PRN (01:59)
[2019-04-19 03:21] LABS: FREE T3 4.09 pg/mL (2.77-5.27); FREE T4 (FREE THYROXINE) 2.03 ng/dL (0.78-2.19)
[2019-04-19 03:34] LABS: THYROID STIMULATING HORMONE 0.04 uIU/mL (0.47-4.68)
[2019-04-19 03:39] LABS: PROTHROMBIN TIME 16.3 SEC (11.4-15.4)
[2019-04-19 03:40] LABS: PARTIAL THROMBOPLASTIN TIME 31.9 SEC (23.5-35.8)
[2019-04-19 03:45] LABS: ANION GAP 8 (5-19); BLOOD UREA NITROGEN 52 mg/dL (7-20); CALCIUM 9.3 mg/dL (8.4-10.2); CARBON DIOXIDE 28 mmol/L (22-30); CHLORIDE 104 mmol/L (98-107); GLUCOSE 161 mg/dL (75-110); POTASSIUM 4.3 mmol/L (3.6-5.0)
[2019-04-19 03:57] LABS: CREATINE KINASE MB 1.55 ng/mL (<4.55); TROPONIN I 0.047 ng/mL
[2019-04-19] MEDS: BUMETANIDE INJ/PF 1 MG/4 ML SDV IV SCH ×3 (04:31→17:11)
[2019-04-19] MEDS ORDERED: HEPARIN SOD (PORCINE) 1,000 UNIT/ML 10 ML VIAL IV PRN (04:55)
[2019-04-19] MEDS: PANTOPRAZOLE SODIUM 40 MG TABLET.DR PO SCH (05:37)
--- NOTE | 2019-04-19 05:55 | PDOC H&P ---
History of Present Illness Admission Date/PCP: 04/19/19 00:56 SHARATH ALVAREZ MD Patient complains of: Palpitations History of Present Illness: ABIGAIL BOUDREAUX is a 83 year old male who presented to the emergency room with a 1 day history of palpitations. Patient admits that his heart has been beating very fast throughout the day and feels like it is "coming out of my chest". The patient's severe palpitations have been accompanied by progressively worsening dyspnea with increased dyspnea on exertion. The palpitations have also been associated with increased peripheral edema of both lower extremities. Patient admits similar prior episodes in the past related to his coronary artery disease and heart failure. He denies identification of any additional aggravating or ameliorating factors for his palpitations and dyspnea. In the emergency room the patient's initial evaluation revealed a markedly increased BNP > 14,000, an elevated creatinine and BUN compared to baseline and a positive d-dimer. Cardiac enzymes were noted to be at the patient's baseline. Patient was treated with intravenous diuretic therapy using Lasix and was subsequently admitted to the hospital for further evaluation treatment. Past Medical History Cardiac Medical History: Reports: Congestive Heart Failure, Coronary Artery Disease, Myocardial Infarction, Hyperlipidema, Hypertension Pulmonary Medical History: Reports: Chronic Obstructive Pulmonary Disease (COPD) Denies: Asthma, Bronchitis, Pneumonia EENT Medical History: Reports: Nose - Allergic rhinitis Denies: Cataracts Neurological Medical History: Denies: Hemorrhagic CVA, Ischemic CVA, Seizures Endocrine Medical History: Reports: Diabetes Mellitus Type 2, Hyperthyroidism Denies: Diabetes Mellitus Type 1, Hypothyroidism Renal/ Medical History: Reports: Chronic Kidney Disease Denies: Nephrolithiasis Malignancy Medical History: Reports: Other - Prostate cancer GI Medical History: Denies: Cirrhosis, Crohn's Disease, Hepatitis, Ulcerative Colitis Musculoskeltal Medical History: Reports: Arthritis Denies: Gout Skin Medical History: Denies: Eczema, Psoriasis Psychiatric Medical History: Reports: Tobacco Dependency Denies: Alcohol Dependency, Substance Abuse Traumatic Medical History: Reports: None Hematology: Denies: Anemia, Bleeding Tendencies Infectious Medical History: Reports: None Past Surgical History Past Surgical History: Reports: Appendectomy, Orthopedic Surgery - Cervical spine fusion, Pacemaker - Pacemaker defibrillator January 2018 Social History Information Source: Patient Lives with: Spouse/Significant other Smoking Status: Current Every Day Smoker - Smokes 2 or 3 cigarettes daily. Number of Years Smokin Frequency of Alcohol Use: None Hx Recreational Drug Use: No Drugs: None Hx Prescription Drug Abuse: No - Advance Directive Resuscitation Status: Full Code Surrogate healthcare decision maker:: Mary Mukesh Family History Family History: Hypertension, Malignancy. denies: CAD, DM Parental Family History Reviewed: Yes Children Family History Reviewed: No Sibling(s) Family History Reviewed.: Yes Medication/Allergy Home Medications: Albuterol Sulfate [Ventolin 0.083% Neb 2.5 mg/3 mL Ampul] 1 vial NEB BID 01/12/19 Carvedilol [Coreg 3.125 mg Tablet] 3.125 mg PO Q12 01/12/19 Cetirizine HCl [Zyrtec 10 mg Tablet] 10 mg PO DAILY 01/12/19 Furosemide [Lasix 40 mg Tablet] 40 mg PO DAILY 01/12/19 Omeprazole 40 mg PO ACBRKFST 01/12/19 Pravastatin Sodium [Pravachol] 20 mg PO QHS 01/12/19 Ranitidine HCl [Zantac 150 mg Tablet] 150 mg PO QHS 01/12/19 Sucralfate [Carafate 1 gm Tablet] 1 gm PO ACHS 01/12/19 Acetaminophen [Tylenol 325 mg Tablet] 650 mg PO Q6HP PRN #0 tablet 01/13/19 Insulin Degludec [Tresiba Flextouch U-100] 24 unit SQ DAILY #0 01/13/19 Meclizine HCl [Antivert 25 mg Tablet] 25 mg PO Q6HP PRN #20 tablet 01/13/19 Ondansetron [Zofran Odt 4 mg Tablet] 4 mg PO Q8HP PRN #20 tab.rapdis 01/13/19 Allergies/Adverse Reactions: No Known Allergies Allergy (Verified 01/12/19 10:25) Review of Systems Constitutional: ABSENT: chills, fever(s) Eyes: ABSENT: visual disturbances, other - Eye pain Ears: ABSENT: hearing changes, other - Ear pain Nose, Mouth, and Throat: ABSENT: mouth pain, sore throat Cardiovascular: PRESENT: as per HPI, dyspnea on exertion, edema, orthropnea - Chronic orthopnea, palpitations. ABSENT: chest pain Respiratory: PRESENT: as per HPI, dyspnea. ABSENT: cough Gastrointestinal: ABSENT: abdominal pain, constipation, diarrhea, nausea, vomiting Genitourinary: ABSENT: dysuria, hematuria Musculoskeletal: ABSENT: back pain, joint swelling, muscle weakness Integumentary: ABSENT: diaphoresis, pruritus, rash Neurological: ABSENT: confusion, convulsions, focal weakness, memory loss, syn cope Psychiatric: ABSENT: anxiety, depression Endocrine: ABSENT: cold intolerance, heat intolerance Hematologic/Lymphatic: ABSENT: easy bleeding, easy bruising Allergic/Immunologic: PRESENT: seasonal rhinorrhea Physical Exam Vital Signs: Temp Pulse Resp BP Pulse Ox 18 115/96 H 99 04/18/19 23:01 04/18/19 23:01 04/18/19 23:01 Intake & Output 04/17/19 04/18/19 04/19/19 23:59 23:59 23:59 Weight 82.554 kg General appearance: PRESENT: no acute distress, cooperative Head exam: PRESENT: atraumatic, normocephalic Eye exam: PRESENT: conjunctiva pink. ABSENT: conjunctival injection, scleral icterus Ear exam: PRESENT: normal external ear exam. ABSENT: bleeding, drainage Mouth exam: PRESENT: dry mucosa, neck supple Neck exam: ABSENT: JVD, thyromegaly, tracheal deviation Respiratory exam: PRESENT: clear to auscultation christin, symmetrical, unlabored Cardiovascular exam: PRESENT: gallop - S3 gallop rhythm, RRR, other - Frequent irregular beats. ABSENT: clicks, rubs Pulses: PRESENT: normal radial pulses, normal dorsalis pedis pul Vascular exam: PRESENT: normal capillary refill. ABSENT: pallor GI/Abdominal exam: PRESENT: normal bowel sounds, soft. ABSENT: tenderness Rectal exam: PRESENT: deferred Extremities exam: PRESENT: pedal edema, +2 edema - Bilateral pretibial edema. ABSENT: joint swelling, tenderness Musculoskeletal exam: ABSENT: deformity, dislocation Neurological exam: PRESENT: alert, oriented to person, oriented to place, oriented to time, oriented to situation, CN II-XII grossly intact. ABSENT: motor sensory deficit Psychiatric exam: PRESENT: appropriate affect, normal mood Skin exam: PRESENT: dry, intact, warm. ABSENT: jaundice, rash, urticaria Results Laboratory Results: 04/18/19 21:35 04/18/19 21:35 04/18/19 04/18/19 21:35 21:35 WBC 7.4 RBC 4.32 L Hgb 12.5 L Hct 37.6 L MCV 87 MCH 29.0 MCHC 33.2 RDW 16.8 H Plt Count 204 Seg Neutrophils % 68.1 Lymphocytes % 22.6 Monocytes % 7.4 Eosinophils % 1.1 Basophils % 0.8 Absolute Neutrophils 5.0 Absolute Lymphocytes 1.7 Absolute Monocytes 0.5 Absolute Eosinophils 0.1 Absolute Basophils 0.1 Sodium 138.3 Potassium 4.8 Chloride 103 Carbon Dioxide 27 Anion Gap 8 BUN 53 H Creatinine 1.80 H Est GFR ( Amer) 44 L Est GFR (Non-Af Amer) 36 L Glucose 248 H Calcium 9.4 Total Bilirubin 0.6 AST 47 Alkaline Phosphatase 108 Total Protein 6.7 Albumin 3.9 04/18/19 21:35 Troponin I 0.044 NT-Pro-B Natriuret Pep 45751 H Impressions: Chest X-Ray 04/18/19 21:46 IMPRESSION: Cardiomegaly without acute findings. Chest/Abdomen CTA 04/18/19 22:53 IMPRESSION: Cardiomegaly with no aortic dissection or aneurysm. No pulmonary embolus. Emphysema without pneumonia. Assessment and Plan - Diagnosis (1) Rapid palpitations Is this a current diagnosis for this admission?: Yes Plan: With acute onset of rapid palpitations further evaluation including serial EKGs, serial cardiac enzymes and a VQ scan to assess for a possible pulmonary embolus. Patient will have available morphine sulfate 2 mg IV every 2 hours on a as needed basis for dyspnea and discomfort related to his palpitations. Additionally he may use Ativan 0.5 mg IV every 4 hours on a as needed basis for anxiety or restlessness related to his palpitations. (2) Acute on chronic systolic (congestive) heart failure Is this a current diagnosis for this admission?: Yes Plan: Patient will be continued on his usual medications for heart failure. He will be given additional diuretic therapy initially with IV Bumex 2 mg given every 8 hours x3 doses. Plan would then be to convert the patient Demadex orally for more consistent diuresis and control of his congestive heart failure. Daily CBCs, metabolic profiles and magnesium levels will be followed throughout his h ospital course. (3) Chronic obstructive pulmonary disease Qualifiers: COPD type: unspecified COPD Qualified Code(s): J44.9 - Chronic obstructive pulmonary disease, unspecified Is this a current diagnosis for this admission?: Yes Plan: Patient will be continued on his usual medications for COPD. His respiratory status was monitored closely throughout his hospital course with frequent assessments of his O2 sat. (4) Diabetes mellitus type 2 in nonobese Is this a current diagnosis for this admission?: Yes Plan: Patient will be continued on his usual diabetic therapy and a diabetic diet. Before meals and at bedtime Accu-Cheks will be obtained. Hyperglycemia will be treated with sliding scale insulin. A hypoglycemic protocol will also be in place. (5) Chronic kidney disease (CKD) Qualifiers: Chronic kidney disease stage: stage 3 (moderate) Qualified Code(s): N18.3 - Chronic kidney disease, stage 3 (moderate) Is this a current diagnosis for this admission?: Yes Plan: Patient's renal status to be monitored on a regular basis with daily metabolic profiles being obtained. (6) Hyperthyroidism Is this a current diagnosis for this admission?: Yes Plan: Patient's thyroid profile will be assessed and thyroid disease will be considered as a possible cause of acute rapid palpitations and worsening of his congestive heart failure. (7) Coronary artery disease Qualifiers: Coronary Disease-Associated Artery/Lesion type: [place] artery [place] vs. transplanted heart: [place] heart Associated angina: without angina Qualified Code(s): I25.10 - Atherosclerotic heart disease of [place] coronary artery without angina pectoris Is this a current diagnosis for this admission?: Yes Plan: Patient will be continued on his usual medications for coronary artery disease. Patient will be in a telemetry bed for the entirety of his evaluation. - Time Time Spent with patient: 25-34 minutes Smoking Cessation Education: 3 to 10 minutes Medications reviewed and adjusted accordingly: Yes Anticipated discharge: Home with Homehealth - Inpatient Certification Based on my medical assessment, after consideration of the patient's comorbidities, presenting symptoms, or acuity I expect that the services needed warrant INPATIENT care.: Yes I certify that my determination is in accordance with my understanding of Medicare's requirements for reasonable and necessary INPATIENT services [42 CFR 412.3e].: Yes Medical Necessity: Significant Comorbidiites Make Outpatient Treatment Too Risky, Need Close Monitoring Due to Risk of Patient Decompensation, Need For Continuous Telemetry Monitoring, Risk of Complication if Not Cared For in Hospital
--- NOTE | 2019-04-19 05:59 | ADVANCED CARE ---
- Diagnosis (1) Rapid palpitations Diagnosis Current: Yes (2) Acute on chronic systolic (congestive) heart failure Diagnosis Current: Yes (3) Chronic obstructive pulmonary disease Diagnosis Current: Yes (4) Diabetes mellitus type 2 in nonobese Diagnosis Current: Yes (5) Chronic kidney disease (CKD) Diagnosis Current: Yes (6) Hyperthyroidism Diagnosis Current: Yes (7) Coronary artery disease Diagnosis Current: Yes Attendance: The patient, his Mary Mayorga and myself. Resuscitation Status: Full Code Discussion: After brief discussion the patient and his have determined that he should remain full code for resuscitation status during this hospital admission. Patient is also designated Mary Mayorga as his surrogate medical decision-maker. Care Planning Goals: 1. Patient will be full CODE STATUS for this admission. 2. Mary Mayorga is the patient's designated surrogate medical decision-maker. Document(s) Completed: The following information will be entered into the patient's permanent medical record, current medical record and current orders via EMR entry: 1. Patient will be full CODE STATUS for this admission. 2. Mary Mayorga is the patient's designated surrogate medical decision-maker. Time Spent: 16 minutes
[2019-04-19 07:23] LABS: APPEARANCE,URINE CLEAR; BILIRUBIN,URINE NEGATIVE (NEGATIVE); COLOR,URINE STRAW; GLUCOSE, URINE NEGATIVE (NEGATIVE); KETONES,URINE NEGATIVE (NEGATIVE); LEUKOCYTE ESTERASE,URINE NEGATIVE (NEGATIVE); NITRITE,URINE NEGATIVE (NEGATIVE); PROTEIN,URINE NEGATIVE (NEGATIVE); URINE SPECIFIC GRAVITY 1.014; UROBILINOGEN,URINE NEGATIVE mg/dL (<2.0)
[2019-04-19] MEDS: BUDESONIDE NEB 0.5 MG/2 ML AMPUL NEB SCH ×2 (08:35→20:00)
[2019-04-19] MEDS: LEVALBUTEROL HCL NEB 1.25 MG/3 ML AMPUL NEB SCH ×2 (08:35→16:35)
[2019-04-19] MEDS: IPRATROPIUM BROMIDE 0.02% NEB 0.5 MG/2.5 ML AMPUL NEB SCH ×2 (08:35→16:34)
[2019-04-19] MEDS: INSULIN REG, HUMAN 100 UNIT/ML 3 ML VIAL (PYX) SUBCUT SCH ×4 (08:44→23:37)
[2019-04-19 08:47] LABS: CREATINE KINASE MB 1.38 ng/mL (<4.55); TROPONIN I 0.049 ng/mL
[2019-04-19] MEDS: SUCRALFATE 1 GM TABLET PO SCH ×4 (08:56→21:20)
[2019-04-19] MEDS: CARVEDILOL 3.125 MG TABLET PO SCH ×2 (10:05→21:20)
[2019-04-19] MEDS: HEPARIN SOD (PORCINE) 5,000 UNIT/ML 1 ML VIAL SUBCUT SCH ×2 (10:22→21:20)
[2019-04-19] MEDS: DOCUSATE SODIUM 100 MG CAPSULE PO SCH ×2 (10:22→17:02)
[2019-04-19] MEDS: INSULIN GLARGINE,HUM.REC.ANLOG 1,000 UNIT/10 ML VIAL SUBCUT SCH (10:24)
--- NOTE | 2019-04-19 12:51 | EKG REPORT ---
SEVERITY:- ABNORMAL ECG - ATRIAL FLUTTER/FIBRILLATION, A-RATE [address] DEPRESSION, CONSIDER ISCHEMIA, ANT-LAT LDS : Confirmed by: Gage Michael MD 19-Apr-2019 12:50:02
[2019-04-19 16:49] LABS: CREATINE KINASE MB 1.27 ng/mL (<4.55); TROPONIN I 0.042 ng/mL
--- NOTE | 2019-04-19 18:02 | EKG REPORT ---
SEVERITY:- ABNORMAL ECG - ATRIAL FLUTTER RHYTHM RIGHT BUNDLE BRANCH BLOCK ST DEPRESSION, CONSIDER ISCHEMIA, ANT-LAT LDS : Confirmed by: Gage Michael MD 19-Apr-2019 18:01:46
--- NOTE | 2019-04-19 21:44 | PDOC PROGRESS REPORT ---
Subjective Progress Note for:: 04/19/19 Subjective:: Resting comfortably in the chair. He was just admitted earlier this morning. Complains that he did not have enough to eat for lunch. Reason For Visit: ACUTE RAPID PALPITATIONS, ACUTE ON CHRONIC Physical Exam Vital Signs: Temp Pulse Resp BP Pulse Ox 97.4 F 42 L 18 99/64 L 100 04/19/19 11:12 04/19/19 11:12 04/19/19 11:12 04/19/19 11:12 04/19/19 11:12 Intake & Output 04/18/19 04/19/19 04/20/19 06:59 06:59 06:59 Intake Total 200 Output Total 1300 Balance -1100 Weight 81 kg General appearance: PRESENT: no acute distress, cooperative, well-developed Head exam: PRESENT: atraumatic, normocephalic Eye exam: PRESENT: conjunctiva pink. ABSENT: scleral icterus Ear exam: PRESENT: normal external ear exam Mouth exam: PRESENT: moist, tongue midline Respiratory exam: PRESENT: clear to auscultation christin, symmetrical, unlabored. ABSENT: rales, rhonchi, tachypnea, wheezes Cardiovascular exam: PRESENT: RRR - Seems to be a regular irregular rhythm, +S1, +S2 GI/Abdominal exam: PRESENT: normal bowel sounds, soft. ABSENT: distended, tenderness Rectal exam: PRESENT: deferred Gentrourinary exam: ABSENT: indwelling catheter Extremities exam: PRESENT: +2 edema Neurological exam: PRESENT: alert, awake, oriented to person, oriented to place, oriented to time, oriented to situation, CN II-XII grossly intact Psychiatric exam: PRESENT: appropriate affect. ABSENT: agitated, anxious Focused psych exam: ABSENT: delusional, restlessness Results Laboratory Results: 04/18/19 21:35 04/19/19 03:24 04/18/19 04/18/19 04/18/19 21:35 21:35 21:35 WBC 7.4 RBC 4.32 L Hgb 12.5 L Hct 37.6 L MCV 87 MCH 29.0 MCHC 33.2 RDW 16.8 H Plt Count 204 Seg Neutrophils % 68.1 Lymphocytes % 22.6 Monocytes % 7.4 Eosinophils % 1.1 Basophils % 0.8 Absolute Neutrophils 5.0 Absolute Lymphocytes 1.7 Absolute Monocytes 0.5 Absolute Eosinophils 0.1 Absolute Basophils 0.1 Sodium 138.3 Potassium 4.8 Chloride 103 Carbon Dioxide 27 Anion Gap 8 BUN 53 H Creatinine 1.80 H Est GFR ( Amer) 44 L Est GFR (Non-Af Amer) 36 L Glucose 248 H Calcium 9.4 Magnesium Total Bilirubin 0.6 AST 47 Alkaline Phosphatase 108 Total Protein 6.7 Albumin 3.9 TSH 0.04 L Free T4 2.03 Free T3 pg/mL 4.09 Urine Color Urine Appearance Urine pH Ur Specific [place] Urine Protein Urine Glucose (UA) Urine Ketones Urine Blood Urine Nitrite Ur Leukocyte Esterase Urine WBC (Auto) Urine RBC (Auto) 04/19/19 04/19/19 03:24 04:30 WBC RBC Hgb Hct MCV MCH MCHC RDW Plt Count Seg Neutrophils % Lymphocytes % Monocytes % Eosinophils % Basophils % Absolute Neutrophils Absolute Lymphocytes Absolute Monocytes Absolute Eosinophils Absolute Basophils Sodium 139.6 Potassium 4.3 Chloride 104 Carbon Dioxide 28 Anion Gap 8 BUN 52 H Creatinine 1.74 H Est GFR ( Amer) 45 L Est GFR (Non-Af Amer) 37 L Glucose 161 H Calcium 9.3 Magnesium 2.0 Total Bilirubin AST Alkaline Phosphatase Total Protein Albumin TSH Free T4 Free T3 pg/mL Urine Color STRAW Urine Appearance CLEAR Urine pH 5.0 Ur Specific [place] 1.014 Urine Protein NEGATIVE Urine Glucose (UA) NEGATIVE Urine Ketones NEGATIVE Urine Blood SMALL H Urine Nitrite NEGATIVE Ur Leukocyte Esterase NEGATIVE Urine WBC (Auto) 0 Urine RBC (Auto) 1 04/18/19 04/19/19 04/19/19 21:35 03:24 03:24 Creatine Kinase 53 L CK-MB (CK-2) 1.55 Troponin I 0.044 0.047 NT-Pro-B Natriuret Pep 93303 H 04/19/19 04/19/19 08:00 08:00 Creatine Kinase 48 L CK-MB (CK-2) 1.38 Troponin I 0.049 NT-Pro-B Natriuret Pep Impressions: Chest X-Ray 04/18/19 21:46 IMPRESSION: Cardiomegaly without acute findings. Chest/Abdomen CTA 04/18/19 22:53 IMPRESSION: Cardiomegaly with no aortic dissection or aneurysm. No pulmonary embolus. Emphysema without pneumonia. Assessment and Plan - Diagnosis (1) Rapid palpitations Is this a current diagnosis for this admission?: Yes Plan: With acute onset of rapid palpitations further evaluation including serial EKGs, serial cardiac enzymes and a VQ scan to assess for a possible pulmonary embolus. Patient will have available morphine sulfate 2 mg IV every 2 hours on a as needed basis for dyspnea and discomfort related to his palpitations. Additionally he may use Ativan 0.5 mg IV every 4 hours on a as needed basis for anxiety or restlessness related to his palpitations. 04/19/2019-the patient is resting comfortably. He was admitted early this morning. No new complaints. (2) Acute on chronic systolic (congestive) heart failure Is this a current diagnosis for this admission?: Yes Plan: Patient will be continued on his usual medications for heart failure. He will be given additional diuretic therapy initially with IV Bumex 2 mg given every 8 hours x3 doses. Plan would then be to convert the patient Demadex orally for more consistent diuresis and control of his congestive heart failure. Daily CBCs, metabolic profiles and magnesium levels will be followed throughout his hospital course. 04/19/2019-currently stable. See above for current treatment plan. (3) Chronic obstructive pulmonary disease Qualifiers: COPD type: unspecified COPD Qualified Code(s): J44.9 - Chronic obstructive pulmonary disease, unspecified Is this a current diagnosis for this admission?: Yes Plan: Patient will be continued on his usual medications for COPD. His respiratory status was monitored closely throughout his hospital course with frequent assessments of his O2 sat. 04/19/2019-breathing comfortably. Reassess tomorrow. (4) Diabetes mellitus type 2 in nonobese Is this a current diagnosis for this admission?: Yes Plan: Patient will be continued on his usual diabetic therapy and a diabetic diet. Before meals and at bedtime Accu-Cheks will be obtained. Hyperglycemia will be treated with sliding scale insulin. A hypoglycemic protocol will also be in place. 04/19/2019-we will monitor Accu-Cheks through the hospitalization. (5) Chronic kidney disease (CKD) Qualifiers: Chronic kidney disease stage: stage 3 (moderate) Qualified Code(s): N18.3 - Chronic kidney disease, stage 3 (moderate) Is this a current diagnosis for this admission?: Yes Plan: Patient's renal status to be monitored on a regular basis with daily metabolic profiles being obtained. 04/19/2019-we will monitor renal function throughout the hospitalization. (6) Coronary artery disease Qualifiers: Coronary Disease-Associated Artery/Lesion type: [place] artery [place] vs. transplanted heart: [place] heart Associated angina: without angina Qualified Code(s): I25.10 - Atherosclerotic heart disease of [place] coronary artery wit hout angina pectoris Is this a current diagnosis for this admission?: Yes Plan: Patient will be continued on his usual medications for coronary artery disease. Patient will be in a telemetry bed for the entirety of his evaluation. 04/19/2019-currently no complaints of chest pain or palpitations. Will follow treatment plan initiated at admission. (7) Hyperthyroidism Is this a current diagnosis for this admission?: Yes Plan: Patient's thyroid profile will be assessed and thyroid disease will be considered as a possible cause of acute rapid palpitations and worsening of his congestive heart failure. 04/19/2019-we will review thyroid chemistries regarding increased heart rate. - Time Time Spent with patient: 15-24 minutes Medications reviewed and adjusted accordingly: Yes Anticipated discharge: Home
[2019-04-19] MEDS ORDERED: ATORVASTATIN CALCIUM 10 MG TABLET PO SCH (22:00)
[2019-04-20] MEDS: LEVALBUTEROL HCL NEB 1.25 MG/3 ML AMPUL NEB SCH ×3 (00:22→15:53)
[2019-04-20] MEDS: IPRATROPIUM BROMIDE 0.02% NEB 0.5 MG/2.5 ML AMPUL NEB SCH ×3 (00:22→15:53)
[2019-04-20] MEDS: PANTOPRAZOLE SODIUM 40 MG TABLET.DR PO SCH (06:11)
[2019-04-20 06:20] LABS: HEMATOCRIT 36.3 % (37.9-51.0); MEAN CORPUSCULAR HEMOGLOBIN 28.5 pg (27.0-33.4); MEAN CORPUSCULAR HGB CONC 33.1 g/dL (32.0-36.0); MEAN CORPUSCULAR VOLUME 86 fl (80-97); PLATELET COUNT 212 10^3/uL (150-450); RED BLOOD COUNT 4.21 10^6/uL (4.35-5.55); RED CELL DISTRIBUTION WIDTH 16.4 % (11.5-14.0); WHITE BLOOD COUNT 6.2 10^3/uL (4.0-10.5)
[2019-04-20 06:35] LABS: ANION GAP 8 (5-19); BLOOD UREA NITROGEN 50 mg/dL (7-20); CALCIUM 9.2 mg/dL (8.4-10.2); CARBON DIOXIDE 33 mmol/L (22-30); CHLORIDE 99 mmol/L (98-107); CHOLESTEROL 132.14 mg/dL (0-200); TRIGLYCERIDES 39 mg/dL (<150)
[2019-04-20 06:46] LABS: DIRECT LDL 59 mg/dL (<100)
[2019-04-20 06:52] LABS: GLUCOSE 58 mg/dL (75-110)
[2019-04-20] MEDS: INSULIN REG, HUMAN 100 UNIT/ML 3 ML VIAL (PYX) SUBCUT SCH ×2 (08:37→14:14)
[2019-04-20] MEDS: BUDESONIDE NEB 0.5 MG/2 ML AMPUL NEB SCH (08:38)
[2019-04-20] MEDS: HEPARIN SOD (PORCINE) 5,000 UNIT/ML 1 ML VIAL SUBCUT SCH (09:17)
[2019-04-20] MEDS: INSULIN GLARGINE,HUM.REC.ANLOG 1,000 UNIT/10 ML VIAL SUBCUT SCH (09:18)
[2019-04-20] MEDS: SUCRALFATE 1 GM TABLET PO SCH ×2 (09:18→14:14)
[2019-04-20] MEDS: DOCUSATE SODIUM 100 MG CAPSULE PO SCH (09:18)
[2019-04-20] MEDS: CARVEDILOL 3.125 MG TABLET PO SCH (09:19)
[2019-04-20 09:55] LABS: APPEARANCE,URINE CLEAR; BILIRUBIN,URINE NEGATIVE (NEGATIVE); COLOR,URINE YELLOW; GLUCOSE, URINE NEGATIVE (NEGATIVE); KETONES,URINE NEGATIVE (NEGATIVE); LEUKOCYTE ESTERASE,URINE SMALL (NEGATIVE); NITRITE,URINE NEGATIVE (NEGATIVE); PROTEIN,URINE NEGATIVE (NEGATIVE); URINE SPECIFIC GRAVITY 1.018; UROBILINOGEN,URINE NEGATIVE mg/dL (<2.0)
[2019-04-20 09:56] LABS: ADD MANUAL MICROSCOPIC YES
[2019-04-20 10:09] LABS: HYALINE CASTS, URINE RARE /LPF; RBC,URINE 50-100 /HPF; WBC,URINE 50-100 /HPF
[2019-04-20 16:29] VITALS: BP 92/53
[2019-04-20] MEDS ORDERED: SACUBITRIL/VALSARTAN 24 MG/26 MG TABLET PO SCH (18:00)
== END 2019-04-20 17:32 | disposition home or self-care (01) | DRG 682 ==
LOC: ER 21:17 → EH 04-19 00:56 → 3S 04-19 03:05
PROVIDERS: ADMIT Emergency Medicine; ATTEND Emergency Medicine
DX: I12.9 Hypertensive chronic kidney disease with stage 1 through stage 4 chronic kidney disease, or unspecified chronic kidney disease (principal); I50.23 Acute on chronic systolic (congestive) heart failure; I25.10 Atherosclerotic heart disease of native coronary artery without angina pectoris; E78.5 Hyperlipidemia, unspecified; J44.9 Chronic obstructive pulmonary disease, unspecified; E05.90 Thyrotoxicosis, unspecified without thyrotoxic crisis or storm; N18.3 Chronic kidney disease, stage 3 (moderate); E11.22 Type 2 diabetes mellitus with diabetic chronic kidney disease; E78.00 Pure hypercholesterolemia, unspecified; F17.210 Nicotine dependence, cigarettes, uncomplicated; I25.2 Old myocardial infarction; Z85.46 Personal history of malignant neoplasm of prostate; Z98.1 Arthrodesis status; Z95.0 Presence of cardiac pacemaker; Z79.899 Other long term (current) drug therapy; Z79.4 Long term (current) use of insulin; Z79.1 Long term (current) use of non-steroidal anti-inflammatories (NSAID); Z82.49 Family history of ischemic heart disease and other diseases of the circulatory system; Z80.9 Family history of malignant neoplasm, unspecified
CPT/HCPCS: 36415; 71045; 71275; 80048; 80061; 80076; 81001; 82550; 82553; 82962; 83036; 83735; 83880; 84439; 84443; 84481; 84484; 85025; 85027; 85379; 85610; 85730; 93005; 93010; 94640; 96374; 99285; J1644; J1815; J1940; J3490

== ENCOUNTER 2019-07-21 15:39 | Emergency (ER) | payer MEDICARE, OTHER ==
--- NOTE | 2019-07-21 15:47 | ER Document Report ---
ED Medical Screen (RME) - General Chief Complaint: Leg Pain Stated Complaint: LEG PAIN Time Seen by Provider: 07/21/19 15:42 Primary Care Provider: SHARATH ALVAREZ MD [Primary Care Provider] - Follow up as needed Information source: Patient Notes: Patient presents complaining of muscle spasms to left leg. Patient also complains of left hip pain. Patient states when he is sitting he is not having any lower extremity pain. Patient states when he stands he has pain and he is unable to walk. Symptoms started a few days ago. I have greeted and performed a rapid initial assessment of this patient. A comprehensive ED assessment and evaluation of the patient, analysis of test results and completion of the medical decision making process will be conducted by additional ED providers. TRAVEL OUTSIDE OF THE [place] IN LAST 30 DAYS: No - Related Data Allergies/Adverse Reactions: No Known Allergies Allergy (Verified 07/21/19 15:44) Past Medical History - Past Medical History Cardiac Medical History: Reports: Hx Congestive Heart Failure, Hx Coronary Artery Disease, Hx Heart Attack, Hx Hypercholesterolemia, Hx Hypertension Pulmonary Medical History: Reports: Hx COPD Denies: Hx Asthma, Hx Bronchitis, Hx Pneumonia Neurological Medical History: Denies: Hx Cerebrovascular Accident, Hx Seizures Endocrine Medical History: Reports: Hx Diabetes Mellitus Type 2, Hx Hyperthyroid ism. Denies: Hx Diabetes Mellitus Type 1, Hx Hypothyroidism Renal/ Medical History: Denies: Hx Peritoneal Dialysis GI Medical History: Denies: Hx Cirrhosis, Hx Crohn's Disease, Hx Hepatitis, Hx Ulcerative Colitis Musculoskeltal Medical History: Reports Hx Arthritis, Denies Hx Gout Skin Medical History: Denies Hx Eczema, Denies Hx Psoriasis Psychiatric Medical History: Denies: Hx Attention Deficit Hyperactivity Disorder, Hx Bipolar Disorder, Hx Dementia, Hx Depression Infectious Medical History: Denies: Hx Hepatitis Past Surgical History: Reports: Hx Appendectomy, Hx Cardiac Surgery - defibrillator, Hx Genitourinary Surgery - prostate ca surgery, Hx Orthopedic Surgery - Cervical spine fusion, Hx Pacemaker - Pacemaker defibrillator January 2018 - Immunizations Hx Diphtheria, Pertussis, Tetanus Vaccination: Yes Physical Exam - Extremities Hip: Tender - Left hip Doctor's Discharge - Discharge Referrals: SHARATH ALVAREZ MD [Primary Care Provider] - Follow up as needed
[2019-07-21 16:32] LABS: ANION GAP 8 (5-19); BLOOD UREA NITROGEN 40 mg/dL (7-20); CALCIUM 9.6 mg/dL (8.4-10.2); CARBON DIOXIDE 32 mmol/L (22-30); CHLORIDE 102 mmol/L (98-107); GLUCOSE 146 mg/dL (75-110); POTASSIUM 4.4 mmol/L (3.6-5.0)
[2019-07-21 16:42] LABS: ABSOLUTE BASOPHILS # (AUTO) 0.1 10^3/uL (0.0-0.2); ABSOLUTE EOSINOPHILS # (AUTO) 0.2 10^3/uL (0.0-0.6); ABSOLUTE LYMPHOCYTES (AUTO) 2.1 10^3/uL (0.5-4.7); ABSOLUTE MONOCYTES (AUTO) 0.6 10^3/uL (0.1-1.4); ABSOLUTE NEUT (AUTO) 2.7 10^3/uL (1.7-8.2); BASOPHILS % (AUTO) 1.1 % (0-2); EOSINOPHILS % (AUTO) 3.8 % (0-6); HEMOGLOBIN 13.1 g/dL (13.5-17.0); LYMPHOCYTES % (AUTO) 36.3 % (13-45); MEAN CORPUSCULAR HEMOGLOBIN 28.6 pg (27.0-33.4); MEAN CORPUSCULAR HGB CONC 32.6 g/dL (32.0-36.0); MEAN CORPUSCULAR VOLUME 88 fl (80-97); MONOCYTES % (AUTO) 10.9 % (3-13); PLATELET COUNT 140 10^3/uL (150-450); RED BLOOD COUNT 4.57 10^6/uL (4.35-5.55); RED CELL DISTRIBUTION WIDTH 18.3 % (11.5-14.0); SEGMENTED NEUTROPHILS % (AUTO) 47.9 % (42-78); TOTAL CELLS COUNTED % (AUTO) 100 %; WHITE BLOOD COUNT 5.7 10^3/uL (4.0-10.5)
--- NOTE | 2019-07-21 17:00 | RADIOLOGY REPORT (SQ) ---
EXAM DESCRIPTION: HIP LEFT AP/LATERAL COMPLETED DATE/TIME: 07/21/2019 4:17 pm REASON FOR STUDY: L hip pain COMPARISON: None. NUMBER OF VIEWS: Two views. TECHNIQUE: AP pelvis and additional frog-leg view of the left hip. LIMITATIONS: None. FINDINGS: MINERALIZATION: Normal. LEFT HIP: Degenerative changes of the left hip joint with narrowing noted superior laterally. RIGHT HIP: Degenerative changes of the right hip joint with narrowing superior laterally. PUBIS AND ISCHIUM: No fracture. PELVIS: Surgical clips in pelvis most likely from prostatectomy. Penile prosthesis. SACRUM: No fracture or dislocation. Degenerative sclerosis at right SI joint. LOWER LUMBAR SPINE: Lumbar spondylosis. SOFT TISSUES: No findings. OTHER: Atherosclerotic calcification abdominal aorta iliac and femoral vessels. IMPRESSION: Degenerative arthritis of the hips. Degenerative changes right SI joint. TECHNICAL DOCUMENTATION: JOB ID: [id number] [employer]- All Rights Reserved Reading location - IP/workstation name: [email or web address]
[2019-07-21 18:20] VITALS: BP 110/56
--- NOTE | 2019-09-03 12:06 | ER Document Report ---
Entered by FLORENCIO IBARRA SCRIBE 07/21/19 1718 Acting as scribe for:ABIGAIL NEVES MD ED Extremity Problem, Lower - General Chief Complaint: Leg Pain Stated Complaint: LEG PAIN Time Seen by Provider: 07/21/19 15:42 Primary Care Provider: SHARATH JESSICA MD [Primary Care Provider] - Follow up as needed Information source: Patient Notes: Patient is an 83 year old male that presents to the emergency department today with complaints of bilateral hip pain. Patient states that he has had this bilateral hip pain for x2-3 weeks. Patient states the pain radiates down his legs laterally down to the knees. Patient describes the pain as a "shocking feeling". Patient states he has absolutely no pain if he is sitting down, the pain begins when he stands. Patient was prescribed baclofen and gabapentin for this pain which he states has not changed it at all. Patient denies any trauma. TRAVEL OUTSIDE OF THE [place] IN LAST 30 DAYS: No - Related Data Allergies/Adverse Reactions: No Known Allergies Allergy (Verified 07/21/19 15:44) Home Medications: carvedilol. cetrizine. eliquis. furosemide. lisinopril. omeprazole. potassium chloride. pravastatin. prednisone. ranitidine. methimazole. tresiba. humalog. baclofen. gabapentin Past Medical History - General Information source: Patient - Social History Smoking Status: Current Every Day Smoker Cigarette use (# per day): Yes Chew tobacco use (# tins/day): No Frequency of alcohol use: None Drug Abuse: None Lives with: Family Family History: Hypertension, Malignancy Patient has suicidal ideation: No Patient has homicidal ideation: No - Past Medical History Cardiac Medical History: Reports: Hx Congestive Heart Failure, Hx Coronary Artery Disease, Hx Heart Attack, Hx Hypercholesterolemia, Hx Hypertension Pulmonary Medical History: Reports: Hx COPD Endocrine Medical History: Reports: Hx Diabetes Mellitus Type 2, Hx Hyperthyroidism Musculoskeletal Medical History: Reports Hx Arthritis Past Surgical History: Reports: Hx Appendectomy, Hx Cardiac Surgery - defib rillator, Hx Genitourinary Surgery - prostate ca surgery, Hx Orthopedic Surgery - Cervical spine fusion, Hx Pacemaker - Pacemaker defibrillator January 2018 - Immunizations Hx Diphtheria, Pertussis, Tetanus Vaccination: Yes Review of Systems - Review of Systems Constitutional: denies: Fever EENT: No symptoms reported Cardiovascular: No symptoms reported Respiratory: No symptoms reported Gastrointestinal: No symptoms reported Genitourinary: No symptoms reported Male Genitourinary: No symptoms reported Musculoskeletal: See HPI, Joint pain - complains of bilateral hip pain Skin: No symptoms reported Hematologic/Lymphatic: No symptoms reported Neurological/Psychological: No symptoms reported -: Yes All other systems reviewed and negative Physical Exam - Vital signs Vitals: Temp Pulse Resp BP Pulse Ox 98.2 F 76 16 113/61 100 07/21/19 15:39 07/21/19 15:39 07/21/19 15:39 07/21/19 15:39 07/21/19 15:39 - Notes Notes: Physical Exam: General: Alert, appears well. HEENT: Normocephalic. Atraumatic. PERRL. Extraocular movements intact. Oropharynx clear. Neck: Supple. Non-tender. Respiratory: No respiratory distress. Clear and equal breath sounds bilaterally. Cardiovascular: Regular rate and rhythm. Abdominal: Normal Inspection. Non-tender. No distension. Normal Bowel Sounds. Back: No gross abnormalities. Extremities: Moves all four extremities. Upper extremities: Normal inspection. Normal ROM. Lower extremities: Normal inspection. No edema. Normal ROM. Neurological: Normal cognition. AAOx4. Normal speech. Psychological: Normal affect. Normal Mood. Skin: Warm. Dry. Normal color. Course - Re-evaluation Re-evalutation: 07/21/19 17:58 Discussed x-ray with patient he has degenerative arthritis bilateral hips. Patient pain is nonexistent when lying down he does not have any back pain or hip pain. It only when he stands. Therefore, this seems mechanical in nature not vascular. He does not have any lower back pain although spinal stenosis could be in the differential. I discussed with him I will up his gabapentin he is only taking 100 mg twice daily. With his creatinine clearance will increase to 200 twice a day. He is also to take Tylenol every 6 hours. He is also to take 5-day Dosepak of prednisone to see if this helps of the symptoms. He is to follow-up with his PCP Dr. Jessica early next week for further evaluation consideration of lumbar spine imaging. The patient does have to use a walker and I asked him he felt safe to go home and he stated that he did. The patient agrees with this plan. Return precautions provided. 07/21/19 18:01 07/21/19 18:03 - Vital Signs Vital signs: Temp Pulse Resp BP Pulse Ox 98.2 F 76 16 113/61 100 07/21/19 15:39 07/21/19 15:39 07/21/19 15:39 07/21/19 15:39 07/21/19 15:39 - Laboratory Result Diagrams: 07/21/19 16:00 07/21/19 16:00 Laboratory results interpreted by me: 07/21/19 07/21/19 16:00 16:00 Hgb 13.1 L RDW 18.3 H Plt Count 140 L Carbon Dioxide 32 H BUN 40 H Creatinine 1.58 H Est GFR ( Amer) 51 L Est GFR (MDRD) Non-Af 42 L Glucose 146 H Discharge - Discharge Clinical Impression: Bilateral hip pain, Radiculopathy with lower extremity symptoms Condition: Good Disposition: HOME, SELF-CARE Additional Instructions: Please take 200 mg of gabapentin twice daily Please take 650 mg of Tylenol every 4-6 hours for pain Take steroids as prescribed Prescriptions: Prednisone [Deltasone 20 mg Tablet] 2 tab PO DAILY 5 Days #10 tablet Referrals: SHARATH JESSICA MD [Primary Care Provider] - Follow up as needed I personally performed the services described in the documentation, reviewed and edited the documentation which was dictated to the scribe in my presence, and it accurately records my words and actions.
== END 2019-07-21 18:32 | disposition home or self-care (01) ==
LOC: ER 15:39
DX: M25.552 Pain in left hip (principal); M25.551 Pain in right hip; M54.10 Radiculopathy, site unspecified; M79.605 Pain in left leg; M62.838 Other muscle spasm; R26.2 Difficulty in walking, not elsewhere classified; I50.9 Heart failure, unspecified; I25.10 Atherosclerotic heart disease of native coronary artery without angina pectoris; I25.2 Old myocardial infarction; E78.00 Pure hypercholesterolemia, unspecified; I11.0 Hypertensive heart disease with heart failure; E11.9 Type 2 diabetes mellitus without complications; Z95.810 Presence of automatic (implantable) cardiac defibrillator; Z98.1 Arthrodesis status
CPT/HCPCS: 36415; 80048; 85025; 99283

== ENCOUNTER 2019-08-24 17:55 | Emergency (ER) | payer MEDICARE ==
--- NOTE | 2019-08-24 18:24 | ER Document Report ---
ED Medical Screen (RME) - General Chief Complaint: Irregular Pulse Stated Complaint: PALPITATIONS Time Seen by Provider: 08/24/19 18:14 Primary Care Provider: SHARATH ALVAREZ MD [Primary Care Provider] - Follow up as needed Information source: Patient Notes: Patient presents complaining of shortness of breath and occasional lightheadedness. Patient states that his home health nurse noted his heart rate to range in the 20s to 70s. Patient denies having palpitations. Patient denies any chest pain, nausea or vomiting. hx: Pacemaker defibrillator, CHF, hypertension, diabetes, HI, COPD I have greeted and performed a rapid initial assessment of this patient. A comprehensive ED assessment and evaluation of the patient, analysis of test results and completion of the medical decision making process will be conducted by additional ED providers. TRAVEL OUTSIDE OF THE [place] IN LAST 30 DAYS: No - Related Data Allergies/Adverse Reactions: No Known Allergies Allergy (Verified 07/21/19 15:44) Past Medical History - Past Medical History Cardiac Medical History: Reports: Hx Congestive Heart Failure, Hx Coronary Artery Disease, Hx Heart Attack, Hx Hypercholesterolemia, Hx Hypertension Pulmonary Medical History: Reports: Hx COPD Denies: Hx Asthma, Hx Bronchitis, Hx Pneumonia Neurological Medical History: Denies: Hx Cerebrovascular Accident, Hx Seizures Endocrine Medical History: Reports: Hx Diabetes Mellitus Type 2, Hx Hyperthyroidism. Denies: Hx Diabetes Mellitus Type 1, Hx Hypothyroidism Renal/ Medical History: Denies: Hx Peritoneal Dialysis GI Medical History: Reports: Hx Gastroesophageal Reflux Disease. Denies: Hx Cirrhosis, Hx Crohn's Disease, Hx Hepatitis, Hx Ulcerative Colitis Musculoskeltal Medical History: Reports Hx Arthritis, Denies Hx Gout Skin Medical History: Denies Hx Eczema, Denies Hx Psoriasis Psychiatric Medical History: Denies: Hx Attention Deficit Hyperactivity Disorder, Hx Bipolar Disorder, Hx Dementia, Hx Depression Infectious Medical History: Denies: Hx Hepatitis Past Surgical History: Reports: Hx Appendectomy, Hx Cardiac Surgery - defibrillator, Hx Genitourinary Surgery - prostate ca surgery, Hx Orthopedic Surgery - Cervical spine fusion, Hx Pacemaker - Pacemaker defibrillator January 2018 - Immunizations Hx Diphtheria, Pertussis, Tetanus Vaccination: Yes Physical Exam - Vital signs Vitals: Temp Pulse Resp BP Pulse Ox 97.8 F 41 L 18 112/54 L 96 08/24/19 18:15 08/24/19 18:15 08/24/19 18:15 08/24/19 18:15 08/24/19 18:15 - General General appearance: Appears well, Alert Notes: Heart rate irregular Course - Vital Signs Vital signs: Temp Pulse Resp BP Pulse Ox 97.8 F 41 L 18 112/54 L 96 08/24/19 18:17 08/24/19 18:15 08/24/19 18:17 08/24/19 18:15 08/24/19 18:17 Doctor's Discharge - Discharge Referrals: SHARATH ALVAREZ MD [Primary Care Provider] - Follow up as needed
[2019-08-24 19:11] LABS: ABSOLUTE EOSINOPHILS # (AUTO) 0.1 10^3/uL (0.0-0.6); ABSOLUTE MONOCYTES (AUTO) 0.5 10^3/uL (0.1-1.4); ABSOLUTE NEUT (AUTO) 3.3 10^3/uL (1.7-8.2); BASOPHILS % (AUTO) 0.8 % (0-2); EOSINOPHILS % (AUTO) 2.4 % (0-6); HEMATOCRIT 39.1 % (37.9-51.0); HEMOGLOBIN 13.1 g/dL (13.5-17.0); LYMPHOCYTES % (AUTO) 32.7 % (13-45); MEAN CORPUSCULAR HEMOGLOBIN 29.6 pg (27.0-33.4); MEAN CORPUSCULAR HGB CONC 33.5 g/dL (32.0-36.0); MEAN CORPUSCULAR VOLUME 88 fl (80-97); PLATELET COUNT 159 10^3/uL (150-450); RED BLOOD COUNT 4.44 10^6/uL (4.35-5.55); RED CELL DISTRIBUTION WIDTH 17.5 % (11.5-14.0); SEGMENTED NEUTROPHILS % (AUTO) 55.1 % (42-78); TOTAL CELLS COUNTED % (AUTO) 100 %
[2019-08-24 19:26] LABS: ALBUMIN 3.8 g/dL (3.5-5.0); ALKALINE PHOSPHATASE 89 U/L (38-126); ANION GAP 11 (5-19); ASPARTATE AMINO TRANSFERASE 26 U/L (17-59); BILIRUBIN,DIRECT 0.1 mg/dL (0.0-0.4); BILIRUBIN,TOTAL 0.5 mg/dL (0.2-1.3); BLOOD UREA NITROGEN 36 mg/dL (7-20); CALCIUM 9.7 mg/dL (8.4-10.2); CARBON DIOXIDE 35 mmol/L (22-30); CHLORIDE 96 mmol/L (98-107); GLUCOSE 272 mg/dL (75-110); POTASSIUM 3.9 mmol/L (3.6-5.0); TOTAL PROTEIN 7.2 g/dL (6.3-8.2)
--- NOTE | 2019-08-24 19:29 | RADIOLOGY REPORT (SQ) ---
EXAM DESCRIPTION: CHEST 2 VIEWS COMPLETED DATE/TIME: 08/24/2019 7:19 pm REASON FOR STUDY: sob, irreg HR COMPARISON: 04/18/2019 TECHNIQUE: Frontal and lateral radiographic views of the chest acquired. NUMBER OF VIEWS: Two view. LIMITATIONS: None. FINDINGS: LUNGS AND PLEURA: No pneumothorax. No consolidation or pleural effusion. MEDIASTINUM AND HILAR STRUCTURES: Stable. HEART AND VASCULAR STRUCTURES: Stable. BONES: No acute findings. HARDWARE: Cardiac defibrillator. OTHER: No other significant finding. IMPRESSION: NO ACUTE FINDINGS. TECHNICAL DOCUMENTATION: JOB ID: [id number] [place]-72 2010 [employer]- All Rights Reserved Reading location - IP/workstation name: [email or web address]
[2019-08-24 19:44] LABS: TROPONIN I 0.037 ng/mL
--- NOTE | 2019-08-24 21:53 | EKG REPORT ---
SEVERITY:- ABNORMAL ECG - ATRIAL-SENSED VENTRICULAR-PACED RHYTHM : Confirmed by: Gage Michael MD 24-Aug-2019 21:53:12
--- NOTE | 2019-08-25 00:47 | ER Document Report ---
ED General - General Chief Complaint: Irregular Pulse Stated Complaint: PALPITATIONS Time Seen by Provider: 08/24/19 18:14 Primary Care Provider: SHARTAH ALVAREZ MD [Primary Care Provider] - Follow up as needed Information source: Patient Notes: 83-year-old male presents emergency department with a history of seen by the home health nurse this morning and sent to the emergency department because of irregular pulse. Patient denies symptoms, he denies shortness of breath, chest pain, or palpitations. TRAVEL OUTSIDE OF THE [place] IN LAST 30 DAYS: No - Related Data Allergies/Adverse Reactions: No Known Allergies Allergy (Verified 08/24/19 18:45) Past Medical History - General Information source: Patient - Social History Smoking Status: Never Smoker Family History: Hypertension, Malignancy. denies: CAD, DM Patient has suicidal ideation: No Patient has homicidal ideation: No - Past Medical History Cardiac Medical History: Reports: Hx Congestive Heart Failure, Hx Coronary Artery Disease, Hx Heart Attack, Hx Hypercholesterolemia, Hx Hypertension Pulmonary Medical History: Reports: Hx COPD Denies: Hx Asthma, Hx Bronchitis, Hx Pneumonia Neurological Medical History: Denies: Hx Cerebrovascular Accident, Hx Seizures Endocrine Medical History: Reports: Hx Diabetes Mellitus Type 2, Hx Hyperthyroidism. Denies: Hx Diabetes Mellitus Type 1, Hx Hypothyroidism Renal/ Medical History: Denies: Hx Peritoneal Dialysis GI Medical History: Reports: Hx Gastroesophageal Reflux Disease. Denies: Hx Cirrhosis, Hx Crohn's Disease, Hx Hepatitis, Hx Ulcerative Colitis Musculoskeletal Medical History: Reports Hx Arthritis, Denies Hx Gout Skin Medical History: Denies Hx Eczema, Denies Hx Psoriasis Psychiatric Medical History: Denies: Hx Attention Deficit Hyperactivity Disorder, Hx Bipolar Disorder, Hx Dementia, Hx Depression Infectious Medical History: Denies: Hx Hepatitis Past Surgical History: Reports: Hx Appendectomy, Hx Cardiac Surgery - def ibrillator, Hx Genitourinary Surgery - prostate ca surgery, Hx Orthopedic Surgery - Cervical spine fusion, Hx Pacemaker - Pacemaker defibrillator January 2018 - Immunizations Hx Diphtheria, Pertussis, Tetanus Vaccination: Yes Review of Systems - Review of Systems Notes: Constitutional: Negative for fever. HENT: Negative for sore throat. Eyes: Negative for visual changes. Cardiovascular: Negative for chest pain. Respiratory: Negative for shortness of breath. Gastrointestinal: Negative for abdominal pain, vomiting or diarrhea. Genitourinary: Negative for dysuria. Musculoskeletal: Negative for back pain. Skin: Negative for rash. Neurological: Negative for headaches, weakness or numbness. 10 point ROS negative except as marked above and in HPI. Physical Exam - Vital signs Vitals: Temp Pulse Resp BP Pulse Ox 97.8 F 41 L 18 112/54 L 96 08/24/19 18:15 08/24/19 18:15 08/24/19 18:15 08/24/19 18:15 08/24/19 18:15 - Notes Notes: PHYSICAL EXAMINATION: Physical Exam: General: Well-nourished well-developed elderly male in no acute distress HEENT: NC/AT, pupils equal round and reactive to light, MM moist,nares clear, Neck: supple, no adenopathy, no masses. Lungs: clear, no wheezing, no rales no rhonchi CVS: Regular rate and rhythm no murmur gallop or rub Abdomen: Soft active nontender, no masses, no hepatosplenomegaly Ext: 2+ edema bilaterally in the lower extremities Neuro: Alert and responsive, moving all 4 extremities on command, cranial nerves intact. Skin: Intact no open lesions, no rash Course - Vital Signs Vital signs: Temp Pulse Resp BP Pulse Ox 97.9 F 41 L 18 125/78 100 08/24/19 19:20 08/24/19 18:15 08/24/19 22:00 08/24/19 22:00 08/24/19 22:00 - Laboratory Result Diagrams: 08/24/19 18:45 08/24/19 18:45 Laboratory results interpreted by me: 08/24/19 08/24/19 08/24/19 18:45 18:45 18:45 Hgb 13.1 L RDW 17.5 H Chloride 96 L Carbon Dioxide 35 H BUN 36 H Creatinine 1.79 H Est GFR ( Amer) 44 L Est GFR (MDRD) Non-Af 36 L Glucose 272 H POC Glucose NT-Pro-B Natriuret Pep 7550 H 08/24/19 19:35 Hgb RDW Chloride Carbon Dioxide BUN Creatinine Est GFR ( Amer) Est GFR (MDRD) Non-Af Glucose POC Glucose 240 H NT-Pro-B Natriuret Pep 08/25/19 00:44 I have reviewed laboratory data and used this information for the treatment decisions regarding the patient. - Diagnostic Test Radiology reviewed: Image reviewed, Reports reviewed - Chest x-ray: No acute findings. - EKG Interpretation by Me Additional EKG results interpreted by me: 08/25/19 00:52 EKG: Paced rhythm, 86 bpm Discharge - Discharge Clinical Impression: Pacemaker, AICD (automatic cardioverter/defibrillator) present Congestive heart failure (CHF) Qualifiers: Heart failure type: other Qualified Code(s): I50.9 - Heart failure, unspecified Cardiomyopathy Qualifiers: Cardiomyopathy type: unspecified Qualified Code(s): I42.9 - Cardiomyopathy, unspecified Condition: Fair Disposition: HOME, SELF-CARE Instructions: Palpitations (Irregular or Rapid Heartrate) ([facility]) Additional Instructions: Please continue your usual medications, follow-up with the home health nursing return to the emergency department if needed. Referrals: SHARATH ALVAREZ MD [Primary Care Provider] - Follow up as needed
[2019-08-25 01:24] VITALS: BP 122/71
== END 2019-08-25 01:24 | disposition home or self-care (01) ==
LOC: ER 17:55
DX: I42.9 Cardiomyopathy, unspecified (principal); I50.9 Heart failure, unspecified; R00.2 Palpitations; I11.0 Hypertensive heart disease with heart failure; E78.00 Pure hypercholesterolemia, unspecified; I25.2 Old myocardial infarction; J44.9 Chronic obstructive pulmonary disease, unspecified; E11.9 Type 2 diabetes mellitus without complications; Z95.810 Presence of automatic (implantable) cardiac defibrillator; Z98.1 Arthrodesis status
CPT/HCPCS: 36415; 71046; 80053; 82962; 83735; 83880; 84484; 85025; 93005; 93010; 99285

== ENCOUNTER 2019-11-04 22:58 | Observation (INO) | payer MEDICARE, OTHER ==
--- NOTE | 2019-11-05 00:25 | ER Document Report ---
ED Medical Screen (RME) - General Chief Complaint: Shoulder Pain Stated Complaint: FALL-SHOULDER AND BACK PAIN Time Seen by Provider: 11/05/19 00:13 Primary Care Provider: SHARATH ALVAREZ MD [Primary Care Provider] - Follow up as needed TRAVEL OUTSIDE OF THE [place] IN LAST 30 DAYS: No - HPI Notes: 11/05/19 00:23 83-year-old male to the emergency department with complaints of a fall and right scapular pain that occurred just prior to arrival. He states he was sitting in his kitchen and decided he is getting get up and go take a shower. He states that the next thing he remembers his being on the floor and asking his if he is in bed. His states that she found him laying completely on his back in the kitchen. He thinks that he may have had a syncopal episode. He denies any chest pain, abdominal pain, headache. He also denies any prodrome. He thinks maybe "my blood was off". He does have a history of congestive heart failure and does have an AICD. He states he does not think that his device fired. His gas welder is Dr. Mora. He admits that he has a little bit of shortness of breath since the incident. He denies any other symptoms. He is on Eliquis. I performed a brief medical screening exam on the patient determined that the patient needs further evaluation and management by main side provider. I have placed initial orders to help expedite care. - Related Data Allergies/Adverse Reactions: No Known Allergies Allergy (Verified 08/24/19 18:45) Past Medical History - Past Medical History Cardiac Medical History: Reports: Hx Congestive Heart Failure, Hx Coronary Artery Disease, Hx Heart Attack, Hx Hypercholesterolemia, Hx Hypertension Pulmonary Medical History: Reports: Hx COPD Denies: Hx Asthma, Hx Bronchitis, Hx Pneumonia Neurological Medical History: Denies: Hx Cerebrovascular Accident, Hx Seizures Endocrine Medical History: Reports: Hx Diabetes Mellitus Type 2, Hx Hyperthyroidism. Denies: Hx Diabetes Mellitus Type 1, Hx Hypothyroidism Renal/ Medical History: Denies: Hx Peritoneal Dialysis GI Medical History: Reports: Hx Gastroesophageal Reflux Disease. Denies: Hx Cirrhosis, Hx Crohn's Disease, Hx Hepatitis, Hx Ulcerative Colitis Musculoskeltal Medical History: Reports Hx Arthritis, Denies Hx Gout Skin Medical History: Denies Hx Eczema, Denies Hx Psoriasis Psychiatric Medical History: Denies: Hx Attention Deficit Hyperactivity Disorder, Hx Bipolar Disorder, Hx Dementia, Hx Depression Infectious Medical History: Denies: Hx Hepatitis Past Surgical History: Reports: Hx Appendectomy, Hx Cardiac Surgery - defibrillator, Hx Genitourinary Surgery - prostate ca surgery, Hx Orthopedic Surgery - Cervical spine fusion, Hx Pacemaker - Pacemaker defibrillator January 2018 - Immunizations Hx Diphtheria, Pertussis, Tetanus Vaccination: No Physical Exam - Vital signs Vitals: Temp Pulse Resp BP Pulse Ox 97.5 F 95 20 135/78 H 93 11/04/19 23:14 11/04/19 23:14 11/04/19 23:14 11/04/19 23:14 11/04/19 23:14 Course - Vital Signs Vital signs: Temp Pulse Resp BP Pulse Ox 97.5 F 95 20 135/78 H 93 11/04/19 23:14 11/04/19 23:14 11/04/19 23:14 11/04/19 23:14 11/04/19 23:14 Doctor's Discharge - Discharge Referrals: SHARATH ALVAREZ MD [Primary Care Provider] - Follow up as needed
--- NOTE | 2019-11-05 01:36 | RADIOLOGY REPORT (SQ) ---
EXAM DESCRIPTION: CT HEAD WITHOUT IV CONTRAST COMPLETED DATE/TME: 11/05/2019 00:21 CLINICAL HISTORY: syncope, on blood thinner, head injury COMPARISON: 01/12/2019 TECHNIQUE: Axial CT of the head obtained from the skull apex to the skull base without contrast. FINDINGS: No acute intracranial hemorrhage identified. No mass, mass effect, shift of the midline, abnormal extra-axial fluid collection or CT evidence of acute ischemic change identified. The ventricular system and sulcal spaces are age appropriate. Scattered areas of hypodensity throughout the supratentorial white matter are nonspecific and may be related to chronic small vessel ischemic change. Coastal thickening of the paranasal sinuses. Mastoid air cells are well aerated. No skull fracture identified. Visualized orbits and globes are unremarkable. Atherosclerotic calcification of the intracranial internal carotid arteries. IMPRESSION: 1. No acute intracranial abnormality by CT criteria. This exam was performed according to our departmental dose-optimization program, which includes automated exposure control, adjustment of the mA and/or kV according to patient size and/or use of iterative reconstruction technique.
--- NOTE | 2019-11-05 01:46 | RADIOLOGY REPORT (SQ) ---
EXAM DESCRIPTION: XR CHEST 2 VIEWS COMPLETED DATE/TME: 11/05/2019 00:21 CLINICAL HISTORY: 83 years Male syncope COMPARISON: 08/24/2019. FINDINGS: Cardiac enlargement. Pulmonary hyperinflation. No evidence of acute consolidation. Pacemaker in place. Degenerative changes in the spine. Degenerative changes in the shoulders. IMPRESSION: Cardiac enlargement and COPD without evidence of acute process
--- NOTE | 2019-11-05 01:57 | RADIOLOGY REPORT (SQ) ---
RIGHT SCAPULA RADIOGRAPHS: 11/05/2019 12:55 AM [employer]IAN TECHNIQUE: AP and lateral images of the right scapula were obtained. COMPARISON: None available HISTORY: 83-year old patient with right shoulder pain. FINDINGS: The visualized portions of the right hemithorax appear unremarkable. The left acromioclavicular joint demonstrates mild degenerative spurring. There are no findings to suggest an acute fracture of the right scapula. The visualized portions of the right clavicle demonstrate no evidence of an acute fracture. The visualized soft tissues appear unremarkable. IMPRESSION: There are no findings to suggest an acute fracture of the right scapula.
[2019-11-05 02:22] LABS: APPEARANCE,URINE CLEAR; BILIRUBIN,URINE NEGATIVE (NEGATIVE); COLOR,URINE STRAW; GLUCOSE, URINE NEGATIVE (NEGATIVE); KETONES,URINE NEGATIVE (NEGATIVE); LEUKOCYTE ESTERASE,URINE NEGATIVE (NEGATIVE); NITRITE,URINE NEGATIVE (NEGATIVE); PROTEIN,URINE 30 mg/dL (NEGATIVE); UROBILINOGEN,URINE NEGATIVE mg/dL (<2.0)
[2019-11-05] MEDS ORDERED: MORPHINE SULFATE 10 MG/ML INJ IV ONE (06:29)
[2019-11-05] MEDS ORDERED: ONDANSETRON HCL INJ/PF 4 MG/2 ML SDV IV ONE (06:30)
--- NOTE | 2019-11-05 06:34 | ER Document Report ---
ED General - General Chief Complaint: Fall Injury Stated Complaint: FALL-SHOULDER AND BACK PAIN Time Seen by Provider: 11/05/19 00:13 Primary Care Provider: SHARATH ALVAREZ MD [Primary Care Provider] - Follow up as needed TRAVEL OUTSIDE OF THE [place] IN LAST 30 DAYS: No - HPI Notes: Patient is an 83-year-old male who presents to the emergency department for evaluation of a syncopal episode. He was sitting in his kitchen table. He states he started feeling dizzy. He states the next thing he knew he woke on the floor. heard the thud of the fall, came to check on him. She states he was laying flat on his back. He woke up, but was very confused for about a minute. He was nearly back to baseline following that. The patient complains of pain that he rates an 8 out of 10 in his right posterior shoulder. He denies any other pain. He had remarked earlier to triage provider that he was feeling slightly short of breath, he denies that at this point. His only complaint now is that he is tired. - Related Data Allergies/Adverse Reactions: No Known Allergies Allergy (Verified 08/24/19 18:45) Home Medications: Baclofen. carvedilol. cetirizine. furosemide. Ranitidine. Pravastatin. Potassium. omeprazole. Methimazole Past Medical History - General Information source: Patient, Relative - Social History Smoking Status: Current Every Day Smoker Chew tobacco use (# tins/day): No Frequency of alcohol use: None Drug Abuse: None Family History: Hypertension, Malignancy Patient has suicidal ideation: No Patient has homicidal ideation: No - Past Medical History Cardiac Medical History: Reports: Hx Congestive Heart Failure, Hx Coronary Artery Disease, Hx Heart Attack, Hx Hypercholesterolemia, Hx Hypertension Pulmonary Medical History: Reports: Hx COPD Denies: Hx Asthma, Hx Bronchitis, Hx Pneumonia Neurological Medical History: Denies: Hx Cerebrovascular Accident, Hx Seizures Endocrine Medical History: Reports: Hx Diabetes Mellitus Type 2, Hx Hyperthyroidism. Denies: Hx Diabetes Mellitus Type 1, Hx Hypothyroidism Renal/ Medical History: Denies: Hx Peritoneal Dialysis GI Medical History: Reports: Hx Gastroesophageal Reflux Disease. Denies: Hx Cirrhosis, Hx Crohn's Disease, Hx Hepatitis, Hx Ulcerative Colitis Musculoskeletal Medical History: Reports Hx Arthritis, Denies Hx Gout Skin Medical History: Denies Hx Eczema, Denies Hx Psoriasis Psychiatric Medical History: Denies: Hx Attention Deficit Hyperactivity Disorder, Hx Bipolar Disorder, Hx Dementia, Hx Depression Infectious Medical History: Denies: Hx Hepatitis Past Surgical History: Reports: Hx Appendectomy, Hx Cardiac Surgery - defibrillator, Hx Genitourinary Surgery - prostate ca surgery, Hx Orthopedic Surgery - Cervical spine fusion, Hx Pacemaker - Pacemaker defibrillator January 2018 - Immunizations Hx Diphtheria, Pertussis, Tetanus Vaccination: No Hx Pneumococcal Vaccination: 07/13/17 Review of Systems - Review of Systems Constitutional: See HPI Cardiovascular: See HPI Musculoskeletal: See HPI -: Yes All other systems reviewed and negative Physical Exam - Vital signs Vitals: Temp Pulse BP Pulse Ox 97.5 F 88 135/78 H 94 11/04/19 23:11 11/04/19 23:11 11/04/19 23:11 11/04/19 23:11 - Notes Notes: This is an 83-year-old male who appears his stated age in no acute distress. Vital signs reviewed, please refer to chart. Head is normocephalic, atraumatic. Pupils equal round, reactive to light. Neck is supple without meningismus. Heart is regular rate and rhythm. Lungs are clear to auscultation bilaterally. Examination of the right shoulder yields no obvious deformity. He has full active and passive range of motion, although it does elicit some pain. He is tender over the right scapular spine without obvious deformity. Abdomen is soft, nontender, normoactive bowel sounds throughout. Extremities without cya nosis, clubbing. He has 3+ pretibial edema bilaterally. Posterior calves are nontender. Peripheral pulses are equal. Skin is warm and dry. Patient is awake, alert, oriented x3. Cranial nerves II - XII are grossly intact without focal neurological deficits. Strength is plus 5 out of 5 bilateral upper and lower extremities. Sensation is intact. Reflexes symmetrical. Intact [id number], rapid alternating movements, [id number]. Course - Re-evaluation Re-evalutation: 11/05/19 06:33 Patient presents to the emergency department for evaluation. He is had a syncopal episode. His neurological exam is normal. He does have a pacer/defibrillator. Order was placed for this to be interrogated. Unfortunately overnight they had some difficulty obtaining this patient's blood. It is now in the lab, pending at this time. Patient is given morphine and Zofran for his shoulder pain. X-rays were reviewed and found to be unremarkable. We will continue to monitor. 11/05/19 09:09 AICD/pacemaker interrogation revealed ventricular fibrillation. The patient did receive a shock at 41 J. I spoke with his sourcing intern, Dr. Mora, who came to the department and evaluated the patient. He believes the patient should be admitted, have serial cardiac enzymes, and be followed in the hospital. Consult order was placed. Patient remained stable at this time. I did add a magnesium level given his ventricular fibrillation, it is pending. Awaiting phone call from Dr. Fermin for admission. - Vital Signs Vital signs: Temp Pulse Resp BP Pulse Ox 98.5 F 85 13 134/64 H 96 11/05/19 02:39 11/05/19 02:39 11/05/19 08:01 11/05/19 08:01 11/05/19 08:01 - Laboratory Result Diagrams: 11/05/19 06:15 11/05/19 06:15 Laboratory results interpreted by me: 11/05/19 11/05/19 11/05/19 01:52 06:15 06:15 Hgb 13.4 L RDW 17.4 H Carbon Dioxide 33 H BUN 37 H Creatinine 1.63 H Est GFR ( Amer) 49 L Est GFR (MDRD) Non-Af 40 L Glucose 176 H ALT 52 H Urine Protein 30 H Urine Blood MODERATE H - Diagnostic Test Radiology reviewed: Reports reviewed Radiology results interpreted by me: 11/05/19 06:34 Chest X-Ray 11/05/19 00:21 IMPRESSION: Cardiac enlargement and COPD without evidence of acute process Head CT 11/05/19 00:21 IMPRESSION: 1. No acute intracranial abnormality by CT criteria. This exam was performed according to our departmental dose-optimization program, which includes automated exposure control, adjustment of the mA and/or kV according to patient size and/or use of iterative reconstruction technique. Scapula X-Ray 11/05/19 00:21 IMPRESSION: There are no findings to suggest an acute fracture of the right scapula. - EKG Interpretation by Me Additional EKG results interpreted by me: 11/05/19 06:34 Atrial sensed ventricular pacing at 91 bpm. No change from prior study. Discharge - Discharge Clinical Impression: Elevated troponin, Ventricular fibrillation Condition: Stable Disposition: ADMITTED INPATIENT Admitting Provider: Zander (Hospitalist) Unit Admitted: IMCU Referrals: SHARATH ALVAREZ MD [Primary Care Provider] - Follow up as needed
[2019-11-05 06:51] LABS: ABSOLUTE BASOPHILS # (AUTO) 0.1 10^3/uL (0.0-0.2); ABSOLUTE EOSINOPHILS # (AUTO) 0.1 10^3/uL (0.0-0.6); ABSOLUTE LYMPHOCYTES (AUTO) 1.6 10^3/uL (0.5-4.7); ABSOLUTE MONOCYTES (AUTO) 0.7 10^3/uL (0.1-1.4); ABSOLUTE NEUT (AUTO) 4.8 10^3/uL (1.7-8.2); BASOPHILS % (AUTO) 0.8 % (0-2); EOSINOPHILS % (AUTO) 0.9 % (0-6); HEMATOCRIT 39.1 % (37.9-51.0); HEMOGLOBIN 13.4 g/dL (13.5-17.0); LYMPHOCYTES % (AUTO) 22.2 % (13-45); MEAN CORPUSCULAR HEMOGLOBIN 30.4 pg (27.0-33.4); MEAN CORPUSCULAR HGB CONC 34.4 g/dL (32.0-36.0); MEAN CORPUSCULAR VOLUME 89 fl (80-97); MONOCYTES % (AUTO) 9.4 % (3-13); PLATELET COUNT 151 10^3/uL (150-450); RED BLOOD COUNT 4.42 10^6/uL (4.35-5.55); RED CELL DISTRIBUTION WIDTH 17.4 % (11.5-14.0); SEGMENTED NEUTROPHILS % (AUTO) 66.7 % (42-78); TOTAL CELLS COUNTED % (AUTO) 100 %; WHITE BLOOD COUNT 7.2 10^3/uL (4.0-10.5)
[2019-11-05 07:12] LABS: ALBUMIN 3.8 g/dL (3.5-5.0); ALKALINE PHOSPHATASE 103 U/L (38-126); ANION GAP 6 (5-19); ASPARTATE AMINO TRANSFERASE 33 U/L (17-59); BILIRUBIN,TOTAL 1.1 mg/dL (0.2-1.3); BLOOD UREA NITROGEN 37 mg/dL (7-20); CALCIUM 9.7 mg/dL (8.4-10.2); CARBON DIOXIDE 33 mmol/L (22-30); CHLORIDE 102 mmol/L (98-107); GLUCOSE 176 mg/dL (75-110); POTASSIUM 4.4 mmol/L (3.6-5.0); TOTAL PROTEIN 6.8 g/dL (6.3-8.2)
--- NOTE | 2019-11-05 08:26 | EKG REPORT ---
SEVERITY:- ABNORMAL ECG - ATRIAL-SENSED VENTRICULAR-PACED RHYTHM : Confirmed by: Maria L Esqueda 05-Nov-2019 08:25:27
--- NOTE | 2019-11-05 09:32 | PDOC CONSULTATION ---
Consultation Consult Date: 11/05/19 Provider Consulted: DERRELL CABALLERO Consult reason:: Syncope History of Present Illness Admission Date/PCP: SHARATH ALVAREZ MD Patient complains of: Back pain and passing out. History of Present Illness: ABIGAIL BOUDREAUX is a 83 year old male with history of remote MD in , hypertension, COPD, hypertension,DM, hyperlipidemia, COPD, diabetes, atrial fibrillation s/p ALBERT guided cardioversion on 04/23/19 successfully, tobacco use, non-ischemic CM, HFrEF with multiple exacerbations requiring hospitalizations secondary to dietary indiscretions who is consulted to me in the ED for evaluation of syncope. The patient had been in his usual state of health until yesterday when he developed dizziness and lightheadedness which was followed by a syncopal event. His states that she was in the bedroom when she heard a t hud and ran to the patient finding him on his back on the floor. His eyes were opened but he was not able to answer questions appropriately therefore he was brought to the ED via ambulance. His ICD was interrogated demonstrating episodes of VT and one episode of VF that was terminated with one shock at 41J. The patient is found in the bed in the ER only complaining of back pain. He specifically denies CP, shortness of breath, PND, palpitations and recurrence of syncope. He does admit LE edema as well as occasionally "cheating on my diet". Echocardiogram in March 2019 at [facility]. -Severe LVE. -Mild concentric LVH. -EF 15-20%. -Severe global hypokinesis. -RV systolic function moderately to severely reduced. -Moderate biatrial enlargement. -Severe MR, moderate TR, trace AI. -Moderate pulmonary hypertension. [facility] on 02/10/17: -Left main: Widely patent. -LAD: Patent. -Left circumflex: Patent. -RCA: Patent. Past Medical History Medical History: Other - Atrial fibrillation Cardiac Medical History: Reports: Congestive Heart Failure, Coronary Artery Disease, Myocardial Infarction, Hyperlipidema, Hypertension Pulmonary Medical History: Reports: Chronic Obstructive Pulmonary Disease (COPD) Denies: Asthma, Bronchitis, Pneumonia Neurological Medical History: Denies: Seizures Endocrine Medical History: Reports: Diabetes Mellitus Type 2, Hyperthyroidism Denies: Diabetes Mellitus Type 1, Hypothyroidism GI Medical History: Reports: Gastroesophageal Reflux Disease Denies: Cirrhosis, Crohn's Disease, Hepatitis, Ulcerative Colitis Musculoskeltal Medical History: Reports: Arthritis Denies: Gout Skin Medical History: Denies: Eczema, Psoriasis Psychiatric Medical History: Denies: Attention Deficit Hyperactivity Disorder, Bipolar Disorder, Dementia, Depression Hematology: Denies: Anemia, Sickle Cell Disease, Bleeding Tendencies Past Surgical History Past Surgical History: Reports: Appendectomy, Orthopedic Surgery - Cervical spine fusion, Pacemaker - Pacemaker defibrillator January 2018 Social History Smoking Status: Current Every Day Smoker Electronic Cigarette use?: No Frequency of Alcohol Use: None Hx Recreational Drug Use: No Drugs: None Hx Prescription Drug Abuse: No Family History Family History: Hypertension, Malignancy Parental Family History Reviewed: Yes Children Family History Reviewed: Yes Sibling(s) Family History Reviewed.: Yes Medication/Allergy Allergies/Adverse Reactions: No Known Allergies Allergy (Verified 08/24/19 18:45) Review of Systems Constitutional: PRESENT: as per HPI Eyes: PRESENT: as per HPI Ears: PRESENT: as per HPI Nose, Mouth, and Throat: PRESENT: as per HPI Cardiovascular: ABSENT: chest pain, dyspnea on exertion, edema, orthropnea, palpitations Respiratory: ABSENT: cough, hemoptysis Gastrointestinal: PRESENT: as per HPI Genitourinary: ABSENT: dysuria, hematuria Musculoskeletal: PRESENT: as per HPI Integumentary: PRESENT: as per HPI Neurological: ABSENT: abnormal gait, abnormal speech, confusion, dizziness, focal weakness, syncope Psychiatric: ABSENT: anxiety, depression, homidical ideation, suicidal ideation Endocrine: ABSENT: cold intolerance, heat intolerance, polydipsia, polyuria Hematologic/Lymphatic: ABSENT: easy bleeding, easy bruising Physical Exam Vital Signs: Temp Pulse Resp BP Pulse Ox 98.5 F 85 13 134/64 H 96 11/05/19 02:39 11/05/19 02:39 11/05/19 08:01 11/05/19 08:01 11/05/19 08:01 Intake & Output 11/04/19 11/05/19 11/06/19 06:59 06:59 06:59 Weight 77 kg General appearance: PRESENT: no acute distress, cooperative, disheveled, well- developed, well-nourished Head exam: PRESENT: atraumatic, normocephalic Eye exam: PRESENT: conjunctiva pink, EOMI, PERRLA. ABSENT: scleral icterus Neck exam: ABSENT: carotid bruit, JVD, lymphadenopathy, thyromegaly Respiratory exam: PRESENT: clear to auscultation christin. ABSENT: crackles, rales, rhonchi, wheezes Cardiovascular exam: PRESENT: RRR. ABSENT: diastolic murmur, gallop Pulses: PRESENT: normal dorsalis pedis pul Extremities exam: PRESENT: +2 edema Results Laboratory Results: 11/05/19 06:15 11/05/19 06:15 11/05/19 11/05/19 11/05/19 01:52 06:15 06:15 WBC 7.2 RBC 4.42 Hgb 13.4 L Hct 39.1 MCV 89 MCH 30.4 MCHC 34.4 RDW 17.4 H Plt Count 151 Seg Neutrophils % 66.7 Sodium 141.4 Potassium 4.4 Chloride 102 Carbon Dioxide 33 H Anion Gap 6 BUN 37 H Creatinine 1.63 H Est GFR ( Amer) 49 L Glucose 176 H Calcium 9.7 Total Bilirubin 1.1 AST 33 Alkaline Phosphatase 103 Total Protein 6.8 Albumin 3.8 Urine Color STRAW Urine Appearance CLEAR Urine pH 5.0 Ur Specific [place] 1.010 Urine Protein 30 H Urine Glucose (UA) NEGATIVE Urine Ketones NEGATIVE Urine Blood MODERATE H Urine Nitrite NEGATIVE Ur Leukocyte Esterase NEGATIVE Urine WBC (Auto) 0 Urine RBC (Auto) 2 11/05/19 06:15 Troponin I 0.056 Impressions: Chest X-Ray 11/05/19 00:21 IMPRESSION: Cardiac enlargement and COPD without evidence of acute process Head CT 11/05/19 00:21 IMPRESSION: 1. No acute intracranial abnormality by CT criteria. This exam was performed according to our departmental dose-optimization program, which includes automated exposure control, adjustment of the mA and/or kV according to patient size and/or use of iterative reconstruction technique. Scapula X-Ray 11/05/19 00:21 IMPRESSION: There are no findings to suggest an acute fracture of the right scapula. Assessment & Plan - Diagnosis (1) Syncope and collapse Is this a current diagnosis for this admission?: Yes Plan: The patient had a syncopal event related to ventricular fibrillation which was terminated by one shock at 41J by his defibrillator. RECOMMENDATIONS: -Admit to hospital. -Initiate full w/u to assess for possible reversible causes of VF. -Will continue to follow up with you. (2) Ventricular fibrillation Is this a current diagnosis for this admission?: Yes Plan: Likely secondary to his underlying severe non-ischemic CM. The patient denied ischemic symptoms therefore I don't believe this is secondary to cardiac isch emia as demonstrated by no obstructive CAD on LHC in February 2017. His elevated troponin is likely from his heart failure, renal dysfunction,VF and defibrillation. RECOMMENDATIONS: -Continue with carvedilol 3.125 mg bid for now and titrate it up to 6.25 mg bid as tolerated by his BP. -Continue with cardiac enzymes. -S/L NTG if chest pain develops. -Cardiac telemetry. -Will consider adding antiarrhythmic therapy in the next 24-48 hours. -Echocardiogram. (3) Acute on chronic systolic (congestive) heart failure Plan: Even though the patient is asymptomatic he does have LE edema which actually looks as his baseline. His dry weight is around 160 pounds as outpatient. RECOMMENDATIONS: -Continue with current outpatient medications. -Strict intake and output. -Daily weight. -Limit daily fluids to 2000 ml. -Low sodium diet. -Repeat echocardiogram. (4) Coronary artery disease Qualifiers: Coronary Disease-Associated Artery/Lesion type: [place] artery [place] vs. transplanted heart: [place] heart Associated angina: without angina Qualified Code(s): I25.10 - Atherosclerotic heart disease of [place] coronary artery without angina pectoris Is this a current diagnosis for this admission?: Yes Plan: Per the patient report, he had an MD in the s however I never received any of those records. His most recent LHC in 2016 demonstrated patent coronary art eries. He has remained free of angina and angina equivalents. RECOMMENDATIONS: -Continue with outpatient medical regimen. -Continue with cardiac enzymes. -Echocardiogram. (5) Hypertension Qualifiers: Hypertension type: essential hypertension Qualified Code(s): I10 - Essential (primary) hypertension Is this a current diagnosis for this admission?: Yes (6) Atrial fibrillation Qualifiers: Atrial fibrillation type: paroxysmal Qualified Code(s): I48.0 - Paroxysmal atrial fibrillation Is this a current diagnosis for this admission?: Yes Plan: The patient remains asymptomatic and anticoagulated with Eliquis 2.5 mg bid given his age and renal function. He underwent ALBERT-guided DC-CV in April 2019 without any symptomatic recurrences of the dysrhythmia. RECOMMENDATIONS: -Continue with outpatient medical regimen. -Telemetry. -Will continue to follow with you. - Time Time Spent: 50 to 70 Minutes
--- NOTE | 2019-11-05 16:47 | PDOC H&P ---
History of Present Illness Admission Date/PCP: 11/05/19 11:05 SHARATH ALVAREZ MD History of Present Illness: ABIGAIL BOUDREAUX is a 83 year old male with a history of cardiomyopathy with an EF of 15 to 20% who has a defibrillator and is noncompliant with his diet who had a syncopal episode this morning. His did not see it but she heard him hit the floor in the kitchen and when she came in to see him he was disoriented and did not know exactly where he was at the moment. She called EMS he was brought into the hospital and had no evidence of any fractures and no evidence of any acute lab abnormalities. His pacemaker was interrogated and it was found that he had gone into ventricular fibrillation which was terminated with 1 shock at 41 J from the defibrillator. He was seen in consultation by his cableway operator Dr. Mora who recommended bringing him in the ruling him out for an acute ischemic event and for further evaluation. Past Medical History Cardiac Medical History: Reports: Congestive Heart Failure, Coronary Artery Disease, Myocardial Infarction, Hyperlipidema, Hypertension Pulmonary Medical History: Reports: Chronic Obstructive Pulmonary Disease (COPD) Denies: Asthma, Bronchitis, Pneumonia Neurological Medical History: Denies: Seizures Endocrine Medical History: Reports: Diabetes Mellitus Type 2, Hyperthyroidism Denies: Diabetes Mellitus Type 1, Hypothyroidism GI Medical History: Reports: Gastroesophageal Reflux Disease Denies: Cirrhosis, Crohn's Disease, Hepatitis, Ulcerative Colitis Musculoskeltal Medical History: Reports: Arthritis Denies: Gout Skin Medical History: Denies: Eczema, Psoriasis Psychiatric Medical History: Denies: Attention Deficit Hyperactivity Disorder, Bipolar Disorder, Dementia, Depression Hematology: Denies: Anemia, Sickle Cell Disease, Bleeding Tendencies Past Surgical History Past Surgical History: Reports: Appendectomy, Orthopedic Surgery - Cervical spine fusion, Pacemaker - Pacemaker defibrillator January 2018 Social History Smoking Status: Current Every Day Smoker Electronic Cigarette use?: No Number of Years Smokin Last Time Smoked: 11/04/2019 Frequency of Alcohol Use: None Hx Recreational Drug Use: No Drugs: None Hx Prescription Drug Abuse: No - Advance Directive Resuscitation Status: Full Code Family History Family History: Hypertension, Malignancy Parental Family History Reviewed: Yes Children Family History Reviewed: Yes Sibling(s) Family History Reviewed.: Yes Medication/Allergy Home Medications: Apixaban [Eliquis 2.5 mg Tablet] 2.5 mg PO Q12 11/05/19 Baclofen [Baclofen 10 mg Tablet] 5 mg PO Q12 11/05/19 Cetirizine HCl [Zyrtec] 10 mg PO DAILY 11/05/19 Furosemide [Lasix 40 mg Tablet] 40 mg PO DAILY 11/05/19 Methimazole [Tapazole 5 Mg Tablet] 5 mg PO DAILY 11/05/19 Omeprazole 40 mg PO QAM 11/05/19 Potassium Chloride [Klor-Con M10] 10 meq PO DAILY 11/05/19 Pravastatin Sodium [Pravachol] 20 mg PO QHS 11/05/19 Ranitidine HCl [Zantac] 150 mg PO QHS 11/05/19 Allergies/Adverse Reactions: No Known Allergies Allergy (Verified 08/24/19 18:45) Review of Systems All systems: reviewed and no additional remarkable complaints except as stated - All systems were reviewed and were negative except as noted in the HPI Physical Exam Vital Signs: Temp Pulse Resp BP Pulse Ox 97.3 F 85 18 110/54 L 95 11/05/19 15:30 11/05/19 15:30 11/05/19 15:30 11/05/19 15:30 11/05/19 15:30 Intake & Output 11/04/19 11/05/19 11/06/19 06:59 06:59 06:59 Intake Total 360 Output Total 0 Balance 360 Weight 77 kg 77 kg General appearance: PRESENT: no acute distress, cooperative, disheveled, other - Looked fatigued Head exam: PRESENT: atraumatic, normocephalic Eye exam: PRESENT: EOMI, PERRLA. ABSENT: conjunctival injection, nystagmus, scleral icterus Ear exam: PRESENT: normal external ear exam Mouth exam: PRESENT: moist, neck supple Teeth exam: PRESENT: poor dentation Throat exam: ABSENT: post pharyngeal erythema Neck exam: PRESENT: full ROM. ABSENT: carotid bruit, JVD, lymphadenopathy, meningismus, tenderness, thyromegaly Respiratory exam: PRESENT: clear to auscultation christin, symmetrical, unlabored. ABSENT: accessory muscle use, chest wall tenderness, crackles, prolonged expiratory phas, retraction, rhonchi, tachypnea, wheezes Cardiovascular exam: PRESENT: RRR, +S1, +S2 Pulses: PRESENT: normal carotid pulses Vascular exam: PRESENT: normal capillary refill GI/Abdominal exam: PRESENT: normal bowel sounds, soft. ABSENT: distended, guarding, rebound, tenderness Extremities exam: PRESENT: pedal edema, +1 edema. ABSENT: clubbing Musculoskeletal exam: PRESENT: normal inspection. ABSENT: deformity Neurological exam: PRESENT: awake, oriented to person, oriented to place, oriented to situation, CN II-XII grossly intact. ABSENT: motor sensory deficit Psychiatric exam: PRESENT: flat affect Skin exam: PRESENT: dry, warm Results Laboratory Results: 11/05/19 06:15 11/05/19 06:15 11/05/19 11/05/19 11/05/19 01:52 06:15 06:15 WBC 7.2 RBC 4.42 Hgb 13.4 L Hct 39.1 MCV 89 MCH 30.4 MCHC 34.4 RDW 17.4 H Plt Count 151 Seg Neutrophils % 66.7 Sodium 141.4 Potassium 4.4 Chloride 102 Carbon Dioxide 33 H Anion Gap 6 BUN 37 H Creatinine 1.63 H Est GFR ( Amer) 49 L Glucose 176 H Calcium 9.7 Magnesium Total Bilirubin 1.1 AST 33 Alkaline Phosphatase 103 Total Protein 6.8 Albumin 3.8 Urine Color STRAW Urine Appearance CLEAR Urine pH 5.0 Ur Specific [place] 1.010 Urine Protein 30 H Urine Glucose (UA) NEGATIVE Urine Ketones NEGATIVE Urine Blood MODERATE H Urine Nitrite NEGATIVE Ur Leukocyte Esterase NEGATIVE Urine WBC (Auto) 0 Urine RBC (Auto) 2 11/05/19 06:15 WBC RBC Hgb Hct MCV MCH MCHC RDW Plt Count Seg Neutrophils % Sodium Potassium Chloride Carbon Dioxide Anion Gap BUN Creatinine Est GFR ( Amer) Glucose Calcium Magnesium 2.0 Total Bilirubin AST Alkaline Phosphatase Total Protein Albumin Urine Color Urine Appearance Urine pH Ur Specific [place] Urine Protein Urine Glucose (UA) Urine Ketones Urine Blood Urine Nitrite Ur Leukocyte Esterase Urine WBC (Auto) Urine RBC (Auto) 11/05/19 11/05/19 06:15 15:35 Troponin I 0.056 0.054 Impressions: Chest X-Ray 11/05/19 00:21 IMPRESSION: Cardiac enlargement and COPD without evidence of acute process Head CT 11/05/19 00:21 IMPRESSION: 1. No acute intracranial abnormality by CT criteria. This exam was performed according to our departmental dose-optimization program, which includes automated exposure control, adjustment of the mA and/or kV according to patient size and/or use of iterative reconstruction technique. Scapula X-Ray 11/05/19 00:21 IMPRESSION: There are no findings to suggest an acute fracture of the right scapula. Assessment and Plan - Diagnosis (1) Syncope and collapse Is this a current diagnosis for this admission?: Yes Plan: Due to ventricular fibrillation that was terminated by his defibrillator. Monitoring for further cardiac events. (2) Ventricular fibrillation Is this a current diagnosis for this admission?: Yes Plan: We consulted his cableway operator. Trending troponins. Echocardiogram has been ordered. Cardiology has stated that he may need antiarrhythmic therapy, and possibly a cardiac catheterization. (3) Chronic systolic congestive heart failure Is this a current diagnosis for this admission?: Yes Plan: We will continue his home medications and will optimize accordingly - Time Time Spent with patient: 35 or more minutes
[2019-11-05] MEDS ORDERED: MAG HYDROX/AL HYDROX/SIMETH SUSP 30 ML UDCUP PO PRN (22:47)
[2019-11-05] MEDS ORDERED: ONDANSETRON HCL INJ/PF 4 MG/2 ML SDV IV PRN (22:47)
[2019-11-05] MEDS ORDERED: TEMAZEPAM 15 MG CAPSULE PO PRN (22:47)
[2019-11-05] MEDS ORDERED: MAGNESIUM HYDROXIDE SUSP 30 ML UDCUP PO PRN (22:47)
[2019-11-05] MEDS: FAMOTIDINE 20 MG TABLET PO SCH (23:43)
[2019-11-05] MEDS: APIXABAN 2.5 MG TABLET PO SCH (23:43)
[2019-11-05] MEDS: BACLOFEN 10 MG TABLET PO SCH (23:43)
[2019-11-06] MEDS ORDERED: MORPHINE SULFATE 10 MG/ML INJ IV PRN (00:37)
[2019-11-06] MEDS ORDERED: ACETAMINOPHEN 325 MG TABLET PO PRN (00:38)
[2019-11-06] MEDS ORDERED: IBUPROFEN 800 MG TABLET PO PRN (00:39)
[2019-11-06 05:37] LABS: HEMATOCRIT 37.1 % (37.9-51.0); HEMOGLOBIN 12.5 g/dL (13.5-17.0); MEAN CORPUSCULAR HEMOGLOBIN 29.8 pg (27.0-33.4); MEAN CORPUSCULAR HGB CONC 33.6 g/dL (32.0-36.0); MEAN CORPUSCULAR VOLUME 89 fl (80-97); PLATELET COUNT 143 10^3/uL (150-450); RED BLOOD COUNT 4.17 10^6/uL (4.35-5.55); RED CELL DISTRIBUTION WIDTH 17.2 % (11.5-14.0); WHITE BLOOD COUNT 6.5 10^3/uL (4.0-10.5)
[2019-11-06 06:08] LABS: ANION GAP 6 (5-19); BLOOD UREA NITROGEN 36 mg/dL (7-20); CALCIUM 8.8 mg/dL (8.4-10.2); CARBON DIOXIDE 32 mmol/L (22-30); CHLORIDE 100 mmol/L (98-107); CHOLESTEROL 136.92 mg/dL (0-200); GLUCOSE 271 mg/dL (75-110); TRIGLYCERIDES 67 mg/dL (<150)
[2019-11-06 06:18] LABS: DIRECT LDL 61 mg/dL (<100)
--- NOTE | 2019-11-06 06:31 | PDOC PROGRESS REPORT ---
Subjective Progress Note for:: 11/06/19 Subjective:: ABIGAIL BOUDREAUX is a 83 year old male with history of remote MT in 1990s, hypertension, COPD, hypertension,DM, hyperlipidemia, COPD, diabetes, atrial fibrillation s/p ALBERT guided cardioversion on 04/23/19 successfully, tobacco use, non-ischemic CM, HFrEF with multiple exacerbations requiring hospitalizations secondary to dietary indiscretions who is consulted to me in the ED for evaluation of syncope. The patient had been in his usual state of health until yesterday when he developed dizziness and lightheadedness which was followed by a syncopal event. His states that she was in the bedroom when she heard a thud and ran to the patient finding him on his back on the floor. His eyes were opened but he was not able to answer questions appropriately therefore he was brought to the ED via ambulance. His ICD was interrogated demonstrating episodes of VT and one episode of VF that was terminated with one shock at 41J. The patient is found in the bed in the ER only complaining of back pain. He specifically denies CP, shortness of breath, PND, palpitations and recurrence of syncope. He does admit LE edema as well as occasionally "cheating on my diet". Oct 20: Today the patient is found sitting on his chair with his legs elevated. He had an uneventful night and has no cardiac complaints. He desires to go home. His telemetry demonstrated sinus rhythm with no ventricular events. Echocardiogram in March 2019 at [facility]. -Severe LVE. -Mild concentric LVH. -EF 15-20%. -Severe global hypokinesis. -RV systolic function moderately to severely reduced. -Moderate biatrial enlargement. -Severe MR, moderate TR, trace AI. -Moderate pulmonary hypertension. [facility] on 02/10/17: -Left main: Widely patent. -LAD: Patent. -Left circumflex: Patent. -RCA: Patent. Reason For Visit: ELEVATED TROPNIN,VENTICULAR FIBRILLATION Physical Exam Vital Signs: Temp Pulse Resp BP Pulse Ox 97.3 F 78 16 116/71 92 11/06/19 03:22 11/06/19 03:22 11/06/19 03:22 11/06/19 03:22 11/06/19 03:22 Intake & Output 11/04/19 11/05/19 11/06/19 06:59 06:59 06:59 Intake Total 720 Output Total 300 Balance 420 Weight 77 kg 77 kg General appearance: PRESENT: no acute distress, disheveled, well-developed, well-nourished Head exam: PRESENT: atraumatic, normocephalic Eye exam: PRESENT: conjunctiva pink, EOMI, PERRLA. ABSENT: scleral icterus Neck exam: ABSENT: carotid bruit, JVD, lymphadenopathy, thyromegaly Respiratory exam: PRESENT: clear to auscultation christin. ABSENT: rales, rhonchi, wheezes Cardiovascular exam: PRESENT: RRR. ABSENT: diastolic murmur, rubs, systolic murmur Pulses: PRESENT: normal dorsalis pedis pul Vascular exam: PRESENT: normal capillary refill GI/Abdominal exam: PRESENT: normal bowel sounds, soft. ABSENT: distended, guarding, mass, organolmegaly, rebound, tenderness Extremities exam: PRESENT: pedal edema, +2 edema Neurological exam: PRESENT: alert, altered, awake, oriented to person, oriented to place, oriented to time Results Laboratory Results: 11/06/19 04:02 11/05/19 11/05/19 11/05/19 06:15 06:15 06:15 WBC 7.2 RBC 4.42 Hgb 13.4 L Hct 39.1 MCV 89 MCH 30.4 MCHC 34.4 RDW 17.4 H Plt Count 151 Seg Neutrophils % 66.7 Sodium 141.4 Potassium 4.4 Chloride 102 Carbon Dioxide 33 H Anion Gap 6 BUN 37 H Creatinine 1.63 H Est GFR ( Amer) 49 L Glucose 176 H Calcium 9.7 Magnesium 2.0 Total Bilirubin 1.1 AST 33 Alkaline Phosphatase 103 Total Protein 6.8 Albumin 3.8 11/06/19 04:02 WBC 6.5 RBC 4.17 L Hgb 12.5 L Hct 37.1 L MCV 89 MCH 29.8 MCHC 33.6 RDW 17.2 H Plt Count 143 L Seg Neutrophils % Sodium Potassium Chloride Carbon Dioxide Anion Gap BUN Creatinine Est GFR ( Amer) Glucose Calcium Magnesium Total Bilirubin AST Alkaline Phosphatase Total Protein Albumin 11/05/19 11/05/19 11/05/19 06:15 15:35 21:27 Troponin I 0.056 0.054 0.054 Impressions: Chest X-Ray 11/05/19 00:21 IMPRESSION: Cardiac enlargement and COPD without evidence of acute process Head CT 11/05/19 00:21 IMPRESSION: 1. No acute intracranial abnormality by CT criteria. This exam was performed according to our departmental dose-optimization program, which includes automated exposure control, adjustment of the mA and/or kV according to patient size and/or use of iterative reconstruction technique. Scapula X-Ray 11/05/19 00:21 IMPRESSION: There are no findings to suggest an acute fracture of the right scapula. Assessment & Plan - Diagnosis (1) Syncope and collapse Plan: Syncope and collapse Is this a current diagnosis for this admission?: Yes Plan: The patient had a syncopal event related to ventricular fibrillation which was terminated by one shock at 41J by his defibrillator. He has not been started on carvedilol yet. He remains asymptomatic this morning and without any significa nt events on telemetry. RECOMMENDATIONS: -Restart carvedilol at 3.125 mg twice daily. -Continue with telemetry. -If the patient tolerates carvedilol, he can be discharged home from the cardiovascular standpoint. (2) Ventricular fibrillation Is this a current diagnosis for this admission?: Yes Plan: (2) Ventricular fibrillation Is this a current diagnosis for this admission?: Yes Plan: Likely secondary to his underlying severe non-ischemic CM. The patient denied ischemic symptoms therefore I don't believe this is secondary to cardiac ischemia as demonstrated by no obstructive CAD on [facility] in February 2017. His elevated troponin is likely from his heart failure, renal dysfunction,VF and defibrillation. His echocardiogram is still pending. His cardiac en troponin has remained flat. His telemetry overnight with unremarkable. I spoke with him about further work-up such as a Lexiscan nuclear stress test to ensure there is no reversible cause for his a ventricular fibrillation however he declined therefore we will continue to pursue medical management. I do not see a class I indication for the patient to remain in the hospital. His echocardiogram can be done in the outpatient setting. RECOMMENDATIONS: -Restart carvedilol 3.125 mg bid. -S/L NTG if chest pain develops. -Continue with cardiac telemetry. -May discharge patient from the cardiovascular standpoint. (3) Acute on chronic systolic (congestive) heart failure Plan: (3) Acute on chronic systolic (congestive) heart failure Plan: Even though the patient is asymptomatic he does have LE edema which actually loo ks as his baseline. His dry weight is around 160 pounds as outpatient. He remains asymptomatic from the heart failure standpoint and at his baseline. RECOMMENDATIONS: -Continue with current outpatient medications. -Strict intake and output. -Daily weight. -Limit daily fluids to 2000 ml. -Low sodium diet. -I will see the patient in the office once discharged. (4) Coronary artery disease Qualifiers: Coronary Disease-Associated Artery/Lesion type: [place] artery [place] vs. transplanted heart: [place] heart Associated angina: without angina Qualified Code(s): I25.10 - Atherosclerotic heart disease of [place] coronary artery without angina pectoris Is this a current diagnosis for this admission?: Yes Plan: (4) Coronary artery disease Qualifiers: Coronary Disease-Associated Artery/Lesion type: [place] artery [place] vs. transplanted heart: [place] heart Associated angina: without angina Qualified Code(s): I25.10 - Atherosclerotic heart disease of [place] coronary artery without angina pectoris Is this a current diagnosis for this admission?: Yes Plan: Per the patient report, he had an MT in the however I never received any of those records. His most recent LHC in 2017 demonstrated patent coronary arteries. He has remained free of angina and angina equivalents. We discussed further ischemic assessment in view of his ventricular fibrillation however he declined. RECOMMENDATIONS: -Continue with outpatient medical regimen. -The patient may be discharged from a cardiovascular standpoint. -I will see him in the office within 1 week of discharge. (5) Hypertension Qualifiers: Hypertension type: essential hypertension Qualified Code(s): I10 - Essential (primary) hypertension Is this a current diagnosis for this admission?: Yes Plan: (5) Hypertension Qualifiers: Hypertension type: essential hypertension Qualified Code(s): I10 - Essential (primary) hypertension Is this a current diagnosis for this admission?: Yes Blood pressure is well controlled. Recommendations: -Continue current medical management. (6) Atrial fibrillation Qualifiers: Atrial fibrillation type: paroxysmal Qualified Code(s): I48.0 - Paroxysmal atrial fibrillation Is this a current diagnosis for this admission?: Yes Plan: (6) Atrial fibrillation Qualifiers: Atrial fibrillation type: paroxysmal Qualified Code(s): I48.0 - Paroxysmal atrial fibrillation Is this a current diagnosis for this admission?: Yes Plan: The patient remains asymptomatic and anticoagulated with Eliquis 2.5 mg bid given his age and renal function. He underwent ALBERT-guided DC-CV in April 2019 without any symptomatic recurrences of the dysrhythmia. RECOMMENDATIONS: -Continue with outpatient medical regimen.
[2019-11-06] MEDS: FAMOTIDINE 20 MG TABLET PO SCH (09:06)
[2019-11-06] MEDS: APIXABAN 2.5 MG TABLET PO SCH (09:07)
[2019-11-06] MEDS: BACLOFEN 10 MG TABLET PO SCH (09:07)
[2019-11-06] MEDS ORDERED: FUROSEMIDE 40 MG TABLET PO SCH (10:00)
[2019-11-06] MEDS ORDERED: DOCUSATE SODIUM 100 MG CAPSULE PO SCH (10:00)
[2019-11-06] MEDS ORDERED: POTASSIUM CHLORIDE 10 MEQ TABLET.ER PO SCH (10:00)
[2019-11-06] MEDS ORDERED: METHIMAZOLE 5 MG TABLET PO SCH (10:00)
[2019-11-06] MEDS ORDERED: CETIRIZINE 10 MG TABLET PO SCH (10:00)
[2019-11-06 13:14] VITALS: BP 101/60
[2019-11-06] MEDS ORDERED: CARVEDILOL 3.125 MG TABLET PO SCH ×2 (13:15→22:00)
--- NOTE | 2019-11-08 13:56 | PDOC DISCHARGE SUMMARY ---
Impression - Admit/DC Date/PCP Admission Date/Primary Care Provider: 11/05/19 11:05 SHARATH ALVAREZ MD Discharge Date: 11/06/19 - Additional Information Resuscitation Status: Full Code Discharge Diet: Cardiac, Diabetic Discharge Activity: Activity As Tolerated, Balance Activity w/Rest, Weigh Daily Referrals: SHARATH ALVAREZ MD [Primary Care Provider] - 11/12/19 2:00 pm Home Medications: Apixaban [Eliquis 2.5 mg Tablet] 2.5 mg PO Q12 11/05/19 Baclofen [Baclofen 10 mg Tablet] 5 mg PO Q12 11/05/19 Cetirizine HCl [Zyrtec] 10 mg PO DAILY 11/05/19 Furosemide [Lasix 40 mg Tablet] 40 mg PO BID 11/05/19 Methimazole [Tapazole 5 mg Tablet] 5 mg PO QAM 11/05/19 Omeprazole 40 mg PO QAM 11/05/19 Potassium Chloride [Klor-Con M10] 10 meq PO QAM 11/05/19 Pravastatin Sodium [Pravachol] 20 mg PO QAM 11/05/19 Ranitidine HCl [Zantac] 150 mg PO QHS 11/05/19 Carvedilol [Coreg 3.125 mg Tablet] 3.125 mg PO Q12 11/06/19 Insulin Aspart [Novolog Flexpen] 6 units SQ MEALS 11/06/19 Polyethylene Glycol 3350 [Miralax Powder 17 gm/Packet] 17 gm PO DAILY 11/06/19 History of Present Illiness History of Present Illness: ABIGAIL BOUDREAUX is a 83 year old male with a history of cardiomyopathy with an EF of 15 to 20% who has a defibrillator and is noncompliant with his diet who had a syncopal episode this morning. His did not see it but she heard him hit the floor in the kitchen and when she came in to see him he was disoriented and did not know exactly where he was at the moment. She called EMS he was brought into the hospital and had no evidence of any fractures and no evidence of any acute lab abnormalities. His pacemaker was interrogated and it was found that he had gone into ventricular fibrillation which was terminated with 1 shock at 41 J from the defibrillator. He was seen in consultation by his orthopedic nurse Dr. Mora who recommended bringing him in the ruling him out for an acute ischemic event and for further evaluation. Hospital Course Hospital Course: Due to ventricular fibrillation that was terminated by his defibrillator. Recurrence while inpatient. Admitted to telemetry. Restarted home meds. Cardiology Dr. Mora was consulted. Recommendation was to restart carvedilol 3.125 mg twice daily and follow-up with Dr. Mora as outpatient. And was discharged on carvedilol 3.125 mg twice daily and was advised to follow- up with Dr. Mora as outpatient. Physical Exam Vital Signs: Temp Pulse Resp BP Pulse Ox 97.5 F 37 L 18 101/60 95 11/06/19 13:13 11/06/19 13:13 11/06/19 13:13 11/06/19 13:13 11/06/19 13:13 Intake & Output 11/07/19 11/08/19 11/09/19 06:59 06:59 06:59 Intake Total 720 Balance 720 General appearance: PRESENT: no acute distress, well-developed, well-nourished Head exam: PRESENT: atraumatic, normocephalic Respiratory exam: PRESENT: clear to auscultation christin. ABSENT: rales, rhonchi, w heezes Cardiovascular exam: PRESENT: RRR. ABSENT: diastolic murmur, rubs, systolic murmur GI/Abdominal exam: PRESENT: normal bowel sounds, soft. ABSENT: distended, guarding, mass, organolmegaly, rebound, tenderness Neurological exam: PRESENT: alert, awake, oriented to person, oriented to place, oriented to time, oriented to situation, CN II-XII grossly intact. ABSENT: motor sensory deficit Results Laboratory Results: WBC 6.5 10^3/uL (4.0-10.5) 11/06/19 04:02 RBC 4.17 10^6/uL (4.35-5.55) L 11/06/19 04:02 Hgb 12.5 g/dL (13.5-17.0) L 11/06/19 04:02 Hct 37.1 % (37.9-51.0) L 11/06/19 04:02 MCV 89 fl (80-97) 11/06/19 04:02 MCH 29.8 pg (27.0-33.4) 11/06/19 04:02 MCHC 33.6 g/dL (32.0-36.0) 11/06/19 04:02 RDW 17.2 % (11.5-14.0) H 11/06/19 04:02 Plt Count 143 10^3/uL (150-450) L 11/06/19 04:02 Lymph % (Auto) 22.2 % (13-45) 11/05/19 06:15 [place] % (Auto) 9.4 % (3-13) 11/05/19 06:15 Eos % (Auto) 0.9 % (0-6) 11/05/19 06:15 Baso % (Auto) 0.8 % (0-2) 11/05/19 06:15 Absolute Neuts (auto) 4.8 10^3/uL (1.7-8.2) 11/05/19 06:15 Absolute Lymphs (auto) 1.6 10^3/uL (0.5-4.7) 11/05/19 06:15 Absolute Monos (auto) 0.7 10^3/uL (0.1-1.4) 11/05/19 06:15 Absolute Eos (auto) 0.1 10^3/uL (0.0-0.6) 11/05/19 06:15 Absolute Basos (auto) 0.1 10^3/uL (0.0-0.2) 11/05/19 06:15 Seg Neutrophils % 66.7 % (42-78) 11/05/19 06:15 Sodium 137.9 mmol/L (137-145) 11/06/19 04:02 Potassium 5.0 mmol/L (3.6-5.0) 11/06/19 04:02 Chloride 100 mmol/L (98-107) 11/06/19 04:02 Carbon Dioxide 32 mmol/L (22-30) H 11/06/19 04:02 Anion Gap 6 (5-19) 11/06/19 04:02 BUN 36 mg/dL (7-20) H 11/06/19 04:02 Creatinine 1.67 mg/dL (0.52-1.25) H 11/06/19 04:02 Est GFR ( Amer) 48 (>60) L 11/06/19 04:02 Est GFR (MDRD) Non-Af 39 (>60) L 02/25/20 04:02 Glucose 271 mg/dL (75-110) H 11/06/19 04:02 POC Glucose 294 mg/dL (70-110) H 11/06/19 11:48 Hemoglobin A1c % 9.9 % (4.7-6.0) H 11/06/19 04:02 Calcium 8.8 mg/dL (8.4-10.2) 11/06/19 04:02 Magnesium 2.0 mg/dL (1.6-2.3) 11/06/19 04:02 Total Bilirubin 1.1 mg/dL (0.2-1.3) 11/05/19 06:15 Direct Bilirubin 0.0 mg/dL (0.0-0.4) 11/05/19 06:15 Neonat Total Bilirubin Not Reportable 11/05/19 06:15 Neonat Direct Bilirubin Not Reportable 11/05/19 06:15 Neonat Indirect Bili Not Reportable 11/05/19 06:15 AST 33 U/L (17-59) 11/05/19 06:15 ALT 52 U/L (<50) H 11/05/19 06:15 Alkaline Phosphatase 103 U/L (38-126) 11/05/19 06:15 Troponin I 0.050 ng/mL 11/06/19 04:02 Total Protein 6.8 g/dL (6.3-8.2) 11/05/19 06:15 Albumin 3.8 g/dL (3.5-5.0) 11/05/19 06:15 Triglycerides 67 mg/dL (<150) 11/06/19 04:02 Cholesterol 136.92 mg/dL (0-200) 11/06/19 04:02 LDL Cholesterol Direct 61 mg/dL (<100) 11/06/19 04:02 VLDL Cholesterol 13.0 mg/dL (10-31) 11/06/19 04:02 HDL Cholesterol 66 mg/dL (>40) 11/06/19 04:02 Free T3 pg/mL 3.08 pg/mL (2.77-5.27) 11/06/19 04:02 Urine Color STRAW 11/05/19 01:52 Urine Appearance CLEAR 11/05/19 01:52 Urine pH 5.0 (5.0-9.0) 11/05/19 01:52 Ur Specific [place] 1.010 11/05/19 01:52 Urine Protein 30 mg/dL (NEGATIVE) H 11/05/19 01:52 Urine Glucose (UA) NEGATIVE mg/dL (NEGATIVE) 11/05/19 01:52 Urine Ketones NEGATIVE mg/dL (NEGATIVE) 11/05/19 01:52 Urine Blood MODERATE (NEGATIVE) H 11/05/19 01:52 Urine Nitrite NEGATIVE (NEGATIVE) 11/05/19 01:52 Urine Bilirubin NEGATIVE (NEGATIVE) 11/05/19 01:52 Urine Urobilinogen NEGATIVE mg/dL (<2.0) 11/05/19 01:52 Ur Leukocyte Esterase NEGATIVE (NEGATIVE) 11/05/19 01:52 Urine WBC (Auto) 0 /HPF 11/05/19 01:52 Urine RBC (Auto) 2 /HPF 11/05/19 01:52 Squamous Epi Cells Auto <1 /HPF 11/05/19 01:52 Urine Mucus (Auto) RARE /LPF 11/05/19 01:52 Urine Ascorbic Acid NEGATIVE (NEGATIVE) 11/05/19 01:52 11/05/19 11/05/19 11/05/19 06:15 15:35 21:27 Troponin I 0.056 0.054 0.054 11/06/19 04:02 Troponin I 0.050 Impressions: Chest X-Ray 11/05/19 00:21 IMPRESSION: Cardiac enlargement and COPD without evidence of acute process Head CT 11/05/19 00:21 IMPRESSION: 1. No acute intracranial abnormality by CT criteria. This exam was performed according to our departmental dose-optimization program, which includes automated exposure control, adjustment of the mA and/or kV according to patient size and/or use of iterative reconstruction technique. Scapula X-Ray 11/05/19 00:21 IMPRESSION: There are no findings to suggest an acute fracture of the right scapula. Plan Time Spent: Greater than 30 Minutes Stroke Is this a Stroke Patient?: No Acute Heart Failure - Is this a Heart Failure Patient?: No
== END 2019-11-06 14:55 | disposition home or self-care (01) ==
LOC: ER 22:58 → EH 11-05 11:05 → INTOOBSV 11-05 11:05 → 3S 11-05 12:45
PROVIDERS: ADMIT Family Medicine; ATTEND Family Medicine
DX: R55 Syncope and collapse (principal); I49.01 Ventricular fibrillation; I42.8 Other cardiomyopathies; Z91.11 Patient's noncompliance with dietary regimen; F17.200 Nicotine dependence, unspecified, uncomplicated; R79.89 Other specified abnormal findings of blood chemistry; I48.0 Paroxysmal atrial fibrillation; I11.0 Hypertensive heart disease with heart failure; I50.23 Acute on chronic systolic (congestive) heart failure; I25.10 Atherosclerotic heart disease of native coronary artery without angina pectoris; I25.2 Old myocardial infarction; E78.5 Hyperlipidemia, unspecified; K21.9 Gastro-esophageal reflux disease without esophagitis; J44.9 Chronic obstructive pulmonary disease, unspecified; M25.511 Pain in right shoulder; W07.XXXA Fall from chair, initial encounter; Y92.000 Kitchen of unspecified non-institutional (private) residence as the place of occurrence of the external cause; E11.9 Type 2 diabetes mellitus without complications; M54.9 Dorsalgia, unspecified; Z79.899 Other long term (current) drug therapy; Z79.4 Long term (current) use of insulin; Z98.1 Arthrodesis status; Z45.02 Encounter for adjustment and management of automatic implantable cardiac defibrillator; Z82.49 Family history of ischemic heart disease and other diseases of the circulatory system; Z79.01 Long term (current) use of anticoagulants; Z85.46 Personal history of malignant neoplasm of prostate
CPT/HCPCS: 93005; 99285; 96374; 96375; 36415 ×2; 82962; 83735 ×2; 85025; 85027; 80048; 80053; 81001; 84484 ×2; 84481; 83036; 80061; 71046; 73010; 70450; 93010; 93289; G0378 ×3; A9270 ×13; J2270 ×2; J3490 ×2; J2405

== ENCOUNTER 2020-01-11 13:38 | Emergency (ER) | payer MEDICARE, OTHER ==
[2020-01-11 14:11] LABS: ABSOLUTE LYMPHOCYTES (AUTO) 1.2 10^3/uL (0.5-4.7); ABSOLUTE MONOCYTES (AUTO) 0.6 10^3/uL (0.1-1.4); ABSOLUTE NEUT (AUTO) 7.6 10^3/uL (1.7-8.2); BASOPHILS % (AUTO) 0.3 % (0-2); HEMATOCRIT 34.2 % (37.9-51.0); HEMOGLOBIN 11.7 g/dL (13.5-17.0); LYMPHOCYTES % (AUTO) 12.6 % (13-45); MEAN CORPUSCULAR HEMOGLOBIN 30.3 pg (27.0-33.4); MEAN CORPUSCULAR HGB CONC 34.2 g/dL (32.0-36.0); MEAN CORPUSCULAR VOLUME 89 fl (80-97); MONOCYTES % (AUTO) 6.6 % (3-13); PLATELET COUNT 168 10^3/uL (150-450); RED BLOOD COUNT 3.85 10^6/uL (4.35-5.55); RED CELL DISTRIBUTION WIDTH 16.6 % (11.5-14.0); SEGMENTED NEUTROPHILS % (AUTO) 80.5 % (42-78); TOTAL CELLS COUNTED % (AUTO) 100 %; WHITE BLOOD COUNT 9.4 10^3/uL (4.0-10.5)
--- NOTE | 2020-01-11 14:29 | EKG REPORT ---
SEVERITY:- ABNORMAL ECG - ATRIAL-VENTRICULAR DUAL-PACED COMPLEXES : Confirmed by: Kathy Sullivan MD 11-Jan-2020 14:27:53
[2020-01-11 14:31] LABS: ALBUMIN 3.7 g/dL (3.5-5.0); ALKALINE PHOSPHATASE 74 U/L (38-126); ANION GAP 7 (5-19); ASPARTATE AMINO TRANSFERASE 44 U/L (17-59); BILIRUBIN,TOTAL 0.6 mg/dL (0.2-1.3); BLOOD UREA NITROGEN 47 mg/dL (7-20); CALCIUM 9.3 mg/dL (8.4-10.2); CARBON DIOXIDE 28 mmol/L (22-30); CHLORIDE 102 mmol/L (98-107); CREATINE KINASE 51 U/L (55-170); GLUCOSE 254 mg/dL (75-110); POTASSIUM 4.4 mmol/L (3.6-5.0); TOTAL PROTEIN 6.6 g/dL (6.3-8.2)
[2020-01-11 14:42] LABS: CREATINE KINASE MB 1.69 ng/mL (<4.55); TROPONIN I 0.031 ng/mL
--- NOTE | 2020-01-11 14:44 | ER Document Report ---
ED Dizziness/Weakness - General Chief Complaint: Weakness Stated Complaint: WEAKNESS Time Seen by Provider: 01/11/20 14:24 Primary Care Provider: SHARATH ALVAREZ MD [Primary Care Provider] - 01/14/20 DERRELL CABALLERO MD [ACTIVE PROVISIONAL STAFF] - 01/14/20 Information source: Patient Notes: Patient states that he was at home in the kitchen and pulling a chair out and had a left-sided headache. Patient states that he then had a syncopal episode. Patient was found by his who heard him fall and called EMS. Patient presently denies any headache pain. Patient denies any chest pain, shortness of breath. Patient denies any abdominal pain nausea or vomiting. Patient presently denies any complaints at this time. TRAVEL OUTSIDE OF THE [place] IN LAST 30 DAYS: No - HPI Patient complains to provider of: Syncope Onset: This afternoon Onset/Duration: Sudden Quality of pain: No pain Pain Level: Denies Associated symptoms: denies: Chest pain, Confused, Diarrhea, Dizzy, Nausea, Short of breath, Sweating, Vertigo, Vomiting Baseline gait: Uses a walker - Related Data Allergies/Adverse Reactions: No Known Allergies Allergy (Verified 08/24/19 18:45) Past Medical History - General Information source: Patient - Social History Smoking Status: Current Every Day Smoker Frequency of alcohol use: None Drug Abuse: None Lives with: Spouse/Significant other Family History: Hypertension, Malignancy Patient has homicidal ideation: No - Past Medical History Cardiac Medical History: Reports: Hx Congestive Heart Failure, Hx Coronary Artery Disease, Hx Heart Attack, Hx Hypercholesterolemia, Hx Hypertension Pulmonary Medical History: Reports: Hx COPD Denies: Hx Asthma, Hx Bronchitis, Hx Pneumonia Neurological Medical History: Denies: Hx Cerebrovascular Accident, Hx Seizures Endocrine Medical History: Reports: Hx Diabetes Mellitus Type 2, Hx Hyperthyroidism. Denies: Hx Diabetes Mellitus Type 1, Hx Hypothyroidism Renal/ Medical History: Denies: Hx Peritoneal Dialysis GI Medical History: Reports: Hx Gastroesophageal Reflux Disease. Denies: Hx Cirrhosis, Hx Crohn's Disease, Hx Hepatitis, Hx Ulcerative Colitis Musculoskeletal Medical History: Reports Hx Arthritis, Denies Hx Gout Skin Medical History: Denies Hx Eczema, Denies Hx Psoriasis Infectious Medical History: Denies: Hx Hepatitis Past Surgical History: Reports: Hx Appendectomy, Hx Cardiac Surgery - defibrillator, Hx Genitourinary Surgery - prostate ca surgery, Hx Orthopedic Surgery - Cervical spine fusion, Hx Pacemaker - Pacemaker defibrillator January 2018 - Immunizations Hx Diphtheria, Pertussis, Tetanus Vaccination: No Hx Pneumococcal Vaccination: 07/13/17 Review of Systems - Review of Systems Constitutional: No symptoms reported. denies: Fever, Recent illness EENT: No symptoms reported Cardiovascular: Syncope. denies: Chest pain, Palpitations Respiratory: No symptoms reported. denies: Cough, Short of breath Gastrointestinal: No symptoms reported. denies: Abdominal pain, Nausea, Vomiting Genitourinary: No symptoms reported Male Genitourinary: No symptoms reported Musculoskeletal: Leg swelling. denies: Back pain, Muscle pain, Neck pain Skin: No symptoms reported Hematologic/Lymphatic: No symptoms reported Neurological/Psychological: Headaches - Prior to syncopal episode, none now Physical Exam - Vital signs Vitals: Resp Pulse Ox 17 98 01/11/20 13:47 01/11/20 13:47 - General General appearance: Alert In distress: None - HEENT Head: Normocephalic, Atraumatic. No: Abrasions, Thornton's sign, Racoon's eyes, Tenderness Eyes: Normal Conjunctiva: Normal Pupils: PERRL Ears: Normal External canal: Normal Tympanic membrane: Normal Nasal: Normal Mouth/Lips: Normal Mucous membranes: Normal Neck: Normal, Supple - Respiratory Respiratory status: No respiratory distress Chest status: Nontender Breath sounds: Normal. No: Rales, Rhonchi, Stridor, Wheezing Chest palpation: Normal - Cardiovascular Rhythm: Regular Heart sounds: S1 appreciated, S2 appreciated - Abdominal Inspection: Normal Distension: No distension Bowel sounds: Normal Tenderness: Nontender Organomegaly: No organomegaly - Extremities General upper extremity: Normal inspection, Nontender, Normal strength General lower extremity: Nontender, Edema - 3+ bilat - Neurological Neuro grossly intact: Yes Cognition: Normal Orientation: AAOx4 Carolyne Coma Scale Eye Opening: Spontaneous Johnson Coma Scale Verbal: Oriented Carolyne Coma Scale Motor: Obeys Commands Johnson Coma Scale Total: 15 Speech: Normal. No: Dysarthria Cranial nerves: Normal. 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 fib in which he was shocked at 41 J, this occurred around 1136 today. Patient with a paced rhythm in the 80s and stable blood pressure at this time. Consulted with Dr. Franklin who recommends consultation with hospitalist for admiss ion at this time. 01/11/20 15:[address] Mackey who states that he will return the call in 5 to 10 minutes. 01/11/20 16:[address] Mackey who advises calling [facility] for admission. Spoke with [place] [facility] who will be down to evaluate patient. 01/11/20 17:24 Patient with stable vital signs without any chest pain or dyspnea symptoms. Patient does not want to be admitted at this time. Hospitalist did speak with pulp screen operator who was agreeable with plan to discharge patient and have patient see his pulp screen operator on outpatient basis. Patient is agreeable with this plan of care. It was recommended to write a prescription for magnesium oxide 400 mg daily. 01/11/20 17:27 Discussed discharge plan of care with Dr. Franklin who is in agreement at this time. - Vital Signs Vital signs: Temp Pulse Resp BP Pulse Ox 97.8 F 87 14 119/89 H 91 L 01/11/20 17:50 01/11/20 15:21 01/11/20 17:21 01/11/20 17:21 01/11/20 17:21 - Laboratory Result Diagrams: 01/11/20 14:00 01/11/20 14:00 Laboratory results interpreted by me: 01/11/20 01/11/20 01/11/20 14:00 14:00 15:14 RBC 3.85 L Hgb 11.7 L Hct 34.2 L RDW 16.6 H Lymph % (Auto) 12.6 L Seg Neutrophils % 80.5 H Sodium 136.7 L BUN 47 H Creatinine 1.67 H Est GFR ( Amer) 47 L Est GFR (MDRD) Non-Af 39 L Glucose 254 H Creatine Kinase 51 L Urine Protein 30 H 01/11/20 15:43 Labs- Entire Visit 01/11/20 01/11/20 01/11/20 14:00 14:00 14:00 WBC 9.4 RBC 3.85 L Hgb 11.7 L Hct 34.2 L MCV 89 MCH 30.3 MCHC 34.2 RDW 16.6 H Plt Count 168 Lymph % (Auto) 12.6 L [place] % (Auto) 6.6 Eos % (Auto) 0.0 Baso % (Auto) 0.3 Absolute Neuts (auto) 7.6 Absolute Lymphs (auto) 1.2 Absolute Monos (auto) 0.6 Absolute Eos (auto) 0.0 Absolute Basos (auto) 0.0 Seg Neutrophils % 80.5 H Sodium 136.7 L Potassium 4.4 Chloride 102 Carbon Dioxide 28 Anion Gap 7 BUN 47 H Creatinine 1.67 H Est GFR ( Amer) 47 L Est GFR (MDRD) Non-Af 39 L Glucose 254 H Calcium 9.3 Magnesium 1.9 Total Bilirubin 0.6 Direct Bilirubin 0.0 Neonat Total Bilirubin Not Reportable Neonat Direct Bilirubin Not Reportable Neonat Indirect Bili Not Reportable AST 44 ALT 31 Alkaline Phosphatase 74 Creatine Kinase 51 L CK-MB (CK-2) 1.69 Troponin I 0.031 Total Protein 6.6 Albumin 3.7 Urine Color Urine Appearance Urine pH Ur Specific [place] Urine Protein Urine Glucose (UA) Urine Ketones Urine Blood Urine Nitrite Urine Bilirubin Urine Urobilinogen Ur Leukocyte Esterase Urine WBC (Auto) Urine RBC (Auto) U Hyaline Cast (Auto) Squamous Epi Cells Auto Urine Mucus (Auto) Urine Ascorbic Acid 01/11/20 15:14 WBC RBC Hgb Hct MCV MCH MCHC RDW Plt Count Lymph % (Auto) [place] % (Auto) Eos % (Auto) Baso % (Auto) Absolute Neuts (auto) Absolute Lymphs (auto) Absolute Monos (auto) Absolute Eos (auto) Absolute Basos (auto) Seg Neutrophils % Sodium Potassium Chloride Carbon Dioxide Anion Gap BUN Creatinine Est GFR ( Amer) Est GFR (MDRD) Non-Af Glucose Calcium Magnesium Total Bilirubin Direct Bilirubin Neonat Total Bilirubin Neonat Direct Bilirubin Neonat Indirect Bili AST ALT Alkaline Phosphatase Creatine Kinase CK-MB (CK-2) Troponin I Total Protein Albumin Urine Color STRAW Urine Appearance CLEAR Urine pH 5.0 Ur Specific [place] 1.010 Urine Protein 30 H Urine Glucose (UA) NEGATIVE Urine Ketones NEGATIVE Urine Blood NEGATIVE Urine Nitrite NEGATIVE Urine Bilirubin NEGATIVE Urine Urobilinogen NEGATIVE Ur Leukocyte Esterase NEGATIVE Urine WBC (Auto) 1 Urine RBC (Auto) 0 U Hyaline Cast (Auto) 8 Squamous Epi Cells Auto <1 Urine Mucus (Auto) RARE Urine Ascorbic Acid NEGATIVE - Diagnostic Test Radiology reviewed: Reports reviewed Discharge - Discharge Clinical Impression: Syncope and collapse, Ventricular fibrillation, Defibrillator discharge Congestive heart failure (CHF) Qualifiers: Heart failure type: unspecified Heart failure chronicity: unspecified Qualified Code(s): I50.9 - Heart failure, unspecified Chronic kidney disease (CKD) Qualifiers: Chronic kidney disease stage: unspecified stage Qualified Code(s): N18.9 - Chronic kidney disease, unspecified Condition: Stable Disposition: HOME, SELF-CARE Instructions: Syncopal Episode ([facility]) Additional Instructions: Return immediately for any new or worsening symptoms Followup with your primary care provider, call Tuesday to make a followup appointment Follow-up with your pulp screen operator for recheck, call Tuesday for an appointment Prescriptions: Magnesium Oxide 400 mg PO DAILY #30 tablet Referrals: SHARATH ALVAREZ MD [Primary Care Provider] - 01/14/20 DERRELL CABALLERO MD [ACTIVE PROVISIONAL STAFF] - 01/14/20
--- NOTE | 2020-01-11 14:44 | RADIOLOGY REPORT (SQ) ---
EXAM DESCRIPTION: CHEST SINGLE VIEW IMAGES COMPLETED DATE/TIME: 01/11/2020 2:31 pm REASON FOR STUDY: Syncope COMPARISON: 11/05/2019 EXAM PARAMETERS: NUMBER OF VIEWS: One view. TECHNIQUE: Single frontal radiographic view of the chest acquired. RADIATION DOSE: NA LIMITATIONS: None. FINDINGS: LUNGS AND PLEURA: No opacities, masses or pneumothorax. No pleural effusion. MEDIASTINUM AND HILAR STRUCTURES: No masses. Contour normal. HEART AND VASCULAR STRUCTURES: Enlarged cardiac silhouette, stable. BONES: No acute bony abnormality. Degenerative change about the shoulders. HARDWARE: Left-sided cardiac pacer with leads overlying right atrium, right ventricle and coronary si nus. OTHER: No other significant finding. IMPRESSION: No evidence of acute cardiopulmonary process. Stable enlarged cardiac silhouette. TECHNICAL DOCUMENTATION: JOB ID: [id number] 2010 [employer]- All Rights Reserved Reading location - IP/workstation name: [email or web address]
--- NOTE | 2020-01-11 15:14 | RADIOLOGY REPORT (SQ) ---
EXAM DESCRIPTION: CT HEAD WITHOUT IMAGES COMPLETED DATE/TIME: 01/11/2020 3:02 pm REASON FOR STUDY: syncope, takes eliquis COMPARISON: 11/05/2019 TECHNIQUE: Axial images acquired through the brain without intravenous contrast. Images reviewed wi th bone, brain and subdural windows. Images stored on PACS. All CT scanners at this facility use dose modulation, iterative reconstruction, and/or weight based d osing when appropriate to reduce radiation dose to as low as reasonably achievable (ALARA). [facility]: Dose Right [facility]: CareDose [facility]: Dose Right [facility]: Teradose 4D [facility]: Ateo RADIATION DOSE: CT Rad equipment meets quality standard of care and radiation dose reduction techniq ues were employed. CTDIvol: 53.2 mGy. DLP: 911 mGy-cm. mGy. LIMITATIONS: None. FINDINGS: VENTRICLES: Normal size and contour for patient age. . CEREBRUM: No masses. No hemorrhage. No midline shift. No evidence for acute infarction. Normal gra y/white matter differentiation. No areas of low density in the white matter. Bilateral basal ganglia mineralization. CEREBELLUM: No masses. No hemorrhage. No alteration of density. No evidence for acute infarction. EXTRAAXIAL SPACES: No fluid collections. No masses. ORBITS AND GLOBE: No intra- or extraconal masses. Normal contour of globe without masses. Bilateral cataract surgery. CALVARIUM: No fracture. PARANASAL SINUSES: No fluid or mucosal thickening. SOFT TISSUES: No mass or hematoma. OTHER: Scattered punctate dermal calcifications. IMPRESSION: NO ACUTE INTRACRANIAL IMAGING FINDINGS. EVIDENCE OF ACUTE STROKE: NO. COMMENT: Quality ID # [id number]: Final reports with documentation of one or more dose reduction techniques (e.g., Automated exposure control, adjustment of the mA and/or kV according to patient size, use of iterative reconstruction technique) TECHNICAL DOCUMENTATION: JOB ID: [id number] 2010 [employer]- All Rights Reserved Reading location - IP/workstation name: [email or web address]
[2020-01-11 15:33] LABS: APPEARANCE,URINE CLEAR; BILIRUBIN,URINE NEGATIVE (NEGATIVE); COLOR,URINE STRAW; GLUCOSE, URINE NEGATIVE (NEGATIVE); KETONES,URINE NEGATIVE (NEGATIVE); LEUKOCYTE ESTERASE,URINE NEGATIVE (NEGATIVE); NITRITE,URINE NEGATIVE (NEGATIVE); PROTEIN,URINE 30 mg/dL (NEGATIVE); UROBILINOGEN,URINE NEGATIVE mg/dL (<2.0)
--- NOTE | 2020-01-11 17:13 | PDOC CONSULTATION ---
Consultation Consult Date: 01/11/20 Attending physician:: MOSES SHARP Provider Consulted: ALIX DODD JR Consult reason:: syncope History of Present Illness Admission Date/PCP: ERWIN JESSICA MD History of Present Illness: ABIGAIL BOUDREAUX is a 84 year old male who this morning around 1130 was in the kitchen sitting down to eat when he had a sharp brief pain in the left side of his head over his temporal region and then had a syncopal spell. States he was only out for a few seconds, however his defibrillator recorded an episode of V. fib and a shock was delivered. Patient states he had a similar episode about 2 weeks ago but he did not have a syncopal spell at that time. On this occasion patient had no chest pain no shortness of breath and is symptomatic free now. Patient had a spell back in October where he was actually admitted to the hospital and had a thorough work-up but at that time he had no head pain prior to his syncope. Patient states this episode in October he did have an episode of shortness of breath following the syncope. Patient's defibrillator has been interrogated and is functioning properly. Patient currently has no complaints at all ,no headache, no chest pain, no shortness of breath ,no nausea ,no vomiting, patient is asking to go home. Patient has had a CT head scan without contrast that shows no acute injury. [facility] has had a chest x-ray that shows no acute cardiopulmonary disease. CBC and differential is normal, opponent is normal at 0.031, CK-MB index is normal at 1.69. Patient has had slightly elevated troponins in the past. Magnesium level is normal at 1.9 but in the low range. Odium 137 potassium 4.4. Hemoglobin A1c is 9.9 Patient's vital signs are stable. Heart rate is between 77 and 99. Pressure 107/64 up to 129/93 I have discussed the case with Dr. Bledsoe, cardiology on-call, dated that if the patient is hemodynamically stable and not having any chest pain, then patient could be discharged home to follow-up with his master sheet clerk Dr. Mora next week. he is currently on a beta-carri Coreg 3.125 twice daily. Patient's pacemaker has been interrogated and is functioning properly. Discussed this with the ER provider and she is going to write for mag oxide 400 mg 1 tablet daily, just to bring his magnesium up slightly. Patient has assured me that he will follow-up with cardiology next week. Patient was told that if he had any further episodes to return to the emergency room. Past Medical History Cardiac Medical History: Reports: Congestive Heart Failure, Coronary Artery Disease, Myocardial Infarction, Hyperlipidema, Hypertension Pulmonary Medical History: Reports: Chronic Obstructive Pulmonary Disease (COPD) Denies: Asthma, Bronchitis, Pneumonia Neurological Medical History: Denies: Seizures Endocrine Medical History: Reports: Diabetes Mellitus Type 2, Hyperthyroidism Denies: Diabetes Mellitus Type 1, Hypothyroidism GI Medical History: Reports: Gastroesophageal Reflux Disease Denies: Cirrhosis, Crohn's Disease, Hepatitis, Ulcerative Colitis Musculoskeltal Medical History: Reports: Arthritis Denies: Gout Skin Medical History: Denies: Eczema, Psoriasis Psychiatric Medical History: Denies: Attention Deficit Hyperactivity Disorder, Bipolar Disorder, Dementia, Depression Hematology: Denies: Anemia, Sickle Cell Disease, Bleeding Tendencies Past Surgical History Past Surgical History: Reports: Appendectomy, Orthopedic Surgery - Cervical spine fusion, Pacemaker - Pacemaker defibrillator January 2018 Social History Smoking Status: Unknown if Ever Smoked Frequency of Alcohol Use: None Hx Recreational Drug Use: No Drugs: None Hx Prescription Drug Abuse: No Family History Family History: Hypertension, Malignancy Parental Family History Reviewed: No Children Family History Reviewed: No Sibling(s) Family History Reviewed.: No Medication/Allergy Home Medications: Apixaban [Eliquis 2.5 mg Tablet] 2.5 mg PO Q12 11/05/19 Baclofen [Baclofen 10 mg Tablet] 5 mg PO Q12 11/05/19 Cetirizine HCl [Zyrtec] 10 mg PO DAILY 11/05/19 Furosemide [Lasix 40 mg Tablet] 40 mg PO BID 11/05/19 Methimazole [Tapazole 5 mg Tablet] 5 mg PO QAM 11/05/19 Omeprazole 40 mg PO QAM 11/05/19 Potassium Chloride [Klor-Con M10] 10 meq PO QAM 11/05/19 Pravastatin Sodium [Pravachol] 20 mg PO QAM 11/05/19 Carvedilol [Coreg 3.125 mg Tablet] 3.125 mg PO Q12 11/06/19 Insulin Aspart [Novolog Flexpen] 6 units SQ MEALS 11/06/19 Polyethylene Glycol 3350 [Miralax Powder 17 gm/Packet] 17 gm PO DAILY 11/06/19 Albuterol Sulfate [Albuterol Sulfate Hfa] 2 puff IH Q4HP PRN 01/11/20 Famotidine 40 mg PO QHS 01/11/20 Gabapentin [Neurontin 100 mg Capsule] 100 mg PO QHS 01/11/20 Insulin Degludec [Tresiba Flextouch U-100] 26 units SUBCUT DAILY 01/11/20 Allergies/Adverse Reactions: No Known Allergies Allergy (Verified 08/24/19 18:45) Review of Systems Constitutional: ABSENT: chills, fever(s), headache(s), weight gain, weight loss Nose, Mouth, and Throat: PRESENT: as per HPI, other - Clear sputum production Cardiovascular: ABSENT: chest pain, dyspnea on exertion, edema, orthropnea, palpitations Respiratory: ABSENT: cough, hemoptysis Neurological: ABSENT: abnormal gait, abnormal speech, confusion, dizziness, foca l weakness, syncope Psychiatric: ABSENT: anxiety, depression, homidical ideation, suicidal ideation Physical Exam Vital Signs: Temp Pulse Resp BP Pulse Ox 97.7 F 87 19 120/76 98 01/11/20 14:14 01/11/20 15:21 01/11/20 15:16 01/11/20 15:21 01/11/20 15:15 Intake & Output 01/10/20 01/11/20 01/12/20 06:59 06:59 06:59 Weight 79.243 kg General appearance: PRESENT: no acute distress, other - Patient sitting up on edge of the bed talking in full sentences. Interview lasted approximately 15 minutes Respiratory exam: PRESENT: clear to auscultation christin. ABSENT: rales, rhonchi, wheezes Cardiovascular exam: PRESENT: RRR. ABSENT: diastolic murmur, rubs, systolic murmur Neurological exam: PRESENT: alert, awake, oriented to person, oriented to place, oriented to time, oriented to situation, CN II-XII grossly intact. ABSENT: motor sensory deficit Psychiatric exam: PRESENT: appropriate affect, normal mood, other - Very pleasant. ABSENT: homicidal ideation, suicidal ideation Results Laboratory Results: 01/11/20 14:00 01/11/20 14:00 01/11/20 01/11/20 01/11/20 14:00 14:00 15:14 WBC 9.4 RBC 3.85 L Hgb 11.7 L Hct 34.2 L MCV 89 MCH 30.3 MCHC 34.2 RDW 16.6 H Plt Count 168 Seg Neutrophils % 80.5 H Sodium 136.7 L Potassium 4.4 Chloride 102 Carbon Dioxide 28 Anion Gap 7 BUN 47 H Creatinine 1.67 H Est GFR ( Amer) 47 L Glucose 254 H Calcium 9.3 Magnesium 1.9 Total Bilirubin 0.6 AST 44 Alkaline Phosphatase 74 Total Protein 6.6 Albumin 3.7 Urine Color STRAW Urine Appearance CLEAR Urine pH 5.0 Ur Specific [place] 1.010 Urine Protein 30 H Urine Glucose (UA) NEGATIVE Urine Ketones NEGATIVE Urine Blood NEGATIVE Urine Nitrite NEGATIVE Ur Leukocyte Esterase NEGATIVE Urine WBC (Auto) 1 Urine RBC (Auto) 0 01/11/20 01/11/20 14:00 14:00 Creatine Kinase 51 L CK-MB (CK-2) 1.69 Troponin I 0.031 Impressions: Chest X-Ray 01/11/20 14:02 IMPRESSION: No evidence of acute cardiopulmonary process. Stable enlarged cardiac silhouette. Head CT 01/11/20 14:40 IMPRESSION: NO ACUTE INTRACRANIAL IMAGING FINDINGS. EVIDENCE OF ACUTE STROKE: NO. Assessment and Plan - Diagnosis (1) Tobacco abuse Is this a current diagnosis for this admission?: Yes (2) Defibrillator discharge Is this a current diagnosis for this admission?: Yes (3) Syncope and collapse Is this a current diagnosis for this admission?: Yes (4) Ventricular fibrillation Is this a current diagnosis for this admission?: Yes (5) Chronic obstructive pulmonary disease Qualifiers: COPD type: unspecified COPD Qualified Code(s): J44.9 - Chronic obstructive pulmonary disease, unspecified Is this a current diagnosis for this admission?: Yes (6) Diabetes mellitus type 2 in nonobese Is this a current diagnosis for this admission?: Yes - Plan Summary Summary: Patient is going to go home today with a prescription for mag oxide 400 mg daily. He is going to call his master sheet clerk Tuesday morning and get in to see his master sheet clerk next week. If his clear sputum production does not clear within the next week he will follow-up with his primary care provider Dr. Erwin Jessica. If he has any further episodes of his defibrillator firing he is to return to the emergency room. Patient is medically stable for discharge I have reviewed patient's previous admission in October of this year as well as the entire work-up that was performed at that time. Cardiology and I have discussed this case in great detail. I did offer the patient admission [facility] for observation which he declined. - Time Time Spent with patient: 35 or more minutes
[2020-01-11 17:42] VITALS: BP 119/89
== END 2020-01-11 18:03 | disposition home or self-care (01) ==
LOC: ER 13:38
DX: R55 Syncope and collapse (principal); I49.01 Ventricular fibrillation; T82.198A Other mechanical complication of other cardiac electronic device, initial encounter; I13.0 Hypertensive heart and chronic kidney disease with heart failure and stage 1 through stage 4 chronic kidney disease, or unspecified chronic kidney disease; E11.22 Type 2 diabetes mellitus with diabetic chronic kidney disease; N18.9 Chronic kidney disease, unspecified; I50.9 Heart failure, unspecified; R53.1 Weakness; R51 Headache; W19.XXXA Unspecified fall, initial encounter; Y92.000 Kitchen of unspecified non-institutional (private) residence as the place of occurrence of the external cause; F17.200 Nicotine dependence, unspecified, uncomplicated; I25.10 Atherosclerotic heart disease of native coronary artery without angina pectoris; J44.9 Chronic obstructive pulmonary disease, unspecified
CPT/HCPCS: 36415; 70450; 71045; 80053; 81001; 82550; 82553; 83735; 84484; 85025; 93005; 93010; 99285

== ENCOUNTER 2020-02-01 23:06 | Emergency (ER) | payer MEDICARE, OTHER ==
--- NOTE | 2020-02-02 02:25 | ER Document Report ---
Entered by GILMAR MANUEL SCRIBE 02/02/20 0144 Acting as scribe for:KATALINA TRAVIS IV, MD ED General - General Chief Complaint: Arm Pain Stated Complaint: WEAKNESS Time Seen by Provider: 02/02/20 01:20 Primary Care Provider: SHARATH ALVAREZ MD [Primary Care Provider] - Follow up as needed Mode of Arrival: Medic Information source: Patient Notes: This 84 year old male patient brought in by EMS presents to the ED today with complaints of RUE pain that started just prior to arrival. Patient describes the pain as a sharp ache from his fingertips to his shoulder that lasted approximately x30-40 minutes. He states that the pain has resolved at this time. He also notes chronic bilateral lower extremity swelling. 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 TRAVEL OUTSIDE OF THE [place] IN LAST 30 DAYS: No - Related Data Allergies/Adverse Reactions: No Known Allergies Allergy (Verified 08/24/19 18:45) Past Medical History - General Information source: Patient, [facility] Records - Social History Smoking Status: Never Smoker Cigarette use (# per day): No Chew tobacco use (# tins/day): No Smoking Education Provided: No Family History: Reviewed & Not Pertinent, Hypertension, Malignancy Patient has suicidal ideation: No Patient has homicidal ideation: No - Past Medical History Cardiac Medical History: Reports: Hx Congestive Heart Failure, Hx Coronary Artery Disease, Hx Heart Attack, Hx Hypercholesterolemia, Hx Hypertension Pulmonary Medical History: Reports: Hx COPD Endocrine Medical History: Reports: Hx Diabetes Mellitus Type 2, Hx Hyperthyroidism GI Medical History: Reports: Hx Gastroesophageal Reflux Disease Musculoskeletal Medical History: Reports Hx Arthritis Past Surgical History: Reports: Hx Appendectomy, Hx Cardiac Surgery - defibrillator, Hx Genitourinary Surgery - prostate ca surgery, Hx Orthopedic Surgery - Cervical spine fusion, Hx Pacemaker - Pacemaker defibrillator January 2018 - Immunizations Hx Diphtheria, Pertussis, Tetanus Vaccination: No Hx Pneumococcal Vaccination: 07/13/17 Review of Systems - Review of Systems Constitutional: No symptoms reported EENT: No symptoms reported Cardiovascular: No symptoms reported Respiratory: No symptoms reported Gastrointestinal: No symptoms reported Genitourinary: No symptoms reported Male Genitourinary: No symptoms reported Musculoskeletal: See HPI, Leg swelling, Other - RUE pain Skin: No symptoms reported Hematologic/Lymphatic: No symptoms reported Neurological/Psychological: No symptoms reported -: Yes All other systems reviewed and negative Physical Exam - Vital signs Vitals: Temp Pulse Resp BP Pulse Ox 98.2 F 75 15 112/82 97 02/01/20 23:18 02/01/20 23:18 02/01/20 23:18 02/01/20 23:18 02/01/20 23:18 Interpretation: Normal - General General appearance: Alert In distress: None - HEENT Head: Normocephalic, Atraumatic Eyes: Normal Pupils: PERRL - Respiratory Respiratory status: No respiratory distress Chest status: Nontender Breath sounds: Normal Chest palpation: Normal - Cardiovascular Rhythm: Regular Heart sounds: Normal auscultation Murmur: No Friction rub: No Gallop: None auscultated - Abdominal Inspection: Normal Distension: No distension Bowel sounds: Normal Tenderness: Nontender - Abdomen soft Organomegaly: No organomegaly - Back Back: Normal, Nontender - Extremities General upper extremity: Normal inspection General lower extremity: Edema - 2+ pitting edema to LE bilaterally - Neurological Neuro grossly intact: Yes - Psychological Associated symptoms: Normal affect, Normal mood - Skin Skin Temperature: Warm Skin Moisture: Dry Skin Color: Normal Course - Re-evaluation Re-evalutation: 02/02/20 04:43 Results of ED MSE discussed with patient. Emergency signs and symptoms, reasons to return to the emergency department discussed with patient. All questions were answered prior to discharge. Patient states he has had no further recurrence of pain in his right upper extremity. - Vital Signs Vital signs: Temp Pulse Resp BP Pulse Ox 98.2 F 75 15 112/82 97 02/01/20 23:18 02/01/20 23:18 02/01/20 23:18 02/01/20 23:18 02/01/20 23:18 - Laboratory Result Diagrams: 02/02/20 02:00 02/02/20 02:00 Laboratory results interpreted by me: 02/02/20 02/02/20 02/02/20 02:00 02:00 02:00 RBC 3.87 L Hgb 11.6 L Hct 34.5 L RDW 17.0 H Carbon Dioxide 33 H Anion Gap 3 L BUN 42 H Creatinine 1.86 H Est GFR ( Amer) 42 L Est GFR (MDRD) Non-Af 35 L Glucose 273 H Urine Protein 30 H Urine Glucose (UA) 50 H Urine Blood SMALL H - EKG Interpretation by Me Additional EKG results interpreted by me: 02/02/20 04:44 EKG obtained on 02/02/2020 at 0157 hrs. was interpreted by this MD. Findings: Atrial sensed, ventricular paced rhythm with a rate of 70,. There are no obvious patterns of ST segment elevation or depression present to suggest acute myocardial ischemia or infarction. Impression: Atrial sensed ventricular paced rhythm with nonspecific ST segments. Discharge - Discharge Clinical Impression: Right upper limb pain Condition: Good Disposition: HOME, SELF-CARE Additional Instructions: Return to the Emergency Department without delay if any worse. HOME CARE INSTRUCTIONS & INFORMATION: Thank you for choosing us for your medical needs. We hope you're satisfied with the care you received. After you leave, you must properly care for your problem and, at the same time, observe its progress. Any condition can change. Some illnesses can change rapidly over hours or days. If your condition worsens, return to the Emergency Department or see your physician promptly. ABOUT YOUR X-RAYS AND EKG'S: If you had an EKG or X-rays taken, they have been read by the Emergency Physician. The X-rays and EKG's will also be read by a Radiologist or [employer] Operator within 24 hours. If discrepancies are noted, you will be notified by telephone. Please be certain the ED has a correct telephone number & address where you can be reached. Also, realize that some fractures or abnormalities do not show up on initial X-rays. If your symptoms continue, see your physician. ABOUT YOUR LABORATORY TEST: If you had laboratory tests, the results have been reviewed by the Emergency Physician. Some test results (for example cultures) may not be available for several days. You will be contacted if any test result shows you need additional treatment. Please be certain the ED has a correct telephone number and address where you can be reached. ABOUT YOUR MEDICATIONS: You will receive instructions on how to take your medicine on the prescription label you receive. Additional information may be provided by the Pharmacy. If you have questions afterwards, call the ED for clarification or further instructions. Some prescribed medications may cause drowsiness. Do not perform tasks such as driving a car or operating machinery without consulting your Pharmacist. If you feel you need a refill of pain me dication, your condition will need re-evaluation. Please do not call for a refill of any medication. ABOUT YOUR SIGNATURE: Signature of this document acknowledges to followin. Understanding that you received emergency treatment and that you may be released before al medical problems are known or treated. Please be certain the ED has a correct phone number & address where you can be reached. 2. Acknowledgement that you will arrange for follow-up care as recommended. 3. Authorization for the Emergency Physician to provide information to your follow-up Physician in order to maximize your care. AT ANY TIME, IF YOUR SYMPTOMS CHANGE SIGNIFICANTLY OR WORSEN OR YOU DEVELOP NEW SYMPTOMS, RETURN TO THE EMERGENCY DEPARTMENT IMMEDIATELY FOR RE-EVALUATION. OUR GOAL IS TO PROVIDE EXCELLENT MEDICAL CARE! WE HOPE THAT WE HAVE MET YOUR EXPECTATIONS DURING YOUR EMERGENCY DEPARTMENT VISIT AND THAT YOU FEEL YOU HAVE RECEIVED EXCELLENT CARE! Referrals: SHARATH ALVAREZ MD [Primary Care Provider] - Follow up as needed I personally performed the services described in the documentation, reviewed and edited the documentation which was dictated to the scribe in my presence, and it accurately records my words and actions.
[2020-02-02 02:54] LABS: ALBUMIN 3.5 g/dL (3.5-5.0); ALKALINE PHOSPHATASE 86 U/L (38-126); ASPARTATE AMINO TRANSFERASE 30 U/L (17-59); BILIRUBIN,TOTAL 0.5 mg/dL (0.2-1.3); BLOOD UREA NITROGEN 42 mg/dL (7-20); CALCIUM 9.4 mg/dL (8.4-10.2); CARBON DIOXIDE 33 mmol/L (22-30); CHLORIDE 101 mmol/L (98-107); GLUCOSE 273 mg/dL (75-110); POTASSIUM 4.1 mmol/L (3.6-5.0); TOTAL PROTEIN 6.5 g/dL (6.3-8.2)
[2020-02-02 02:59] LABS: ANION GAP 3 (5-19)
[2020-02-02 03:03] LABS: ABSOLUTE EOSINOPHILS # (AUTO) 0.1 10^3/uL (0.0-0.6); ABSOLUTE LYMPHOCYTES (AUTO) 1.6 10^3/uL (0.5-4.7); ABSOLUTE MONOCYTES (AUTO) 0.4 10^3/uL (0.1-1.4); ABSOLUTE NEUT (AUTO) 2.1 10^3/uL (1.7-8.2); BASOPHILS % (AUTO) 0.9 % (0-2); EOSINOPHILS % (AUTO) 2.9 % (0-6); HEMATOCRIT 34.5 % (37.9-51.0); HEMOGLOBIN 11.6 g/dL (13.5-17.0); LYMPHOCYTES % (AUTO) 36.4 % (13-45); MEAN CORPUSCULAR HEMOGLOBIN 30.1 pg (27.0-33.4); MEAN CORPUSCULAR HGB CONC 33.7 g/dL (32.0-36.0); MEAN CORPUSCULAR VOLUME 89 fl (80-97); MONOCYTES % (AUTO) 9.9 % (3-13); PLATELET COUNT 152 10^3/uL (150-450); RED BLOOD COUNT 3.87 10^6/uL (4.35-5.55); SEGMENTED NEUTROPHILS % (AUTO) 49.9 % (42-78); TOTAL CELLS COUNTED % (AUTO) 100 %; WHITE BLOOD COUNT 4.3 10^3/uL (4.0-10.5)
[2020-02-02 03:07] LABS: APPEARANCE,URINE CLEAR; BILIRUBIN,URINE NEGATIVE (NEGATIVE); COLOR,URINE YELLOW; GLUCOSE, URINE 50 mg/dL (NEGATIVE); KETONES,URINE NEGATIVE (NEGATIVE); LEUKOCYTE ESTERASE,URINE NEGATIVE (NEGATIVE); NITRITE,URINE NEGATIVE (NEGATIVE); PROTEIN,URINE 30 mg/dL (NEGATIVE); URINE SPECIFIC GRAVITY 1.013; UROBILINOGEN,URINE NEGATIVE mg/dL (<2.0)
[2020-02-02 05:18] VITALS: BP 134/92
--- NOTE | 2020-02-02 08:45 | EKG REPORT ---
SEVERITY:- ABNORMAL ECG - ATRIAL-SENSED VENTRICULAR-PACED RHYTHM : Confirmed by: Kathy Sullivan MD 02-Feb-2020 08:44:52
== END 2020-02-02 05:35 | disposition home or self-care (01) ==
LOC: ER 23:06
DX: M79.601 Pain in right arm (principal); R53.1 Weakness; I11.0 Hypertensive heart disease with heart failure; I50.9 Heart failure, unspecified; I25.10 Atherosclerotic heart disease of native coronary artery without angina pectoris; E78.00 Pure hypercholesterolemia, unspecified; I25.2 Old myocardial infarction; Z98.1 Arthrodesis status
CPT/HCPCS: 36415; 80053; 81001; 84484; 85025; 93005; 93010; 99284

== ENCOUNTER → 2020-04-03 | Outpatient (CLI) | payer MEDICARE, OTHER ==
--- NOTE | 2020-04-03 15:52 | RADIOLOGY REPORT (SQ) ---
EXAM DESCRIPTION: BARIUM SWALLOW ESOPHAGUS IMAGES COMPLETED DATE/TIME: 04/03/2020 9:53 am REASON FOR STUDY: R13.10 DYSPHAGIA, UNSPECIFIED R13.10 DYSPHAGIA, UNSPECIFIED COMPARISON: None. TECHNIQUE: Under fluoroscopic guidance, patient ingested effervescent granules followed by thick and thin barium. Fluoroscopic spot images and routine radiographic images acquired and stored on PACS. 12 MM BARIUM TABLET GIVEN: Barium tablet passed easily through the esophagus and into the stomach wit hout delay. LIMITATIONS: None. FLUOROSCOPY TIME: FLUORO TIME: 3.3 minutes 14 images saved to PACS. FINDINGS: NEUROMUSCULAR COORDINATION OF SWALLOW: Normal. Episode of silent tracheal aspiration was seen. ESOPHAGEAL MOTILITY: Marked esophageal dysmotility with mild tertiary contractions in distal esophagu s. ESOPHAGEAL MUCOSA: Thickened mucosal folds in the distal esophagus, without masses or ulceration iden tified. GASTRO-ESOPHAGEAL JUNCTION: No hiatal hernia or reflux. NON-GI TRACT STRUCTURES: No significant finding. OTHER: No other significant finding. IMPRESSION: THICKENED MUCOSAL FOLDS IN DISTAL ESOPHAGUS. MARKED ESOPHAGEAL DYSMOTILITY. EPISODE OF SILENT ASPIRATION. RECOMMENDATION: None COMMENT: None Quality ID [id number]: Final reports for procedures using fluoroscopy that document radiation exposure nathan zenon, or exposure time and number of fluorographic images (if radiation exposure indices are not avail able) TECHNICAL DOCUMENTATION: JOB ID: [id number] 2010 [employer]- All Rights Reserved Reading location - IP/workstation name: [email or web address]
== END ==
LOC: RAD 09:00
PROVIDERS: ATTEND Otolaryngology
DX: R13.10 Dysphagia, unspecified (principal); R05 Cough; R06.00 Dyspnea, unspecified; K59.00 Constipation, unspecified; M48.02 Spinal stenosis, cervical region; D49.7 Neoplasm of unspecified behavior of endocrine glands and other parts of nervous system; R49.9 Unspecified voice and resonance disorder
CPT/HCPCS: 74220